=== PATIENT | female | born 1960 | race Caucasian/White ===

== ENCOUNTER → 2016-08-07 | Outpatient (CLI) | payer BC, OTHER | END | disposition home or self-care (01) | LOC: MW.CHOBGYN 15:49 | PROVIDERS: ATTEND Obstetrics & Gynecology | DX: N93.9 Abnormal uterine and vaginal bleeding, unspecified (principal) | CPT/HCPCS: 88305 ==

== ENCOUNTER 2016-10-04 23:07 | Inpatient (IN) | payer BC, OTHER ==
--- NOTE | 2016-10-04 23:18 | EDM.PDOC ---
ED HPI GENERAL MEDICAL PROBLEM - General Chief Complaint: Lower Extremity Injury/Pain Stated Complaint: PT HURT RT ANKLE Time Seen by Provider: 10/04/16 23:12 - History of Present Illness INITIAL COMMENTS - FREE TEXT/NARRATIVE: HISTORY AND PHYSICAL: History of present illness: Patient 36-year-old female sensory concern of acute right hip injury that occurred when she was dancing tonight she denies any trauma or concern Review of systems: As per history of present illness and below otherwise all systems reviewed and negative. Past medical history: As per history of present illness and as reviewed below otherwise noncontributory. Surgical history: As per history of present illness and as reviewed below otherwise noncontributory. Social history: No reported history of drug or alcohol abuse. Family history: As per history of present illness and as reviewed below otherwise noncontributory. Physical exam: HEENT: Atraumatic, normocephalic, pupils reactive, negative for conjunctival pallor or scleral icterus, mucous membranes moist, throat clear, neck supple, nontender, trachea midline. Lungs: Clear to auscultation, breath sounds equal bilaterally, chest nontender. Heart: S1S2, regular, negative for clicks, rubs, or JVD. Abdomen: Soft, nondistended, nontender. Negative for masses or hepatosplenomegaly. Negative for costovertebral tenderness. Pelvis: Stable tenderness to palpation of her right hip noted Genitourinary: Deferred. Rectal: Deferred. Extremities: Patient's right lower extremity is externally rotated and slightly shortened neurovascular exam is unremarkable Neuro: Awake, alert, oriented. Cranial nerves II through XII unremarkable. Cerebellum unremarkable. Motor and sensory unremarkable throughout. Exam nonfocal. Diagnostics: X-ray right hip/pelvis CBC CMP PT/INR chest x-ray EKG type and screen Therapeutics: Normal saline at 125 an hour Dilaudid 1 mg IV Zofran 4 mg IV Impression: #1 acute right hip injury/fracture Definitive disposition and diagnosis as appropriate pending reevaluation and review of above. Right Hip Pain Score (Numeric/FACES): 8 - Related Data Allergies Allergy/AdvReac Type Severity Reaction Status Date / Time bee stings Allergy Swelling Uncoded 10/04/16 23:23 Home Meds: Home Meds Humalog 2 units SQ ASDIRECTED PRN 09/06/13 [History] Insulin Glarg,Human.Rec.Analog [LantUS Solostar] 30 unit SUBCUT DAILY 09/06/13 [ History] Lisinopril 20 mg PO DAILY 09/06/13 [History] Escitalopram [Lexapro] 10 mg PO DAILY 11/06/13 [History] Metoprolol Succinate [Toprol XL] 25 mg PO DAILY 11/06/13 [History] Past Medical History Cardiovascular History: Reports: Arrhythmia, Hypertension Genitourinary History: Reports: None Musculoskeletal History: Reports: Arthritis Psychiatric History: Reports: Anxiety, Depression Endocrine/Metabolic History: Reports: Diabetes, Type I Dermatologic History: Reports: None - Infectious Disease History Infectious Disease History: Reports: Chicken Pox, MRSA - Past Surgical History Female Surgical History: Reports: Tubal Ligation Dermatological Surgical History: Reports: Skin Graft Social & Family History - Family History Family Medical History: Noncontributory - Tobacco Use Smoking Status *Q: Never Smoker Second Hand Smoke Exposure: No - Caffeine Use Caffeine Use: Reports: None - Alcohol Use Days Per Week of Alcohol Use: 0 Number of Drinks Per Day: 4 Total Drinks Per Week: 0 - Recreational Drug Use Recreational Drug Use: No Review of Systems - Review of Systems Review Of Systems: ROS reveals no pertinent complaints other than HPI. ED EXAM, GENERAL - Physical Exam Exam: See Below (See dictation) Course - Vital Signs Last Recorded V/S: Last Vital Signs Temp 36.4 C 10/04/16 23:14 Pulse 75 10/04/16 23:14 Resp 16 10/04/16 23:14 BP 187/87 H 10/04/16 23:14 Pulse Ox 99 10/04/16 23:14 - Orders/Labs/Meds Orders: Active Orders 24 hr Category Date Time Status Hip Min 2V or 3V w Pelvis Rt [CR] Stat Exams 10/04/16 23:18 Taken Departure - Departure Time of Disposition: 23:43 Disposition: Admitted As Inpatient 67 Condition: Good Clinical Impression: Intertrochanteric fracture, hip - Discharge Information Forms: ED Department Discharge - My Orders Last 24 Hours: My Active Orders 10/04/16 23:18 Hip Min 2V or 3V w Pelvis Rt [CR] Stat - Assessment/Plan Last 24 Hours: My Active Orders 10/04/16 23:18 Hip Min 2V or 3V w Pelvis Rt [CR] Stat
[2016-10-04] MEDS ORDERED: HYDROmorphone 2 MG/ML Syringe IVPUSH ONE (23:44)
[2016-10-04] MEDS ORDERED: Sodium Chloride 0.9% 2.5 ML Syringe FLUSH PRN (23:44)
[2016-10-04] MEDS ORDERED: Ondansetron 4 MG/2 ML SDV IVPUSH ONE (23:44)
[2016-10-04] MEDS ORDERED: Sodium Chloride 0.9% 10 ML Syringe FLUSH PRN (23:44)
[2016-10-04] MEDS ORDERED: Sodium Chloride 0.9% 1,000 ML IV SCH (23:45)
--- NOTE | 2016-10-05 00:33 | PCM.HP ---
H&P History of Present Illness - General Date of Service: 10/05/16 - History of Present Illness Initial Comments - Free Text/Narative: she presented to the ED after a fall. She was diagnosed with a right hip fracture. Dr Evans was consulted by the emergency room and I was asked to admit the patient. She appeared intoxicated in the ED. She denies associated head injury She admits that she has been drinking but is very evasive about when and how much. She says that she does not drink everyday. Right Hip Pain Score (Numeric/FACES): 8 - Related Data Allergies/Adverse Reactions: Allergies Allergy/AdvReac Type Severity Reaction Status Date / Time bee stings Allergy Swelling Uncoded 10/04/16 23:23 Home Medications: Home Meds Humalog 2 units SQ ASDIRECTED PRN 09/06/13 [History] Insulin Glarg,Human.Rec.Analog [LantUS Solostar] 30 unit SUBCUT DAILY 09/06/13 [ History] Lisinopril 20 mg PO DAILY 09/06/13 [History] Escitalopram [Lexapro] 10 mg PO DAILY 11/06/13 [History] Metoprolol Succinate [Toprol XL] 25 mg PO DAILY 11/06/13 [History] Past Medical History HEENT History: Reports: None Cardiovascular History: Reports: Arrhythmia, Hypertension. Denies: Afib, CAD, Heart Failure Respiratory History: Denies: COPD, Croup, Cystic Fibrosis Gastrointestinal History: Denies: Cirrhosis Genitourinary History: Reports: None. Denies: Chronic Renal Insuffiency Musculoskeletal History: Reports: Arthritis Neurological History: Denies: Alzheimers Disease, MS, Reflex Sympathetic Dystrophy Psychiatric History: Reports: Anxiety, Depression Endocrine/Metabolic History: Reports: Diabetes, Type I Oncologic (Cancer) History: Reports: None Dermatologic History: Reports: None - Infectious Disease History Infectious Disease History: Reports: Chicken Pox, MRSA - Past Surgical History Female Surgical History: Reports: Tubal Ligation Dermatological Surgical History: Reports: Skin Graft Social & Family History - Family History Family Medical History: Noncontributory - Tobacco Use Smoking Status *Q: Never Smoker Second Hand Smoke Exposure: No - Caffeine Use Caffeine Use: Reports: None - Alcohol Use Alcohol Use History: Yes Days Per Week of Alcohol Use: 0 Number of Drinks Per Day: 4 Total Drinks Per Week: 0 Alcohol Use Comment: when asked she would not tell me details about how much she drinks alcohol - Recreational Drug Use Recreational Drug Use: No H&P Review of Systems - Review of Systems: Review Of Systems: See Below General: Denies: Fever, Chills HEENT: Denies: Ear Pain, Sore Throat Pulmonary: Denies: Shortness of Breath, Wheezing, Cough, Sputum Cardiovascular: Denies: Chest Pain, Palpitations, Edema Gastrointestinal: Denies: Abdominal Pain, Black Stool, Bloody Stool, Hematemesis , Hematochezia, Melena, Stool Incontinence, Vomiting Genitourinary: Denies: Dysuria, Hematuria Skin: Denies: Jaundice Neurological: Denies: Headache Exam - Exam Exam: See Below - Vital Signs Vital Signs: Last Vital Signs Temp 97.6 F 10/04/16 23:14 Pulse 75 10/04/16 23:14 Resp 16 10/04/16 23:14 BP 187/87 H 10/04/16 23:14 Pulse Ox 99 10/04/16 23:14 Weight: 70.3 kg - Exam General: Alert, Cooperative, Other (smells of alcohol; appears intoxicated. ) HEENT: EOMI Neck: Trachea Midline Lungs: Clear to Auscultation, Normal Respiratory Effort Cardiovascular: Regular Rate, Regular Rhythm Abdomen: Soft. No: Tenderness (Female) Exam: Deferred Rectal (Female) Exam: Deferred Extremities: Other (RLE : marked pain at the hip with any movement) Neurological: Cranial Nerves Intact, Normal Speech Neuro Extensive - Motor, Sensory, Reflexes: CN II-XII Intact. No: Facial palsy (L), Facial Palsy (R) Psychiatric: Other (no tremor). No: Agitated, Hallucinations - Patient Data Result Diagrams: 10/04/16 23:40 *Q Meaningful Use (ADM) - VTE *Q VTE Criteria *Q: - Stroke *Q Stroke Criteria *Q: - AMI *Q AMI Criteria *Q: - Problem List (1) Alcohol intoxication SNOMED Code(s): 02729816 ICD Code: F10.929 - ALCOHOL USE, UNSPECIFIED WITH INTOXICATION, UNSPECIFIED Status: Acute Current Visit: Yes (2) Intertrochanteric fracture, hip SNOMED Code(s): 962084576 ICD Code: S72.143A - DISPLACED INTERTROCHANTERIC FRACTURE OF UNSP FEMUR, INIT Status: Acute Current Visit: Yes Problem List Initiated/Reviewed/Updated: Yes Orders Last 24hrs: Active Orders 24 hr Category Date Time Status ETOH [ETHANOL BLOOD MEDICAL] [CHEM] Stat Lab 10/05/16 00:20 Received MAGNESIUM [CHEM] Routine Lab 10/05/16 00:20 Received Medication Orders Sodium Chloride (Normal Saline) 1,000 mls @ 125 mls/hr IV STAT NILE Last Admin: 10/05/16 00:05 Dose: 125 mls/hr Sodium Chloride (Saline Flush) 10 ml FLUSH ASDIRECTED PRN PRN Reason: Keep Vein Open Sodium Chloride (Saline Flush) 2.5 ml FLUSH ASDIRECTED PRN PRN Reason: Keep Vein Open Assessment/Plan Comment:: admit DR Evans already notified check chemistries check alcohol level banana bag monitor in ICU ativan prn per JAY scale Will check PT/ INR; She should have an acceptable surgical risk but I recommend waiting at least until am. will check EKG. I recommend observation in the ICU post operatively as she may be at high risk for alcohol withdrawl complications. She is evasive regarding her alcohol history and we do not know what her alcohol intake might be.
[2016-10-05] MEDS ORDERED: LORazepam 2 MG/ML MDV IVPUSH PRN (00:37)
[2016-10-05] MEDS ORDERED: MVI, Adult with Vitamin K 10 ML, Thiamine 100 MG, Folic Acid 1 MG in Sodium Chloride 0.... IV ONE ×4 (00:37)
[2016-10-05] MEDS: Insulin Aspart 100 Units/ML 3 ML Pen SUBCUT SCH ×5 (01:27→21:22)
[2016-10-05] MEDS: HYDROmorphone 1 MG/ML Syringe IVPUSH PRN ×5 (02:21→21:35)
[2016-10-05] MEDS: Ondansetron 4 MG/2 ML SDV IVPUSH PRN ×3 (04:32→16:52)
--- NOTE | 2016-10-05 06:15 | PCM.CONS ---
H&P History of Present Illness - General Date of Service: 10/05/16 Source of Information: Patient History Limitations: Reports: No Limitations - History of Present Illness Initial Comments - Free Text/Narative: 56 y/o female who was dancing last night. States her R hip suddenly gave out on her and she fell. c/o pain in her R hip and groin. Denies other injuries. Was evaluated in ER. XR show fracture of R hip, IT. Admitted for evaluation. Was seen by hospitalist. BG and ETOH found to be elevated, Na decreased. Denies previous h/o R hip pain. Denies distal paralysis, paresthesias. No h/o blood clots. Symptom Onset Date: 10/04/16 Quality: Reports: Sharp, Stabbing Improves with: Reports: Immobilization, Medication Worsens with: Reports: Movement Context: Reports: Trauma Associated Symptoms: Reports: No Other Symptoms Right Hip Pain Score (Numeric/FACES): 6 - Related Data Allergies/Adverse Reactions: Allergies Allergy/AdvReac Type Severity Reaction Status Date / Time bee stings Allergy Swelling Uncoded 10/04/16 23:23 Home Medications: Home Meds Humalog 2 units SQ ASDIRECTED PRN 09/06/13 [History] Insulin Glarg,Human.Rec.Analog [LantUS Solostar] 30 unit SUBCUT DAILY 09/06/13 [ History] Lisinopril 20 mg PO DAILY 09/06/13 [History] Escitalopram [Lexapro] 10 mg PO DAILY 11/06/13 [History] Metoprolol Succinate [Toprol XL] 25 mg PO DAILY 11/06/13 [History] Past Medical History HEENT History: Reports: None Cardiovascular History: Reports: Arrhythmia, Hypertension Respiratory History: Denies: COPD, Croup, Cystic Fibrosis Gastrointestinal History: Denies: Cirrhosis Genitourinary History: Reports: None Musculoskeletal History: Reports: Arthritis, Other (See Below) (h/o proximal humerus fracture treated conservatively) Neurological History: Denies: Alzheimers Disease, MS, Reflex Sympathetic Dystrophy Psychiatric History: Reports: Anxiety, Depression Endocrine/Metabolic History: Reports: Diabetes, Type I Oncologic (Cancer) History: Reports: None Dermatologic History: Reports: None - Infectious Disease History Infectious Disease History: Reports: Chicken Pox, MRSA (ankle wound ~5 years ago ) - Past Surgical History Female Surgical History: Reports: Tubal Ligation Dermatological Surgical History: Reports: Skin Graft Social & Family History - Family History Family Medical History: Noncontributory - Tobacco Use Smoking Status *Q: Never Smoker Second Hand Smoke Exposure: Yes - Caffeine Use Caffeine Use: Reports: None - Alcohol Use Days Per Week of Alcohol Use: 0 Number of Drinks Per Day: 4 Total Drinks Per Week: 0 Date of Last Drink: 10/04/16 Time of Last Drink: 20:00 - Recreational Drug Use Recreational Drug Use: No H&P Review of Systems - Review of Systems: Review Of Systems: See Below General: Reports: No Symptoms HEENT: Reports: No Symptoms Pulmonary: Reports: No Symptoms Cardiovascular: Reports: No Symptoms Gastrointestinal: Reports: No Symptoms Genitourinary: Reports: No Symptoms Musculoskeletal: Reports: Joint Pain Skin: Reports: No Symptoms Psychiatric: Reports: No Symptoms Neurological: Reports: No Symptoms Hematologic/Lymphatic: Reports: No Symptoms Immunologic: Reports: No Symptoms Exam - Exam Exam: See Below - Vital Signs Vital Signs: Last Vital Signs Temp 98.4 F 10/05/16 04:00 Pulse 76 10/05/16 01:00 Resp 10 L 10/05/16 05:00 BP 108/51 L 10/05/16 05:00 Pulse Ox 96 10/05/16 05:00 Weight: 70.7 kg - Exam General: Alert, Oriented, Cooperative HEENT: Conjunctiva Clear, Hearing Intact, Nares Patent, Pupils Equal Neck: Supple, Trachea Midline, 2 Lungs: Normal Respiratory Effort Cardiovascular: Regular Rate Abdomen: Soft, Pelvis Stable (Female) Exam: Deferred Rectal (Female) Exam: Deferred Neuro Extensive - Mental Status: Alert, Oriented x3, Normal Mood/Affect, Normal Cognition Psychiatric: Alert, Normal Affect, Normal Mood Physical Exam Comments:: Exam of RLE shows no obvious deformity. Pain with gently log rolling of R hip, no pain with L hip motion. No TTP about knee, ankle. No calf tenderness. AT/EHL/ gastroc 5/5. Sensation intact. DP 2+. 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 Displaced fracture through R hip IT. Consult PN Assessment/Plan Procedures: Procedures ASSAY OF LACTIC ACID (01/21/16) ASSAY OF LIPASE (12/06/13) ASSAY OF NATRIURETIC PEPTIDE (01/21/16) BLOOD CULTURE FOR BACTERIA (01/21/16) CHEST X-RAY 2VW FRONTAL&LATL (01/21/16) COMPLETE CBC W/AUTO DIFF WBC (01/21/16) COMPREHEN METABOLIC PANEL (01/21/16) CT ABD & PELV W/CONTRAST (11/06/13) ELECTROCARDIOGRAM TRACING (01/21/16) EMERGENCY DEPT VISIT (01/21/16) EMERGENCY DEPT VISIT (11/08/15) EMERGENCY DEPT VISIT (07/23/15) EMERGENCY DEPT VISIT (07/13/14) EMERGENCY DEPT VISIT (09/06/13) EXTRACRANIAL BILAT STUDY (01/03/16) GLUCOSE BLOOD TEST (11/08/15) HYDRATE IV INFUSION ADD-ON (07/13/14) HYDRATION IV INFUSION INIT (01/21/16) ROUTINE VENIPUNCTURE (07/13/14) THER/PROPH/DIAG INJ IV PUSH (12/06/13) TISSUE EXAM BY PATHOLOGIST (08/07/16) TRANSVAGINAL US NON-OB (06/04/16) TX/PRO/DX INJ NEW DRUG ADDON (11/06/13) URINALYSIS AUTO W/SCOPE (01/21/16) X-RAY EXAM OF FOOT (01/21/16) (1) Intertrochanteric fracture, hip SNOMED Code(s): 501535916 Code(s): S72.143A - DISPLACED INTERTROCHANTERIC FRACTURE OF UNSP FEMUR, INIT Current Visit: Yes Problem List Initiated/Reviewed/Updated: Yes Plan: With the unstable R hip IT hip fx, I am recommending surgical treatment--CR R hip with insertion of CM nail. The procedure was discussed with the patient along with the post operative course. Risks of procedure include, but are not limited to, infection, N/V injury, non union, malunion, HW irritation, blood clots, need for transfusion, and anesthetic complications. Patient seems to understand these risks and would like to proceed. With her multiple medical comorbidities including elevated BG, ETOH intoxication , and hyponatremia, would recommend further medical evaluation. Will plan to have hospitalist see today and make recommendations. If he feels she is medically ready for surgery tomorrow am, will plan to proceed. Otherwise, we will plan on proceeding when she is medically clear.
[2016-10-05] MEDS ORDERED: Pantoprazole 40 MG in Sodium Chloride 0.9% 10 ML IVPUSH ONE (12:45)
[2016-10-05] MEDS: Acetaminophen 500 MG Tab PO PRN (13:38)
--- NOTE | 2016-10-05 13:40 | PCM.PN ---
- General Info Date of Service: 10/05/16 - Review of Systems General: Denies: Fever Systems Review Comment:: she feels nauseated and vomited today. - Patient Data Vitals - most recent: Last Vital Signs Temp 98.6 F 10/05/16 11:00 Pulse 76 10/05/16 01:00 Resp 13 10/05/16 12:00 BP 138/59 L 10/05/16 12:00 Pulse Ox 96 10/05/16 12:00 Weight - most recent: 70.7 kg I&O - last 24 hours: Intake & Output 10/04/16 10/05/16 10/05/16 22:59 06:59 14:59 Intake Total 0 2000 Output Total 1100 Balance -1100 2000 Lab Results last 24 hrs: Laboratory Results - last 24 hr 10/05/16 10/05/16 10/05/16 Range/Units 00:03 01:16 06:02 WBC 17.67 H (4.0-11.0) K/uL RBC 3.82 L (4.30-5.90) M/uL Hgb 11.6 L (12.0-16.0) g/dL Hct 35.1 L (36.0-46.0) % MCV 91.9 (80.0-98.0) fL MCH 30.4 (27.0-32.0) pg MCHC 33.0 (31.0-37.0) g/dL RDW Std Deviation 42.2 (28.0-62.0) fl RDW Coeff of Mahesh 13 (11.0-15.0) % Plt Count 288 (150-400) K/uL MPV 10.70 (7.40-12.00) fL Neut % (Auto) 77.5 (48.0-80.0) % Lymph % (Auto) 12.1 L (16.0-40.0) % Craig % (Auto) 8.5 (0.0-15.0) % Eos % (Auto) 1.8 (0.0-7.0) % Baso % (Auto) 0.1 (0.0-1.5) % Neut # (Auto) 13.7 H (1.4-5.7) K/uL Lymph # (Auto) 2.1 (0.6-2.4) K/uL Craig # (Auto) 1.5 H (0.0-0.8) K/uL Eos # (Auto) 0.3 (0.0-0.7) K/uL Baso # (Auto) 0.0 (0.0-0.1) K/uL Nucleated RBC % 0.0 /100WBC Nucleated RBCs # 0 K/uL Sodium (136-146) mmol/L Potassium (3.5-5.1) mmol/L Chloride (98-110) mmol/L Carbon Dioxide (21-31) mmol/L BUN (6.0-23.0) mg/dL Creatinine (0.6-1.5) mg/dL Est Cr Clr Drug Dosing mL/min Estimated GFR (MDRD) ml/min Glucose (60-110) mg/dL POC Glucose 349 H (60-110) mg/dL Calcium (8.8-10.8) mg/dL Magnesium (1.5-2.3) mEq/L Total Bilirubin (0.1-1.5) mg/dL AST (5-40) IU/L ALT (8-54) IU/L Alkaline Phosphatase (40-150) Total Protein (6.0-8.0) g/dL Albumin (3.5-5.0) g/dL Globulin (2.0-3.5) g/dL Albumin/Globulin Ratio (1.3-2.8) Blood Type O POSITIVE Antibody Screen NEGATIVE 10/05/16 10/05/16 10/05/16 Range/Units 06:02 06:47 10:55 WBC (4.0-11.0) K/uL RBC (4.30-5.90) M/uL Hgb (12.0-16.0) g/dL Hct (36.0-46.0) % MCV (80.0-98.0) fL MCH (27.0-32.0) pg MCHC (31.0-37.0) g/dL RDW Std Deviation (28.0-62.0) fl RDW Coeff of Mahesh (11.0-15.0) % Plt Count (150-400) K/uL MPV (7.40-12.00) fL Neut % (Auto) (48.0-80.0) % Lymph % (Auto) (16.0-40.0) % Craig % (Auto) (0.0-15.0) % Eos % (Auto) (0.0-7.0) % Baso % (Auto) (0.0-1.5) % Neut # (Auto) (1.4-5.7) K/uL Lymph # (Auto) (0.6-2.4) K/uL Craig # (Auto) (0.0-0.8) K/uL Eos # (Auto) (0.0-0.7) K/uL Baso # (Auto) (0.0-0.1) K/uL Nucleated RBC % /100WBC Nucleated RBCs # K/uL Sodium 137 (136-146) mmol/L Potassium 4.3 (3.5-5.1) mmol/L Chloride 104 (98-110) mmol/L Carbon Dioxide 21 (21-31) mmol/L BUN 36 H (6.0-23.0) mg/dL Creatinine 1.2 (0.6-1.5) mg/dL Est Cr Clr Drug Dosing 53.65 mL/min Estimated GFR (MDRD) 46.6 ml/min Glucose 123 H (60-110) mg/dL POC Glucose 118 H 169 H (60-110) mg/dL Calcium 8.6 L (8.8-10.8) mg/dL Magnesium 1.6 (1.5-2.3) mEq/L Total Bilirubin 0.4 (0.1-1.5) mg/dL AST 20 (5-40) IU/L ALT 25 (8-54) IU/L Alkaline Phosphatase 108 (40-150) Total Protein 6.4 (6.0-8.0) g/dL Albumin 3.8 (3.5-5.0) g/dL Globulin 2.6 (2.0-3.5) g/dL Albumin/Globulin Ratio 1.5 (1.3-2.8) Blood Type Antibody Screen Med Orders - Current: Current Medications Acetaminophen (Tylenol Extra Strength) 1,000 mg PO Q6H PRN PRN Reason: Pain Hydromorphone HCl (Dilaudid) 1 mg IVPUSH Q2H PRN PRN Reason: Pain (severe 7-10) Last Admin: 10/05/16 10:33 Dose: 1 mg Sodium Chloride (Normal Saline) 1,000 mls @ 125 mls/hr IV STAT NILE Last Infusion: 10/05/16 12:56 Dose: 100 mls/hr Vancomycin HCl 1 gm/ Sodium (Chloride) 250 mls @ 167 mls/hr IV ONETIME ONE Stop: 10/06/16 08:29 Pantoprazole Sodium 40 mg/ (Sodium Chloride) 10 mls @ 300 mls/hr IVPUSH Q12H NILE Sodium Chloride (Normal Saline) 1,000 mls @ 100 mls/hr IV ASDIRECTED NILE Insulin Aspart (Novolog) 0 unit SUBCUT QIDACANDBED NILE PRN Reason: Protocol Last Admin: 10/05/16 10:57 Dose: 2 units Lorazepam (Ativan) 0 mg IVPUSH Q4H PRN; Protocol PRN Reason: Anxiety Ondansetron HCl (Zofran) 4 mg IVPUSH Q4H PRN PRN Reason: Nausea Last Admin: 10/05/16 10:53 Dose: 4 mg Sodium Chloride (Saline Flush) 10 ml FLUSH ASDIRECTED PRN PRN Reason: Keep Vein Open Sodium Chloride (Saline Flush) 2.5 ml FLUSH ASDIRECTED PRN PRN Reason: Keep Vein Open Discontinued Medications Hydromorphone HCl (Dilaudid) 1 mg IVPUSH ONETIME ONE Stop: 10/04/16 23:45 Last Admin: 10/05/16 00:06 Dose: 1 mg Multivitamins/Minerals 10 ml/Thiamine HCl 100 mg/ Folic Acid 1 mg/ Sodium Chloride 1,011.2 mls @ 125 mls/hr IV DAILY ONE Stop: 10/05/16 08:42 Last Admin: 10/05/16 01:24 Dose: 125 mls/hr Pantoprazole Sodium 40 mg/ (Sodium Chloride) 10 mls @ 300 mls/hr IVPUSH NOW ONE Stop: 10/05/16 12:46 Last Admin: 10/05/16 13:18 Dose: 300 mls/hr Insulin Aspart (Novolog) 0 unit SUBCUT Q6H NILE PRN Reason: Protocol Last Admin: 10/05/16 06:47 Dose: Not Given Ondansetron HCl (Zofran) 4 mg IVPUSH ONETIME ONE Stop: 10/04/16 23:45 Last Admin: 10/05/16 00:06 Dose: 4 mg - Exam General: alert, oriented, cooperative Neck: trachea midline Lungs: Clear to auscultation, Normal respiratory effort Cardiovascular: Regular Rate, Regular Rhythm Abdomen: no tenderness - Problem List & Annotations (1) Alcohol intoxication SNOMED Code(s): 02251601 Code(s): F10.929 - ALCOHOL USE, UNSPECIFIED WITH INTOXICATION, UNSPECIFIED Status: Acute Current Visit: Yes (2) Intertrochanteric fracture, hip SNOMED Code(s): 254312119 Code(s): S72.143A - DISPLACED INTERTROCHANTERIC FRACTURE OF UNSP FEMUR, INIT Status: Acute Current Visit: Yes (3) Diabetes mellitus SNOMED Code(s): 49342498 Code(s): E11.9 - TYPE 2 DIABETES MELLITUS WITHOUT COMPLICATIONS Status: Acute Current Visit: Yes - Problem List Review Problem List Initiated/Reviewed/Updated: Yes - My Orders Last 24 Hours: My Active Orders 10/04/16 23:46 Admission Status [Patient Status] [ADT] Routine Consult to Physician [CONS] Routine 10/05/16 00:37 Blood Glucose Check, Bedside [RC] QIDACANDBED Oxygen Therapy [RC] PRN Vital Signs [RC] Q1H HYDROmorphone [Dilaudid] 1 mg IVPUSH Q2H PRN LORazepam [Ativan] See Protocol IVPUSH Q4H PRN Ondansetron [Zofran] 4 mg IVPUSH Q4H PRN Resuscitation Status Routine 10/05/16 00:45 Norris Catheter Insertion [Insert Urinary Catheter] [OM.PC] Q24H 10/05/16 02:49 Urinary Catheter Assessment [RC] Q4H 10/05/16 05:35 Notify Provider Consults [RC] ASDIRECTED 10/05/16 11:30 Insulin Aspart [NovoLOG] See Protocol SUBCUT QIDACANDBED 10/05/16 12:45 Sodium Chloride 0.9% [Normal Saline] 1,000 ml IV ASDIRECTED 10/05/16 22:00 Pantoprazole [ProTONIX IV] 40 mg Sodium Chloride 0.9% [Normal Saline] 10 ml IVPUSH Q12H 10/06/16 05:11 CBC WITH AUTO DIFF [HEME] AM COMPREHENSIVE METABOLIC PN,CMP [CHEM] AM MAGNESIUM [CHEM] AM 10/07/16 05:11 CBC WITH AUTO DIFF [HEME] AM COMPREHENSIVE METABOLIC PN,CMP [CHEM] AM MAGNESIUM [CHEM] AM - Plan Plan:: admit DR Evans already notified check chemistries check alcohol level banana bag monitor in ICU ativan prn per CIWA scale Will check PT/ INR; She should have an acceptable surgical risk but I recommend waiting at least until am. will check EKG. I recommend observation in the ICU post operatively as she may be at high risk for alcohol withdrawl complications. She is evasive regarding her alcohol history and we do not know what her alcohol intake might be. Thierno Yancey MD 10/05/2016 monitor blood sugars. she has not had signs or symptoms of alcohol withdrawl according to nursing staff. I read Dr Evans's consult anticipate ORIF tomorrow. symptomatic treatement of nausea Thierno yancey MD
[2016-10-05] MEDS: Sodium Chloride 0.9% 1,000 ML IV SCH (17:12)
[2016-10-05] MEDS: Pantoprazole 40 MG in Sodium Chloride 0.9% 10 ML IVPUSH SCH (21:23)
[2016-10-06] MEDS: HYDROmorphone 1 MG/ML Syringe IVPUSH PRN ×3 (02:32→13:05)
[2016-10-06] MEDS: Sodium Chloride 0.9% 1,000 ML IV SCH (03:14)
[2016-10-06 06:37] LABS: CHLORIDE,CL 105 mmol/L (98-110); SODIUM,NA 135 mmol/L (136-146)
[2016-10-06] MEDS ORDERED: Ondansetron 4 MG/2 ML SDV ONE (07:22)
[2016-10-06] MEDS ORDERED: Propofol 200 MG/20 ML SDV ONE (07:23)
[2016-10-06] MEDS ORDERED: Midazolam 1 MG/ML 2 ML SDV ONE (07:23)
[2016-10-06] MEDS ORDERED: fentaNYL 100 MCG/2 ML SDV ONE (07:23)
[2016-10-06] MEDS: Insulin Aspart 100 Units/ML 3 ML Pen SUBCUT SCH ×4 (07:24→21:05)
[2016-10-06] MEDS ORDERED: Scopolamine 1.5 MG Transdermal Patch ONE (07:45)
--- NOTE | 2016-10-06 08:01 | PCM.PREANE ---
Preanesthetic Assessment - Anesthesia/Transfusion/Family Hx Anesthesia History: Prior Anesthesia Without Reaction Transfusion History: No Prior Transfusion(s) - Review of Systems Gastrointestinal: Nausea Other: Reports: None - Physical Assessment O2 Sat by Pulse Oximetry: 97 Respiratory Rate: 12 Vital Signs: Last Vital Signs Temp 37.4 C 10/06/16 07:37 Pulse 76 10/05/16 01:00 Resp 12 10/06/16 07:37 BP 175/66 H 10/06/16 07:37 Pulse Ox 97 10/06/16 07:37 Height: 5 ft 8.11 in Weight: 71.4 kg ASA Class: 2E Mental Status: Alert & Oriented x3 Airway Class: Mallampati = 2 Dentition: Reports: Normal Dentition Thyro-Mental Finger Breadths: 3 Mouth Opening Finger Breadths: 3 ROM/Head Extension: Full - Lab Values: Laboratory Last Values WBC 10.99 K/uL (4.0-11.0) 10/06/16 05:50 RBC 3.63 M/uL (4.30-5.90) L 10/06/16 05:50 Hgb 11.1 g/dL (12.0-16.0) L 10/06/16 05:50 Hct 34.2 % (36.0-46.0) L 10/06/16 05:50 MCV 94.2 fL (80.0-98.0) 10/06/16 05:50 MCH 30.6 pg (27.0-32.0) 10/06/16 05:50 MCHC 32.5 g/dL (31.0-37.0) 10/06/16 05:50 RDW Std Deviation 43.5 fl (28.0-62.0) 10/06/16 05:50 RDW Coeff of Mahesh 13 % (11.0-15.0) 10/06/16 05:50 Plt Count 257 K/uL (150-400) 10/06/16 05:50 MPV 11.00 fL (7.40-12.00) 10/06/16 05:50 Neut % (Auto) 66.0 % (48.0-80.0) 10/06/16 05:50 Lymph % (Auto) 22.4 % (16.0-40.0) 10/06/16 05:50 [place] % (Auto) 8.8 % (0.0-15.0) 10/06/16 05:50 Eos % (Auto) 2.6 % (0.0-7.0) 10/06/16 05:50 Baso % (Auto) 0.2 % (0.0-1.5) 10/06/16 05:50 Neut # (Auto) 7.3 K/uL (1.4-5.7) H 10/06/16 05:50 Lymph # (Auto) 2.5 K/uL (0.6-2.4) H 10/06/16 05:50 [place] # (Auto) 1.0 K/uL (0.0-0.8) H 10/06/16 05:50 Eos # (Auto) 0.3 K/uL (0.0-0.7) 10/06/16 05:50 Baso # (Auto) 0.0 K/uL (0.0-0.1) 10/06/16 05:50 Nucleated RBC % 0.0 /100WBC 10/06/16 05:50 Nucleated RBCs # 0 K/uL 10/06/16 05:50 INR 0.88 (0.86-1.11) 10/04/16 23:40 Sodium 135 mmol/L (136-146) L 10/06/16 05:50 Potassium 4.8 mmol/L (3.5-5.1) 10/06/16 05:50 Chloride 105 mmol/L (98-110) 10/06/16 05:50 Carbon Dioxide 20 mmol/L (21-31) L 10/06/16 05:50 BUN 26 mg/dL (6.0-23.0) H 10/06/16 05:50 Creatinine 0.9 mg/dL (0.6-1.5) 10/06/16 05:50 Est Cr Clr Drug Dosing 71.53 mL/min 10/06/16 05:50 Estimated GFR (MDRD) > 60.0 ml/min 10/06/16 05:50 Glucose 295 mg/dL (60-110) H 10/06/16 05:50 POC Glucose 276 mg/dL (60-110) H 10/06/16 07:20 Calcium 8.2 mg/dL (8.8-10.8) L 10/06/16 05:50 Magnesium 1.5 mEq/L (1.5-2.3) 10/06/16 05:50 Total Bilirubin 0.7 mg/dL (0.1-1.5) 10/06/16 05:50 AST 17 IU/L (5-40) 10/06/16 05:50 ALT 21 IU/L (8-54) 10/06/16 05:50 Alkaline Phosphatase 104 (40-150) 10/06/16 05:50 Total Protein 5.6 g/dL (6.0-8.0) L 10/06/16 05:50 Albumin 3.2 g/dL (3.5-5.0) L 10/06/16 05:50 Globulin 2.4 g/dL (2.0-3.5) 10/06/16 05:50 Albumin/Globulin Ratio 1.3 (1.3-2.8) 10/06/16 05:50 Ethyl Alcohol 250.6 mg/dL 10/04/16 23:40 Blood Type O POSITIVE 10/05/16 00:03 Antibody Screen NEGATIVE 10/05/16 00:03 - Allergies Allergies/Adverse Reactions: Allergies Allergy/AdvReac Type Severity Reaction Status Date / Time bee stings Allergy Swelling Uncoded 10/04/16 23:23 - Blood Blood Available: Yes Product(s) Available: PRBC - Anesthesia Plan Free Text/Narrative:: zofran and scopalomine patch - Acknowledgements Anesthesia Type Planned: Spinal (with MAC, GETA backup) Pt an Appropriate Candidate for the Planned Anesthesia: Yes Alternatives and Risks of Anesthesia Discussed w Pt/Guardian: Yes Pt/Guardian Understands and Agrees with Anesthesia Plan: Yes PreAnesthesia Questionnaire HEENT History: Reports: None, Cataract (surgerys) Cardiovascular History: Reports: Arrhythmia, Hypertension Respiratory History: Denies: COPD, Croup, Cystic Fibrosis Gastrointestinal History: Denies: Cirrhosis Genitourinary History: Reports: None Musculoskeletal History: Reports: Arthritis, Other (See Below) (h/o proximal humerus fracture treated conservatively herniated disc C3-4) Neurological History: Denies: Alzheimers Disease, MS, Reflex Sympathetic Dystrophy Psychiatric History: Reports: Anxiety Endocrine/Metabolic History: Reports: Diabetes, Type I Oncologic (Cancer) History: Reports: None Dermatologic History: Reports: None - Infectious Disease History Infectious Disease History: Reports: Chicken Pox, MRSA (ankle wound ~5 years ago ) - Past Surgical History HEENT Surgical History: Reports: Cataract Surgery Female Surgical History: Reports: Tubal Ligation (30 plus years ago) Dermatological Surgical History: Reports: Skin Graft - SUBSTANCE USE Smoking Status *Q: Never Smoker Second Hand Smoke Exposure: Yes Days Per Week of Alcohol Use: 0 Number of Drinks Per Day: 4 Total Drinks Per Week: 0 Date of Last Drink: 10/04/16 Time of Last Drink: 20:00 Recreational Drug Use History: No - HOME MEDS Home Medications: Home Meds Humalog 2 units SQ ASDIRECTED PRN 09/06/13 [History] Insulin Glarg,Human.Rec.Analog [LantUS Solostar] 30 unit SUBCUT DAILY 09/06/13 [ History] Lisinopril 20 mg PO DAILY 09/06/13 [History] Escitalopram [Lexapro] 10 mg PO DAILY 11/06/13 [History] Metoprolol Succinate [Toprol XL] 25 mg PO DAILY 11/06/13 [History] - CURRENT (IN HOUSE) MEDS Current Meds: Current Medications Acetaminophen (Tylenol Extra Strength) 1,000 mg PO Q6H PRN PRN Reason: Pain Last Admin: 10/05/16 13:38 Dose: 1,000 mg Hydromorphone HCl (Dilaudid) 1 mg IVPUSH Q2H PRN PRN Reason: Pain (severe 7-10) Last Admin: 10/06/16 06:07 Dose: 1 mg Vancomycin HCl 1 gm/ Sodium (Chloride) 250 mls @ 167 mls/hr IV ONETIME ONE Stop: 10/06/16 08:29 Last Admin: 10/06/16 07:00 Dose: 167 mls/hr Pantoprazole Sodium 40 mg/ (Sodium Chloride) 10 mls @ 300 mls/hr IVPUSH Q12H [facility] Last Admin: 10/05/16 21:23 Dose: 300 mls/hr Sodium Chloride (Normal Saline) 1,000 mls @ 100 mls/hr IV ASDIRECTED [facility] Last Admin: 10/06/16 03:14 Dose: 100 mls/hr Prochlorperazine Edisylate 5 (mg/ Sodium Chloride) 51 mls @ 150 mls/hr IV Q6H PRN PRN Reason: Nausea/Vomiting Insulin Aspart (Novolog) 0 unit SUBCUT QIDACANDBED [facility] PRN Reason: Protocol Last Admin: 10/06/16 07:24 Dose: 6 units Lorazepam (Ativan) 0 mg IVPUSH Q4H PRN; Protocol PRN Reason: Anxiety Ondansetron HCl (Zofran) 4 mg IVPUSH Q4H PRN PRN Reason: Nausea Last Admin: 10/05/16 16:52 Dose: 4 mg Sodium Chloride (Saline Flush) 10 ml FLUSH ASDIRECTED PRN PRN Reason: Keep Vein Open Sodium Chloride (Saline Flush) 2.5 ml FLUSH ASDIRECTED PRN PRN Reason: Keep Vein Open Discontinued Medications Fentanyl (Sublimaze) Confirm Administered Dose 100 mcg .ROUTE .STK-MED ONE Stop: 10/06/16 07:24 Hydromorphone HCl (Dilaudid) 1 mg IVPUSH ONETIME ONE Stop: 10/04/16 23:45 Last Admin: 10/05/16 00:06 Dose: 1 mg Sodium Chloride (Normal Saline) 1,000 mls @ 125 mls/hr IV STAT [facility] Last Infusion: 10/05/16 12:56 Dose: 100 mls/hr Multivitamins/Minerals 10 ml/Thiamine HCl 100 mg/ Folic Acid 1 mg/ Sodium Chloride 1,011.2 mls @ 125 mls/hr IV DAILY ONE Stop: 10/05/16 08:42 Last Admin: 10/05/16 01:24 Dose: 125 mls/hr Pantoprazole Sodium 40 mg/ (Sodium Chloride) 10 mls @ 300 mls/hr IVPUSH NOW ONE Stop: 10/05/16 12:46 Last Admin: 10/05/16 13:18 Dose: 300 mls/hr Insulin Aspart (Novolog) 0 unit SUBCUT Q6H [facility] PRN Reason: Protocol Last Admin: 10/05/16 06:47 Dose: Not Given Midazolam HCl (Versed 1 Mg/Ml) Confirm Administered Dose 2 mg .ROUTE .STK-MED ONE Stop: 10/06/16 07:24 Ondansetron HCl (Zofran) 4 mg IVPUSH ONETIME ONE Stop: 10/04/16 23:45 Last Admin: 10/05/16 00:06 Dose: 4 mg Ondansetron HCl (Zofran) Confirm Administered Dose 4 mg .ROUTE .STK-MED ONE Stop: 10/06/16 07:23 Propofol (Diprivan 20 Ml) Confirm Administered Dose 1,200 mg .ROUTE .STK-MED ONE Stop: 10/06/16 07:24 Scopolamine (Transderm-Scop) Confirm Administered Dose 1.5 mg .ROUTE .STK-MED ONE Stop: 10/06/16 07:46
--- NOTE | 2016-10-06 08:07 | PCM.OPNOTE ---
- General Post-Op/Procedure Note Date of Surgery/Procedure: 10/06/16 Operative Procedure(s): CR R hip with insertion of CM nail Post-Op Diagnosis: R IT hip fracture, unstable Primary Surgeon: Chelsie Evans Bolt Man: Andrey Dhillon in mLs: 300 Condition: Good Free Text/Narrative:: #[id number] Intake & Output 10/05/16 10/06/16 10/06/16 22:59 06:59 14:59 Intake Total 1210 1300 Output Total 1300 550 400 Balance -90 750 -400
[2016-10-06] MEDS ORDERED: Phenylephrine 1% 10 MG/ML SDV ONE (08:41)
--- NOTE | 2016-10-06 10:33 | PCM.POSTAN ---
POST ANESTHESIA ASSESSMENT - MENTAL STATUS Mental Status: alert, oriented - RESPIRATORY Respiratory Status: respiratory rate WNL, airway patent, O2 saturation stable, supplemental oxygen - CARDIOVASCULAR CV Status: pulse rate WNL, blood pressure stable - GASTROINTESTINAL GI Status: no symptoms - PAIN Pain Score: 0 - POST OP HYDRATION Hydration Status: adequate & stable
[2016-10-06] MEDS: Pantoprazole 40 MG in Sodium Chloride 0.9% 10 ML IVPUSH SCH ×2 (10:49→21:07)
[2016-10-06] MEDS: Lactated Ringers 1,000 ML IV SCH ×2 (11:00→19:02)
[2016-10-06] MEDS: Ondansetron 4 MG/2 ML SDV IVPUSH PRN (11:51)
[2016-10-06] MEDS ORDERED: Prochlorperazine 5 MG in Sodium Chloride 0.9% 50 ML IV PRN (12:00)
[2016-10-06] MEDS: Acetaminophen 500 MG Tab PO PRN (12:05)
--- NOTE | 2016-10-06 12:26 | PCM.PN ---
- General Info Date of Service: 10/06/16 Subjective Update: she is nauseated. - Patient Data Vitals - most recent: Last Vital Signs Temp 97.5 F 10/06/16 10:00 Pulse 82 10/06/16 10:35 Resp 12 10/06/16 12:00 BP 152/50 H 10/06/16 12:00 Pulse Ox 96 10/06/16 12:00 Weight - most recent: 71.4 kg I&O - last 24 hours: Intake & Output 10/05/16 10/06/16 10/06/16 22:59 06:59 14:59 Intake Total 1210 1300 2250 Output Total 1300 550 600 Balance -90 750 1650 Lab Results last 24 hrs: Laboratory Results - last 24 hr 10/05/16 10/05/16 10/06/16 Range/Units 17:08 21:19 05:50 WBC 10.99 (4.0-11.0) K/uL RBC 3.63 L (4.30-5.90) M/uL Hgb 11.1 L (12.0-16.0) g/dL Hct 34.2 L (36.0-46.0) % MCV 94.2 (80.0-98.0) fL MCH 30.6 (27.0-32.0) pg MCHC 32.5 (31.0-37.0) g/dL RDW Std Deviation 43.5 (28.0-62.0) fl RDW Coeff of Mahesh 13 (11.0-15.0) % Plt Count 257 (150-400) K/uL MPV 11.00 (7.40-12.00) fL Neut % (Auto) 66.0 (48.0-80.0) % Lymph % (Auto) 22.4 (16.0-40.0) % [place] % (Auto) 8.8 (0.0-15.0) % Eos % (Auto) 2.6 (0.0-7.0) % Baso % (Auto) 0.2 (0.0-1.5) % Neut # (Auto) 7.3 H (1.4-5.7) K/uL Lymph # (Auto) 2.5 H (0.6-2.4) K/uL [place] # (Auto) 1.0 H (0.0-0.8) K/uL Eos # (Auto) 0.3 (0.0-0.7) K/uL Baso # (Auto) 0.0 (0.0-0.1) K/uL Nucleated RBC % 0.0 /100WBC Nucleated RBCs # 0 K/uL Sodium (136-146) mmol/L Potassium (3.5-5.1) mmol/L Chloride (98-110) mmol/L Carbon Dioxide (21-31) mmol/L BUN (6.0-23.0) mg/dL Creatinine (0.6-1.5) mg/dL Est Cr Clr Drug Dosing mL/min Estimated GFR (MDRD) ml/min Glucose (60-110) mg/dL POC Glucose 197 H 209 H (60-110) mg/dL Calcium (8.8-10.8) mg/dL Magnesium (1.5-2.3) mEq/L Total Bilirubin (0.1-1.5) mg/dL AST (5-40) IU/L ALT (8-54) IU/L Alkaline Phosphatase (40-150) Total Protein (6.0-8.0) g/dL Albumin (3.5-5.0) g/dL Globulin (2.0-3.5) g/dL Albumin/Globulin Ratio (1.3-2.8) 10/06/16 10/06/16 10/06/16 Range/Units 05:50 07:20 11:21 WBC (4.0-11.0) K/uL RBC (4.30-5.90) M/uL Hgb (12.0-16.0) g/dL Hct (36.0-46.0) % MCV (80.0-98.0) fL MCH (27.0-32.0) pg MCHC (31.0-37.0) g/dL RDW Std Deviation (28.0-62.0) fl RDW Coeff of Mahesh (11.0-15.0) % Plt Count (150-400) K/uL MPV (7.40-12.00) fL Neut % (Auto) (48.0-80.0) % Lymph % (Auto) (16.0-40.0) % [place] % (Auto) (0.0-15.0) % Eos % (Auto) (0.0-7.0) % Baso % (Auto) (0.0-1.5) % Neut # (Auto) (1.4-5.7) K/uL Lymph # (Auto) (0.6-2.4) K/uL [place] # (Auto) (0.0-0.8) K/uL Eos # (Auto) (0.0-0.7) K/uL Baso # (Auto) (0.0-0.1) K/uL Nucleated RBC % /100WBC Nucleated RBCs # K/uL Sodium 135 L (136-146) mmol/L Potassium 4.8 (3.5-5.1) mmol/L Chloride 105 (98-110) mmol/L Carbon Dioxide 20 L (21-31) mmol/L BUN 26 H (6.0-23.0) mg/dL Creatinine 0.9 (0.6-1.5) mg/dL Est Cr Clr Drug Dosing 71.53 mL/min Estimated GFR (MDRD) > 60.0 ml/min Glucose 295 H (60-110) mg/dL POC Glucose 276 H 230 H (60-110) mg/dL Calcium 8.2 L (8.8-10.8) mg/dL Magnesium 1.5 (1.5-2.3) mEq/L Total Bilirubin 0.7 (0.1-1.5) mg/dL AST 17 (5-40) IU/L ALT 21 (8-54) IU/L Alkaline Phosphatase 104 (40-150) Total Protein 5.6 L (6.0-8.0) g/dL Albumin 3.2 L (3.5-5.0) g/dL Globulin 2.4 (2.0-3.5) g/dL Albumin/Globulin Ratio 1.3 (1.3-2.8) Med Orders - Current: Current Medications Acetaminophen (Tylenol Extra Strength) 1,000 mg PO Q6H PRN PRN Reason: Pain Last Admin: 10/06/16 12:05 Dose: 1,000 mg Hydrocodone Bitart/Acetaminophen ([place] 325-10 Mg) 1 - 2 tab PO Q4H PRN PRN Reason: Pain Hydromorphone HCl (Dilaudid) 1 mg IVPUSH Q2H PRN PRN Reason: Pain (severe 7-10) Last Admin: 10/06/16 06:07 Dose: 1 mg Pantoprazole Sodium 40 mg/ (Sodium Chloride) 10 mls @ 300 mls/hr IVPUSH Q12H [facility] Last Admin: 10/06/16 10:49 Dose: 300 mls/hr Prochlorperazine Edisylate 5 (mg/ Sodium Chloride) 51 mls @ 150 mls/hr IV Q6H PRN PRN Reason: Nausea/Vomiting Vancomycin HCl 1 gm/ Sodium (Chloride) 250 mls @ 166.667 mls/hr IV ONETIME ONE Stop: 10/07/16 08:29 Lactated Ringer's (Ringers, Lactated) 1,000 mls @ 125 mls/hr IV ASDIRECTED [facility] Last Admin: 10/06/16 11:00 Dose: 125 mls/hr Insulin Aspart (Novolog) 0 unit SUBCUT QIDACANDBED [facility] PRN Reason: Protocol Last Admin: 10/06/16 11:23 Dose: 4 units Lorazepam (Ativan) 0 mg IVPUSH Q4H PRN; Protocol PRN Reason: Anxiety Ondansetron HCl (Zofran) 4 mg IVPUSH Q4H PRN PRN Reason: Nausea Last Admin: 10/06/16 11:51 Dose: 4 mg Rivaroxaban (Xarelto) 10 mg PO DAILY [facility] Sodium Chloride (Saline Flush) 10 ml FLUSH ASDIRECTED PRN PRN Reason: Keep Vein Open Sodium Chloride (Saline Flush) 2.5 ml FLUSH ASDIRECTED PRN PRN Reason: Keep Vein Open Discontinued Medications Fentanyl (Sublimaze) Confirm Administered Dose 100 mcg .ROUTE .STK-MED ONE Stop: 10/06/16 07:24 Hydromorphone HCl (Dilaudid) 1 mg IVPUSH ONETIME ONE Stop: 10/04/16 23:45 Last Admin: 10/05/16 00:06 Dose: 1 mg Sodium Chloride (Normal Saline) 1,000 mls @ 125 mls/hr IV STAT [facility] Last Infusion: 10/05/16 12:56 Dose: 100 mls/hr Multivitamins/Minerals 10 ml/Thiamine HCl 100 mg/ Folic Acid 1 mg/ Sodium Chloride 1,011.2 mls @ 125 mls/hr IV DAILY ONE Stop: 10/05/16 08:42 Last Admin: 10/05/16 01:24 Dose: 125 mls/hr Vancomycin HCl 1 gm/ Sodium (Chloride) 250 mls @ 167 mls/hr IV ONETIME ONE Stop: 10/06/16 08:29 Last Admin: 10/06/16 07:00 Dose: 167 mls/hr Sodium Chloride (Normal Saline) 1,000 mls @ 100 mls/hr IV ASDIRECTED [facility] Last Admin: 10/06/16 03:14 Dose: 100 mls/hr Pantoprazole Sodium 40 mg/ (Sodium Chloride) 10 mls @ 300 mls/hr IVPUSH NOW ONE Stop: 10/05/16 12:46 Last Admin: 10/05/16 13:18 Dose: 300 mls/hr Vancomycin HCl 1 gm/ Sodium (Chloride) 250 mls @ 166.667 mls/hr IV ONETIME ONE Stop: 10/07/16 08:29 Vancomycin HCl 1 gm/ Sodium (Chloride) 250 mls @ 166.667 mls/hr IV ONETIME ONE Stop: 10/06/16 11:59 Prochlorperazine Edisylate 5 (mg/ Sodium Chloride) 51 mls @ 150 mls/hr IV Q6H PRN PRN Reason: Nausea/Vomiting Insulin Aspart (Novolog) 0 unit SUBCUT Q6H [facility] PRN Reason: Protocol Last Admin: 10/05/16 06:47 Dose: Not Given Midazolam HCl (Versed 1 Mg/Ml) Confirm Administered Dose 2 mg .ROUTE .STK-MED ONE Stop: 10/06/16 07:24 Ondansetron HCl (Zofran) 4 mg IVPUSH ONETIME ONE Stop: 10/04/16 23:45 Last Admin: 10/05/16 00:06 Dose: 4 mg Ondansetron HCl (Zofran) Confirm Administered Dose 4 mg .ROUTE .STK-MED ONE Stop: 10/06/16 07:23 Phenylephrine HCl (Ramiro-Synephrine) Confirm Administered Dose 10 mg .ROUTE .STK- MED ONE Stop: 10/06/16 08:42 Propofol (Diprivan 20 Ml) Confirm Administered Dose 1,200 mg .ROUTE .STK-MED ONE Stop: 10/06/16 07:24 Scopolamine (Transderm-Scop) Confirm Administered Dose 1.5 mg .ROUTE .STK-MED ONE Stop: 10/06/16 07:46 Comments:: alert cooperative no hallucinations lungs CTA fine tremor hands abdomen non tender - Problem List & Annotations (1) Alcohol intoxication SNOMED Code(s): 08200545 Code(s): F10.929 - ALCOHOL USE, UNSPECIFIED WITH INTOXICATION, UNSPECIFIED Status: Acute Current Visit: Yes (2) Intertrochanteric fracture, hip SNOMED Code(s): 036960546 Code(s): S72.143A - DISPLACED INTERTROCHANTERIC FRACTURE OF UNSP FEMUR, INIT Status: Acute Current Visit: Yes (3) Diabetes mellitus SNOMED Code(s): 75748518 Code(s): E11.9 - TYPE 2 DIABETES MELLITUS WITHOUT COMPLICATIONS Status: Acute Current Visit: Yes (4) Alcohol withdrawal SNOMED Code(s): 607635294 Code(s): F10.239 - ALCOHOL DEPENDENCE WITH WITHDRAWAL, UNSPECIFIED Status: Acute Current Visit: Yes - Problem List Review Problem List Initiated/Reviewed/Updated: Yes - My Orders Last 24 Hours: My Active Orders 10/05/16 11:30 Insulin Aspart [NovoLOG] See Protocol SUBCUT QIDACANDBED 10/05/16 22:00 Pantoprazole [ProTONIX IV] 40 mg Sodium Chloride 0.9% [Normal Saline] 10 ml IVPUSH Q12H 10/06/16 11:00 Lactated Ringers [Ringers, Lactated] 1,000 ml IV ASDIRECTED 10/07/16 05:11 CBC WITH AUTO DIFF [HEME] AM COMPREHENSIVE METABOLIC PN,CMP [CHEM] AM MAGNESIUM [CHEM] AM - Plan Plan:: admit DR Evans already notified check chemistries check alcohol level banana bag monitor in ICU ativan prn per CIWA scale Will check PT/ INR; She should have an acceptable surgical risk but I recommend waiting at least until am. will check EKG. I recommend observation in the ICU post operatively as she may be at high risk for alcohol withdrawl complications. She is evasive regarding her alcohol history and we do not know what her alcohol intake might be. Thierno Yancey MD 10/05/2016 monitor blood sugars. she has not had signs or symptoms of alcohol withdrawl according to nursing staff. I read Dr Evans's consult anticipate ORIF tomorrow. symptomatic treatement of nausea Thierno yancey MD 10/06/16 I think that she is showing signs of alcohol withdrawl. ativan by [facility] protocol is ordered. continued sliding scale insulin for now. on protonix IV for stress ulcer/gastritis prophylaxis in light of likely alcoholism Thierno Yancey MD
--- NOTE | 2016-10-06 13:37 | OR ---
SURGEON: Chelsie Evans MD DATE OF PROCEDURE: 10/06/2016 PREOPERATIVE DIAGNOSIS: Right intertrochanteric hip fracture. POSTOPERATIVE DIAGNOSIS: Right intertrochanteric hip fracture. PROCEDURE PERFORMED: Closed reduction right hip with insertion of cephalomedullary nail. CUSTOMER DEVELOPMENT MANAGER: Andrey Dhillon PA-C. ANESTHESIA: Spinal with sedation. ESTIMATED BLOOD LOSS: 300 mL. TOURNIQUET TIME: 0 minutes. COMPLICATIONS: None. DVT PROPHYLAXIS: PAS boot and TREV hose to the nonoperative leg. IMPLANTS USED: Wilver 11 mm short gamma nail with 105 mm lag screw and 35 mm distal interlocking screw. BRIEF HISTORY: Kitty is a 56-year-old female who injured her right hip on 10/04/2016. She states she was dancing and felt the pain in her hip and fell. X-rays were obtained in the emergency room which showed a right intertrochanteric hip fracture. At that time, I recommended surgical intervention. The risks and goals of procedure were discussed with the patient and documented preoperatively. She agreed to proceed. DESCRIPTION OF PROCEDURE: The patient was properly identified and brought to the operating room. Spinal anesthesia was administered. After adequate anesthesia was obtained, she was placed onto the fracture table. A well-padded perineal post was placed between her legs. The right lower extremity was placed into a well-padded traction boot. The left lower extremity was placed onto a well leg mejia with the hip and knee flexed to 90 degrees. Care was taken to pad all bony prominences. Traction was applied to the right lower extremity. X-rays were obtained, which showed good reduction of the fracture. The right lower extremity was then prepped in standard fashion using ChloraPrep solution. It was then sterilely draped. A time-out was performed to ensure correct site and procedure. Preoperative antibiotics were given. The surgical site had been marked preoperatively. An incision was made just superior and posterior to the greater trochanter. The subcutaneous tissues were incised along with the fascia. The greater trochanter was palpable. A guide pin was placed at the tip of the greater trochanter. This was passed into the intramedullary canal. An opening reamer was used to open the proximal segment of the femur. I elected to proceed with a short gamma nail. I attempted to place this, however, the raleigh was met with some resistance distally. The raleigh was then removed and a large ball tip guide raleigh was placed. The femur was sequentially reamed up to 12.5 mm. The raleigh was again placed over the ball-tip guide raleigh and the cephalomedullary nail passed easily into the canal. It was malleted into position. The lag screw was then drilled with the K-wire after opening the lateral skin. It was slightly superior on the AP view, however, it was completely center on the lateral view, and I elected to proceed with placement of the screw in this position. It was measured and over drilled with a triple reamer. The 105 mm lag screw was then placed without difficulty. The raleigh was locked to the screw. The distal interlocking screw was then placed in standard fashion. Final C-arm images confirmed good reduction of the fracture with adequate position of the hardware. The wounds were then copiously irrigated with saline solution. The subcutaneous tissues were closed with 2-0 Vicryl. The skin was closed with rainer. Xeroform gauze was placed over the wound, and a bulky dressing was applied. She was removed from the fracture table placed back onto the operating room cart. She was brought to recovery room in stable condition. All needle and sponge counts were correct. ERIK / LEA /[id number]
[2016-10-06] MEDS: Prochlorperazine 5 MG in Sodium Chloride 0.9% 50 ML IV PRN (13:57)
[2016-10-06] MEDS: Acetaminophen/HYDROcodone 325-10 MG Tab PO PRN ×2 (14:17→20:59)
[2016-10-06] MEDS ORDERED: MVI, Adult with Vitamin K 10 ML, Thiamine 100 MG, Folic Acid 1 MG in Sodium Chloride 0.... IV ONE ×4 (20:43)
--- NOTE | 2016-10-06 21:16 | PCM48HPAN ---
Post Anesthesia Note - EVALUATION WITHIN 48HRS OF ANESTHETIC Vital Signs in Normal Range: Yes Patient Participated in Evaluation: Yes Respiratory Function Stable: Yes Airway Patent: Yes Cardiovascular Function Stable: Yes Hydration Status Stable: Yes Pain Control Satisfactory: Yes Nausea and Vomiting Control Satisfactory: Yes Mental Status Recovered: Yes
[2016-10-06] MEDS ORDERED: Furosemide 40 MG/4 ML VIAL IVPUSH ONE (21:26)
[2016-10-07] MEDS: Acetaminophen/HYDROcodone 325-10 MG Tab PO PRN ×3 (05:50→15:18)
[2016-10-07] MEDS: Prochlorperazine 5 MG in Sodium Chloride 0.9% 50 ML IV PRN (05:55)
[2016-10-07 06:30] LABS: CHLORIDE,CL 103 mmol/L (98-110); SODIUM,NA 137 mmol/L (136-146)
[2016-10-07] MEDS: Insulin Aspart 100 Units/ML 3 ML Pen SUBCUT SCH ×4 (07:42→21:09)
--- NOTE | 2016-10-07 07:53 | PCM.SURGPN ---
- General Info Date of Service: 10/07/16 Date of Surgery/Procedure: 10/06/16 POD#: 1 Functional Status: Reports: pain controlled, tolerating diet, ambulating - Review of Systems General: Reports: No Symptoms Pulmonary: Reports: no symptoms Cardiovascular: Reports: No Symptoms Gastrointestinal: Reports: No symptoms Genitourinary: Reports: no symptoms Musculoskeletal: Reports: leg pain, joint pain, joint swelling Neurological: Reports: No Symptoms Psychiatric: Reports: no symptoms - Patient Data Vitals - most recent: Last Vital Signs Temp 37.9 C 10/07/16 04:00 Pulse 82 10/06/16 10:35 Resp 9 L 10/07/16 07:00 BP 136/47 L 10/07/16 07:00 Pulse Ox 96 10/07/16 07:00 Weight - most recent: 75 kg I&O - last 24 hours: Intake & Output 10/06/16 10/07/16 10/07/16 22:59 06:59 14:59 Intake Total 1510 1550 Output Total 200 2100 Balance 1310 -550 Lab Results last 24 hrs: Laboratory Results - last 24 hr 10/06/16 10/06/16 10/06/16 Range/Units 11:21 18:15 21:02 WBC (4.0-11.0) K/uL RBC (4.30-5.90) M/uL Hgb (12.0-16.0) g/dL Hct (36.0-46.0) % MCV (80.0-98.0) fL MCH (27.0-32.0) pg MCHC (31.0-37.0) g/dL RDW Std Deviation (28.0-62.0) fl RDW Coeff of Mahesh (11.0-15.0) % Plt Count (150-400) K/uL MPV (7.40-12.00) fL Neut % (Auto) (48.0-80.0) % Lymph % (Auto) (16.0-40.0) % [place] % (Auto) (0.0-15.0) % Eos % (Auto) (0.0-7.0) % Baso % (Auto) (0.0-1.5) % Neut # (Auto) (1.4-5.7) K/uL Lymph # (Auto) (0.6-2.4) K/uL [place] # (Auto) (0.0-0.8) K/uL Eos # (Auto) (0.0-0.7) K/uL Baso # (Auto) (0.0-0.1) K/uL Nucleated RBC % /100WBC Nucleated RBCs # K/uL Sodium (136-146) mmol/L Potassium (3.5-5.1) mmol/L Chloride (98-110) mmol/L Carbon Dioxide (21-31) mmol/L BUN (6.0-23.0) mg/dL Creatinine (0.6-1.5) mg/dL Est Cr Clr Drug Dosing Estimated GFR (MDRD) ml/min Glucose (60-110) mg/dL POC Glucose 230 H 223 H 278 H (60-110) mg/dL Calcium (8.8-10.8) mg/dL Magnesium (1.5-2.3) mEq/L Total Bilirubin (0.1-1.5) mg/dL AST (5-40) IU/L ALT (8-54) IU/L Alkaline Phosphatase (40-150) Total Protein (6.0-8.0) g/dL Albumin (3.5-5.0) g/dL Globulin (2.0-3.5) g/dL Albumin/Globulin Ratio (1.3-2.8) 10/07/16 10/07/16 10/07/16 Range/Units 05:43 05:43 06:41 WBC 14.82 H (4.0-11.0) K/uL RBC 3.09 L (4.30-5.90) M/uL Hgb 9.5 L (12.0-16.0) g/dL Hct 29.4 L (36.0-46.0) % MCV 95.1 (80.0-98.0) fL MCH 30.7 (27.0-32.0) pg MCHC 32.3 (31.0-37.0) g/dL RDW Std Deviation 44.2 (28.0-62.0) fl RDW Coeff of Mahesh 13 (11.0-15.0) % Plt Count 248 (150-400) K/uL MPV 11.00 (7.40-12.00) fL Neut % (Auto) 80.0 (48.0-80.0) % Lymph % (Auto) 10.0 L (16.0-40.0) % [place] % (Auto) 7.7 (0.0-15.0) % Eos % (Auto) 1.9 (0.0-7.0) % Baso % (Auto) 0.4 (0.0-1.5) % Neut # (Auto) 11.9 H (1.4-5.7) K/uL Lymph # (Auto) 1.5 (0.6-2.4) K/uL [place] # (Auto) 1.1 H (0.0-0.8) K/uL Eos # (Auto) 0.3 (0.0-0.7) K/uL Baso # (Auto) 0.1 (0.0-0.1) K/uL Nucleated RBC % 0.0 /100WBC Nucleated RBCs # 0 K/uL Sodium 137 (136-146) mmol/L Potassium 4.6 (3.5-5.1) mmol/L Chloride 103 (98-110) mmol/L Carbon Dioxide 19 L (21-31) mmol/L BUN 19 (6.0-23.0) mg/dL Creatinine 0.9 (0.6-1.5) mg/dL Est Cr Clr Drug Dosing TNP Estimated GFR (MDRD) > 60.0 ml/min Glucose 353 H (60-110) mg/dL POC Glucose 344 H (60-110) mg/dL Calcium 8.6 L (8.8-10.8) mg/dL Magnesium 1.3 L (1.5-2.3) mEq/L Total Bilirubin 0.6 (0.1-1.5) mg/dL AST 20 (5-40) IU/L ALT 18 (8-54) IU/L Alkaline Phosphatase 91 (40-150) Total Protein 5.6 L (6.0-8.0) g/dL Albumin 3.1 L (3.5-5.0) g/dL Globulin 2.5 (2.0-3.5) g/dL Albumin/Globulin Ratio 1.2 L (1.3-2.8) Med Orders - Current: Current Medications Acetaminophen (Tylenol Extra Strength) 1,000 mg PO Q6H PRN PRN Reason: Pain Last Admin: 10/06/16 12:05 Dose: 1,000 mg Hydrocodone Bitart/Acetaminophen ([place] 325-10 Mg) 1 - 2 tab PO Q4H PRN PRN Reason: Pain Last Admin: 10/07/16 05:50 Dose: 2 tab Hydromorphone HCl (Dilaudid) 1 mg IVPUSH Q2H PRN PRN Reason: Pain (severe 7-10) Last Admin: 10/06/16 13:05 Dose: 1 mg Pantoprazole Sodium 40 mg/ (Sodium Chloride) 10 mls @ 300 mls/hr IVPUSH Q12H NILE Last Admin: 10/06/16 21:07 Dose: 300 mls/hr Prochlorperazine Edisylate 5 (mg/ Sodium Chloride) 51 mls @ 150 mls/hr IV Q6H PRN PRN Reason: Nausea/Vomiting Last Admin: 10/07/16 05:55 Dose: 150 mls/hr Vancomycin HCl 1 gm/ Sodium (Chloride) 250 mls @ 166.667 mls/hr IV ONETIME ONE Stop: 10/07/16 08:29 Last Admin: 10/07/16 06:16 Dose: 166.667 mls/hr Insulin Aspart (Novolog) 0 unit SUBCUT QIDACANDBED NILE PRN Reason: Protocol Last Admin: 10/07/16 07:42 Dose: 8 units Lorazepam (Ativan) 0 mg IVPUSH Q4H PRN; Protocol PRN Reason: Anxiety Ondansetron HCl (Zofran) 4 mg IVPUSH Q4H PRN PRN Reason: Nausea Last Admin: 10/06/16 11:51 Dose: 4 mg Rivaroxaban (Xarelto) 10 mg PO DAILY [facility] Sodium Chloride (Saline Flush) 10 ml FLUSH ASDIRECTED PRN PRN Reason: Keep Vein Open Sodium Chloride (Saline Flush) 2.5 ml FLUSH ASDIRECTED PRN PRN Reason: Keep Vein Open Discontinued Medications Fentanyl (Sublimaze) Confirm Administered Dose 100 mcg .ROUTE .STK-MED ONE Stop: 10/06/16 07:24 Furosemide (Lasix) 40 mg IVPUSH NOW ONE Stop: 10/06/16 21:27 Last Admin: 10/06/16 21:58 Dose: 40 mg Hydromorphone HCl (Dilaudid) 1 mg IVPUSH ONETIME ONE Stop: 10/04/16 23:45 Last Admin: 10/05/16 00:06 Dose: 1 mg Sodium Chloride (Normal Saline) 1,000 mls @ 125 mls/hr IV STAT [facility] Last Infusion: 10/05/16 12:56 Dose: 100 mls/hr Multivitamins/Minerals 10 ml/Thiamine HCl 100 mg/ Folic Acid 1 mg/ Sodium Chloride 1,011.2 mls @ 125 mls/hr IV DAILY ONE Stop: 10/05/16 08:42 Last Admin: 10/05/16 01:24 Dose: 125 mls/hr Vancomycin HCl 1 gm/ Sodium (Chloride) 250 mls @ 167 mls/hr IV ONETIME ONE Stop: 10/06/16 08:29 Last Admin: 10/06/16 07:00 Dose: 167 mls/hr Sodium Chloride (Normal Saline) 1,000 mls @ 100 mls/hr IV ASDIRECTED [facility] Last Admin: 10/06/16 03:14 Dose: 100 mls/hr Pantoprazole Sodium 40 mg/ (Sodium Chloride) 10 mls @ 300 mls/hr IVPUSH NOW ONE Stop: 10/05/16 12:46 Last Admin: 10/05/16 13:18 Dose: 300 mls/hr Vancomycin HCl 1 gm/ Sodium (Chloride) 250 mls @ 166.667 mls/hr IV ONETIME ONE Stop: 10/07/16 08:29 Vancomycin HCl 1 gm/ Sodium (Chloride) 250 mls @ 166.667 mls/hr IV ONETIME ONE Stop: 10/06/16 11:59 Lactated Ringer's (Ringers, Lactated) 1,000 mls @ 125 mls/hr IV ASDIRECTED [facility] Last Admin: 10/06/16 19:02 Dose: 125 mls/hr Prochlorperazine Edisylate 5 (mg/ Sodium Chloride) 51 mls @ 150 mls/hr IV Q6H PRN PRN Reason: Nausea/Vomiting Multivitamins/Minerals 10 ml/Thiamine HCl 100 mg/ Folic Acid 1 mg/ Sodium Chloride 1,011.2 mls @ 100 mls/hr IV ONETIME ONE Stop: 10/07/16 06:49 Last Admin: 10/06/16 21:27 Dose: 100 mls/hr Insulin Aspart (Novolog) 0 unit SUBCUT Q6H NILE PRN Reason: Protocol Last Admin: 10/05/16 06:47 Dose: Not Given Midazolam HCl (Versed 1 Mg/Ml) Confirm Administered Dose 2 mg .ROUTE .STK-MED ONE Stop: 10/06/16 07:24 Ondansetron HCl (Zofran) 4 mg IVPUSH ONETIME ONE Stop: 10/04/16 23:45 Last Admin: 10/05/16 00:06 Dose: 4 mg Ondansetron HCl (Zofran) Confirm Administered Dose 4 mg .ROUTE .STK-MED ONE Stop: 10/06/16 07:23 Phenylephrine HCl (Ramiro-Synephrine) Confirm Administered Dose 10 mg .ROUTE .STK- MED ONE Stop: 10/06/16 08:42 Propofol (Diprivan 20 Ml) Confirm Administered Dose 1,200 mg .ROUTE .STK-MED ONE Stop: 10/06/16 07:24 Scopolamine (Transderm-Scop) Confirm Administered Dose 1.5 mg .ROUTE .STK-MED ONE Stop: 10/06/16 07:46 - Exam Wound/Incisions: dressing dry and intact General: alert, oriented HEENT: Pupils equal, Pupils reactive Neck: trachea midline Lungs: Normal respiratory effort Cardiovascular: Regular Rate Abdomen: no distension Extremities: other (Right anterior tibialis, extensor hallucis longus and gastrocnemius strength +5/5 bilaterally. Sensation intact. Dorsalis pedis and posterior tibial pulses +2 bilaterally. ) Neurological: no new focal deficit Psy/Mental Status: alert, normal affect, normal mood - Problem List Review Problem List Initiated/Reviewed/Updated: Yes - My Orders Last 24 Hours: Active Orders 24 hr Category Date Time Status Activity as Tolerated [RC] .Routine Care 10/06/16 10:08 Active Intake and Output [RC] Q12H Care 10/06/16 10:08 Active RT Incentive Spirometry [RC] Care 10/06/16 10:08 Active PT Evaluation and Treatment [CONS] Routine Cons 10/07/16 07:00 Active Fluoro>1Hr [CR] Routine Exams 10/06/16 08:00 Taken Acetaminophen/HYDROcodone [[place] 325-10 MG] Med 10/06/16 10:12 Active 1 - 2 tab PO Q4H PRN Rivaroxaban [Xarelto] Med 10/07/16 09:00 Active 10 mg PO DAILY Vancomycin [Vancocin] 1 gm Med 10/07/16 07:00 Active Sodium Chloride 0.9% [Normal Saline] 250 ml IV ONETIME Ice Therapy [OM.PC] Routine Oth 10/06/16 10:06 Ordered Medication Orders Acetaminophen (Tylenol Extra Strength) 1,000 mg PO Q6H PRN PRN Reason: Pain Last Admin: 10/06/16 12:05 Dose: 1,000 mg Admin: 10/05/16 13:38 Dose: 1,000 mg Hydrocodone Bitart/Acetaminophen ([place] 325-10 Mg) 1 - 2 tab PO Q4H PRN PRN Reason: Pain Last Admin: 10/07/16 05:50 Dose: 2 tab Admin: 10/06/16 20:59 Dose: 2 tab Admin: 10/06/16 14:17 Dose: 2 tab Hydromorphone HCl (Dilaudid) 1 mg IVPUSH Q2H PRN PRN Reason: Pain (severe 7-10) Last Admin: 10/06/16 13:05 Dose: 1 mg Admin: 10/06/16 06:07 Dose: 1 mg Admin: 10/06/16 02:32 Dose: 1 mg Admin: 10/05/16 21:35 Dose: 1 mg Admin: 10/05/16 13:48 Dose: 1 mg Admin: 10/05/16 10:33 Dose: 1 mg Admin: 10/05/16 04:22 Dose: 1 mg Admin: 10/05/16 02:21 Dose: 1 mg Pantoprazole Sodium 40 mg/ (Sodium Chloride) 10 mls @ 300 mls/hr IVPUSH Q12H NILE Last Admin: 10/06/16 21:07 Dose: 300 mls/hr Infusion: 10/06/16 10:51 Dose: 300 mls/hr Admin: 10/06/16 10:49 Dose: 300 mls/hr Infusion: 10/05/16 21:25 Dose: 300 mls/hr Admin: 10/05/16 21:23 Dose: 300 mls/hr Prochlorperazine Edisylate 5 (mg/ Sodium Chloride) 51 mls @ 150 mls/hr IV Q6H PRN PRN Reason: Nausea/Vomiting Last Admin: 10/07/16 05:55 Dose: 150 mls/hr Infusion: 10/06/16 14:18 Dose: 150 mls/hr Admin: 10/06/16 13:57 Dose: 150 mls/hr Vancomycin HCl 1 gm/ Sodium (Chloride) 250 mls @ 166.667 mls/hr IV ONETIME ONE Stop: 10/07/16 08:29 Last Admin: 10/07/16 06:16 Dose: 166.667 mls/hr Insulin Aspart (Novolog) 0 unit SUBCUT QIDACANDBED NILE PRN Reason: Protocol Last Admin: 10/07/16 07:42 Dose: 8 units Admin: 10/06/16 21:05 Dose: 6 units Admin: 10/06/16 18:17 Dose: 4 units Admin: 10/06/16 11:23 Dose: 4 units Admin: 10/06/16 07:24 Dose: 6 units Admin: 10/05/16 21:22 Dose: 4 units Admin: 10/05/16 17:09 Dose: 2 units Admin: 10/05/16 10:57 Dose: 2 units Lorazepam (Ativan) 0 mg IVPUSH Q4H PRN; Protocol PRN Reason: Anxiety Ondansetron HCl (Zofran) 4 mg IVPUSH Q4H PRN PRN Reason: Nausea Last Admin: 10/06/16 11:51 Dose: 4 mg Admin: 10/05/16 16:52 Dose: 4 mg Admin: 10/05/16 10:53 Dose: 4 mg Admin: 10/05/16 04:32 Dose: 4 mg Rivaroxaban (Xarelto) 10 mg PO DAILY [facility] Sodium Chloride (Saline Flush) 10 ml FLUSH ASDIRECTED PRN PRN Reason: Keep Vein Open Sodium Chloride (Saline Flush) 2.5 ml FLUSH ASDIRECTED PRN PRN Reason: Keep Vein Open - Assessment Assessment (Free Text/Narrative):: Patient awake in bed this AM Pain controlled Tolerating diet VSS Hgb 9.5 UO 2900 mL - Plan Plan (Free Text/Narrative):: Patient has no complaints today Denies chest pain, SOB, abdominal pain or chills Continue pain management Norris out today PT today 1 gram Vancomycin today Start Xarelto 10 mg PO daily for DVT prophylaxis Probable D/C home tomorrow
[2016-10-07] MEDS ORDERED: Magnesium Sulfate/Water 4 GM in Premix Bag 1 BAG IV ONE (07:58)
[2016-10-07] MEDS: Rivaroxaban 10 MG Tab PO SCH (08:32)
[2016-10-07] MEDS: Insulin Glargine,Human Rec. Analog 100 Units/ML 3 ML Pen SUBCUT SCH (08:44)
[2016-10-07] MEDS ORDERED: diphenhydrAMINE 50 MG/ML SDV IVPUSH ONE (08:56)
--- NOTE | 2016-10-07 09:27 | CR ---
EXAMINATION: Right hip HISTORY: Surgery COMPARISON: 10/04/2016 TECHNIQUE: 4 views FINDINGS/IMPRESSION: An intramedullary [place] with interlocking femoral neck component is noted [place] ing an intertrochanteric fracture.
[2016-10-07] MEDS: Pantoprazole 40 MG in Sodium Chloride 0.9% 10 ML IVPUSH SCH ×2 (09:35→21:07)
[2016-10-07] MEDS: Folic Acid/Vitamin B Complex With C Cap PO SCH (09:39)
--- NOTE | 2016-10-07 10:01 | PCM.PN ---
- General Info Date of Service: 10/07/16 Admission Dx/Problem (Free Text): Right hip Fracture IT Subjective Update: Having some right hip pain, trying to eat some this am and "so far so good". No nausea, vomiting, chest pain palpitations. Up to chair this am with assist. Still feeling very tired. No tremors or feelings of withdrawl. Does not want help with alcohol sessation. States "as long as I don't drink I'm fine" and "I just will stop". Functional Status: Reports: pain controlled, tolerating diet, ambulating, urinating - Review of Systems General: Reports: Weakness, Fatigue. Denies: Fever HEENT: Denies: contact lenses, visual changes Pulmonary: Denies: shortness of breath, wheezing Cardiovascular: Denies: Chest Pain, Palpitations, Edema Gastrointestinal: Reports: Nausea. Denies: Abdominal pain, Diarrhea, Vomiting Genitourinary: Denies: dysuria, hematuria Musculoskeletal: Reports: leg pain, joint pain Skin: Denies: cyanosis Neurological: Denies: Confusion, Dizziness Psychiatric: Denies: confusion - Patient Data Vitals - most recent: Last Vital Signs Temp 37.9 C 10/07/16 04:00 Pulse 82 10/06/16 10:35 Resp 9 L 10/07/16 07:00 BP 136/47 L 10/07/16 07:00 Pulse Ox 96 10/07/16 07:00 Weight - most recent: 75 kg I&O - last 24 hours: Intake & Output 10/06/16 10/07/16 10/07/16 22:59 06:59 14:59 Intake Total 1510 1550 250 Output Total 200 2100 Balance 1310 -550 250 Lab Results last 24 hrs: Laboratory Results - last 24 hr 10/06/16 10/06/16 10/06/16 Range/Units 11:21 18:15 21:02 WBC (4.0-11.0) K/uL RBC (4.30-5.90) M/uL Hgb (12.0-16.0) g/dL Hct (36.0-46.0) % MCV (80.0-98.0) fL MCH (27.0-32.0) pg MCHC (31.0-37.0) g/dL RDW Std Deviation (28.0-62.0) fl RDW Coeff of Mahesh (11.0-15.0) % Plt Count (150-400) K/uL MPV (7.40-12.00) fL Neut % (Auto) (48.0-80.0) % Lymph % (Auto) (16.0-40.0) % Roane % (Auto) (0.0-15.0) % Eos % (Auto) (0.0-7.0) % Baso % (Auto) (0.0-1.5) % Neut # (Auto) (1.4-5.7) K/uL Lymph # (Auto) (0.6-2.4) K/uL Roane # (Auto) (0.0-0.8) K/uL Eos # (Auto) (0.0-0.7) K/uL Baso # (Auto) (0.0-0.1) K/uL Nucleated RBC % /100WBC Nucleated RBCs # K/uL Sodium (136-146) mmol/L Potassium (3.5-5.1) mmol/L Chloride (98-110) mmol/L Carbon Dioxide (21-31) mmol/L BUN (6.0-23.0) mg/dL Creatinine (0.6-1.5) mg/dL Est Cr Clr Drug Dosing Estimated GFR (MDRD) ml/min Glucose (60-110) mg/dL POC Glucose 230 H 223 H 278 H (60-110) mg/dL Calcium (8.8-10.8) mg/dL Magnesium (1.5-2.3) mEq/L Total Bilirubin (0.1-1.5) mg/dL AST (5-40) IU/L ALT (8-54) IU/L Alkaline Phosphatase (40-150) Total Protein (6.0-8.0) g/dL Albumin (3.5-5.0) g/dL Globulin (2.0-3.5) g/dL Albumin/Globulin Ratio (1.3-2.8) 10/07/16 10/07/16 10/07/16 Range/Units 05:43 05:43 06:41 WBC 14.82 H (4.0-11.0) K/uL RBC 3.09 L (4.30-5.90) M/uL Hgb 9.5 L (12.0-16.0) g/dL Hct 29.4 L (36.0-46.0) % MCV 95.1 (80.0-98.0) fL MCH 30.7 (27.0-32.0) pg MCHC 32.3 (31.0-37.0) g/dL RDW Std Deviation 44.2 (28.0-62.0) fl RDW Coeff of Mahesh 13 (11.0-15.0) % Plt Count 248 (150-400) K/uL MPV 11.00 (7.40-12.00) fL Neut % (Auto) 80.0 (48.0-80.0) % Lymph % (Auto) 10.0 L (16.0-40.0) % Roane % (Auto) 7.7 (0.0-15.0) % Eos % (Auto) 1.9 (0.0-7.0) % Baso % (Auto) 0.4 (0.0-1.5) % Neut # (Auto) 11.9 H (1.4-5.7) K/uL Lymph # (Auto) 1.5 (0.6-2.4) K/uL Roane # (Auto) 1.1 H (0.0-0.8) K/uL Eos # (Auto) 0.3 (0.0-0.7) K/uL Baso # (Auto) 0.1 (0.0-0.1) K/uL Nucleated RBC % 0.0 /100WBC Nucleated RBCs # 0 K/uL Sodium 137 (136-146) mmol/L Potassium 4.6 (3.5-5.1) mmol/L Chloride 103 (98-110) mmol/L Carbon Dioxide 19 L (21-31) mmol/L BUN 19 (6.0-23.0) mg/dL Creatinine 0.9 (0.6-1.5) mg/dL Est Cr Clr Drug Dosing TNP Estimated GFR (MDRD) > 60.0 ml/min Glucose 353 H (60-110) mg/dL POC Glucose 344 H (60-110) mg/dL Calcium 8.6 L (8.8-10.8) mg/dL Magnesium 1.3 L (1.5-2.3) mEq/L Total Bilirubin 0.6 (0.1-1.5) mg/dL AST 20 (5-40) IU/L ALT 18 (8-54) IU/L Alkaline Phosphatase 91 (40-150) Total Protein 5.6 L (6.0-8.0) g/dL Albumin 3.1 L (3.5-5.0) g/dL Globulin 2.5 (2.0-3.5) g/dL Albumin/Globulin Ratio 1.2 L (1.3-2.8) 10/07/16 Range/Units 08:39 WBC (4.0-11.0) K/uL RBC (4.30-5.90) M/uL Hgb (12.0-16.0) g/dL Hct (36.0-46.0) % MCV (80.0-98.0) fL MCH (27.0-32.0) pg MCHC (31.0-37.0) g/dL RDW Std Deviation (28.0-62.0) fl RDW Coeff of Mahesh (11.0-15.0) % Plt Count (150-400) K/uL MPV (7.40-12.00) fL Neut % (Auto) (48.0-80.0) % Lymph % (Auto) (16.0-40.0) % Roane % (Auto) (0.0-15.0) % Eos % (Auto) (0.0-7.0) % Baso % (Auto) (0.0-1.5) % Neut # (Auto) (1.4-5.7) K/uL Lymph # (Auto) (0.6-2.4) K/uL Roane # (Auto) (0.0-0.8) K/uL Eos # (Auto) (0.0-0.7) K/uL Baso # (Auto) (0.0-0.1) K/uL Nucleated RBC % /100WBC Nucleated RBCs # K/uL Sodium (136-146) mmol/L Potassium (3.5-5.1) mmol/L Chloride (98-110) mmol/L Carbon Dioxide (21-31) mmol/L BUN (6.0-23.0) mg/dL Creatinine (0.6-1.5) mg/dL Est Cr Clr Drug Dosing Estimated GFR (MDRD) ml/min Glucose (60-110) mg/dL POC Glucose 371 H (60-110) mg/dL Calcium (8.8-10.8) mg/dL Magnesium (1.5-2.3) mEq/L Total Bilirubin (0.1-1.5) mg/dL AST (5-40) IU/L ALT (8-54) IU/L Alkaline Phosphatase (40-150) Total Protein (6.0-8.0) g/dL Albumin (3.5-5.0) g/dL Globulin (2.0-3.5) g/dL Albumin/Globulin Ratio (1.3-2.8) Med Orders - Current: Current Medications Acetaminophen (Tylenol Extra Strength) 1,000 mg PO Q6H PRN PRN Reason: Pain Last Admin: 10/06/16 12:05 Dose: 1,000 mg Hydrocodone Bitart/Acetaminophen (Dearing 325-10 Mg) 1 - 2 tab PO Q4H PRN PRN Reason: Pain Last Admin: 10/07/16 05:50 Dose: 2 tab Hydromorphone HCl (Dilaudid) 1 mg IVPUSH Q2H PRN PRN Reason: Pain (severe 7-10) Last Admin: 10/06/16 13:05 Dose: 1 mg Pantoprazole Sodium 40 mg/ (Sodium Chloride) 10 mls @ 300 mls/hr IVPUSH Q12H NILE Last Admin: 10/06/16 21:07 Dose: 300 mls/hr Prochlorperazine Edisylate 5 (mg/ Sodium Chloride) 51 mls @ 150 mls/hr IV Q6H PRN PRN Reason: Nausea/Vomiting Last Admin: 10/07/16 05:55 Dose: 150 mls/hr Magnesium Sulfate 4 gm/ Premix 100 mls @ 50 mls/hr IV ONETIME ONE Stop: 10/07/16 09:57 Last Admin: 10/07/16 08:30 Dose: 50 mls/hr Insulin Aspart (Novolog) 0 unit SUBCUT QIDACANDBED [facility] PRN Reason: Protocol Last Admin: 10/07/16 07:42 Dose: 8 units Insulin Glargine (Lantus Solostar) 30 units SUBCUT DAILY [facility] Last Admin: 10/07/16 08:44 Dose: 30 units Lorazepam (Ativan) 0 mg IVPUSH Q4H PRN; Protocol PRN Reason: Anxiety Multivit/Ca Carb/B Cmplx/FA/Prenat (Renal Caps Softgel) 1 cap PO DAILY [facility] Last Admin: 10/07/16 09:39 Dose: 1 cap Ondansetron HCl (Zofran) 4 mg IVPUSH Q4H PRN PRN Reason: Nausea Last Admin: 10/06/16 11:51 Dose: 4 mg Rivaroxaban (Xarelto) 10 mg PO DAILY NILE Last Admin: 10/07/16 08:32 Dose: 10 mg Sodium Chloride (Saline Flush) 10 ml FLUSH ASDIRECTED PRN PRN Reason: Keep Vein Open Sodium Chloride (Saline Flush) 2.5 ml FLUSH ASDIRECTED PRN PRN Reason: Keep Vein Open Thiamine HCl (Vitamin B-1) 100 mg PO BEDTIME NILE Discontinued Medications Diphenhydramine HCl (Benadryl) 25 mg IVPUSH ONETIME ONE Stop: 10/07/16 08:57 Last Admin: 10/07/16 09:19 Dose: 25 mg Fentanyl (Sublimaze) Confirm Administered Dose 100 mcg .ROUTE .STK-MED ONE Stop: 10/06/16 07:24 Furosemide (Lasix) 40 mg IVPUSH NOW ONE Stop: 10/06/16 21:27 Last Admin: 10/06/16 21:58 Dose: 40 mg Hydromorphone HCl (Dilaudid) 1 mg IVPUSH ONETIME ONE Stop: 10/04/16 23:45 Last Admin: 10/05/16 00:06 Dose: 1 mg Sodium Chloride (Normal Saline) 1,000 mls @ 125 mls/hr IV STAT [facility] Last Infusion: 10/05/16 12:56 Dose: 100 mls/hr Multivitamins/Minerals 10 ml/Thiamine HCl 100 mg/ Folic Acid 1 mg/ Sodium Chloride 1,011.2 mls @ 125 mls/hr IV DAILY ONE Stop: 10/05/16 08:42 Last Admin: 10/05/16 01:24 Dose: 125 mls/hr Vancomycin HCl 1 gm/ Sodium (Chloride) 250 mls @ 167 mls/hr IV ONETIME ONE Stop: 10/06/16 08:29 Last Admin: 10/06/16 07:00 Dose: 167 mls/hr Sodium Chloride (Normal Saline) 1,000 mls @ 100 mls/hr IV ASDIRECTED [facility] Last Admin: 10/06/16 03:14 Dose: 100 mls/hr Pantoprazole Sodium 40 mg/ (Sodium Chloride) 10 mls @ 300 mls/hr IVPUSH NOW ONE Stop: 10/05/16 12:46 Last Admin: 10/05/16 13:18 Dose: 300 mls/hr Vancomycin HCl 1 gm/ Sodium (Chloride) 250 mls @ 166.667 mls/hr IV ONETIME ONE Stop: 10/07/16 08:29 Vancomycin HCl 1 gm/ Sodium (Chloride) 250 mls @ 166.667 mls/hr IV ONETIME ONE Stop: 10/06/16 11:59 Vancomycin HCl 1 gm/ Sodium (Chloride) 250 mls @ 166.667 mls/hr IV ONETIME ONE Stop: 10/07/16 08:29 Last Admin: 10/07/16 06:16 Dose: 166.667 mls/hr Lactated Ringer's (Ringers, Lactated) 1,000 mls @ 125 mls/hr IV ASDIRECTED [facility] Last Admin: 10/06/16 19:02 Dose: 125 mls/hr Prochlorperazine Edisylate 5 (mg/ Sodium Chloride) 51 mls @ 150 mls/hr IV Q6H PRN PRN Reason: Nausea/Vomiting Multivitamins/Minerals 10 ml/Thiamine HCl 100 mg/ Folic Acid 1 mg/ Sodium Chloride 1,011.2 mls @ 100 mls/hr IV ONETIME ONE Stop: 10/07/16 06:49 Last Admin: 10/06/16 21:27 Dose: 100 mls/hr Insulin Aspart (Novolog) 0 unit SUBCUT Q6H [facility] PRN Reason: Protocol Last Admin: 10/05/16 06:47 Dose: Not Given Midazolam HCl (Versed 1 Mg/Ml) Confirm Administered Dose 2 mg .ROUTE .STK-MED ONE Stop: 10/06/16 07:24 Ondansetron HCl (Zofran) 4 mg IVPUSH ONETIME ONE Stop: 10/04/16 23:45 Last Admin: 10/05/16 00:06 Dose: 4 mg Ondansetron HCl (Zofran) Confirm Administered Dose 4 mg .ROUTE .STK-MED ONE Stop: 10/06/16 07:23 Phenylephrine HCl (Ramiro-Synephrine) Confirm Administered Dose 10 mg .ROUTE .STK- MED ONE Stop: 10/06/16 08:42 Propofol (Diprivan 20 Ml) Confirm Administered Dose 1,200 mg .ROUTE .STK-MED ONE Stop: 10/06/16 07:24 Scopolamine (Transderm-Scop) Confirm Administered Dose 1.5 mg .ROUTE .STK-MED ONE Stop: 10/06/16 07:46 - Exam Quality Assessment: supplemental oxygen, DVT prophylaxis General: alert, oriented, cooperative, no acute distress HEENT: Pupils equal, Pupils reactive, EOMI, Mucous membr. moist/pink Neck: supple Lungs: Clear to auscultation, Normal respiratory effort Cardiovascular: Regular Rate, Regular Rhythm Abdomen: bowel sounds present, soft, no tenderness, no distension Back Exam: Normal Inspection, Full Range of Motion Extremities: no edema, normal pulses, no calf tenderness Peripheral Pulses: 2+: Radial (L), Radial (R), Posterior Tibial (L), Posterior Tibial (R), Dorsalis Pedis (L), Dorsalis Pedis (R) Skin: warm, dry, intact Neurological: no new focal deficit Psy/Mental Status: alert, normal affect, normal mood - Problem List & Annotations (1) Alcohol withdrawal SNOMED Code(s): 581488125 Code(s): F10.239 - ALCOHOL DEPENDENCE WITH WITHDRAWAL, UNSPECIFIED Status: Suspected Priority: High Current Visit: Yes Qualifiers: Complication of substance-induced condition: uncomplicated Qualified Code(s ): F10.230 - Alcohol dependence with withdrawal, uncomplicated (2) Diabetes mellitus SNOMED Code(s): 08466667 Code(s): E11.9 - TYPE 2 DIABETES MELLITUS WITHOUT COMPLICATIONS Status: Chronic Priority: Medium Current Visit: Yes Qualifiers: Diabetes mellitus type: type 2 Diabetes mellitus complication status: without complication (3) Intertrochanteric fracture, hip SNOMED Code(s): 833683901 Code(s): S72.143A - DISPLACED INTERTROCHANTERIC FRACTURE OF UNSP FEMUR, INIT Status: Acute Priority: High Current Visit: Yes - Problem List Review Problem List Initiated/Reviewed/Updated: Yes - My Orders Last 24 Hours: My Active Orders 10/07/16 07:58 Magnesium Sulfate/Water [Magnesium Sulfate 4 GM in Water 100 ML] 4 gm Premix Bag 1 bag IV ONETIME 10/07/16 09:00 Insulin Glarg,Human.Rec.Analog [LantUS Solostar] 30 units SUBCUT DAILY 10/07/16 09:15 Folic Acid/Vitamin B Comp W-C [Renal Caps Softgel] 1 cap PO DAILY 10/07/16 21:00 Thiamine [Vitamin B-1] 100 mg PO BEDTIME - Plan Plan:: admit DR Evans already notified check chemistries check alcohol level banana bag monitor in ICU ativan prn per CIWA scale Will check PT/ INR; She should have an acceptable surgical risk but I recommend waiting at least until am. will check EKG. I recommend observation in the ICU post operatively as she may be at high risk for alcohol withdrawl complications. She is evasive regarding her alcohol history and we do not know what her alcohol intake might be. Thierno Yancey MD 10/05/2016 monitor blood sugars. she has not had signs or symptoms of alcohol withdrawl according to nursing staff. I read Dr Evans's consult anticipate ORIF tomorrow. symptomatic treatement of nausea Thierno yancey MD 10/06/16 I think that she is showing signs of alcohol withdrawl. ativan by CIWA protocol is ordered. continued sliding scale insulin for now. on protonix IV for stress ulcer/gastritis prophylaxis in light of likely alcoholism Thierno Yancey MD 10/07/16 56 yo female with acute right hip fracture IT sp fixation with pmh of alcohol abues, htn, diabetes, and depression. Right hip fx IT: Repaired 10/07/16 as per ortho ready for discharge once medically stable. Pain controlled. Home care plan in place and patient has help at home. ETOH abuse: CIWA 0-3 this am no signs of withdrawl at this time. Patient does not want help with cessation. Thiamine and Folate. Will transfer to floor. Diabetes: High sugars 344 this am will start home lantus 30 units this am. Htn: Controlled on home meds. Dispo: tomorrow pending.
--- NOTE | 2016-10-07 10:14 | CR ---
EXAM DATE: 10/04/16 PATIENT'S AGE: 56 Patient: АННА LR Facility: [place], [place] Site . Site : 1960 Study: XRay Pelvis Right HIP [id number]/23/2017 11:37:35 PM Ordering Physician: Fernanda Mccray Final Report: INDICATION: FELL, RIGHT HIP PAIN TECHNIQUE: AP view of the bony pelvis and two views of the right hip COMPARISON: None FINDINGS: Bones: Comminuted right intertrochanteric femoral neck fracture with involvement of the greater and lesser trochanters. Joint spaces: Degenerative changes. Soft tissues: Atherosclerotic disease. IMPRESSION: Comminuted right intertrochanteric femoral neck fracture with involvement of the greater and lesser trochanters. Dictated by Moo Ojeda MD @ 10/04/2016 11:41:38 PM Dictated by: Moo Ojeda MD @ 10/04/2016 23:41:45 (Electronic Signature) Report Signed by Proxy. MARGARITA
--- NOTE | 2016-10-07 10:15 | CR ---
EXAM DATE: 10/04/16 PATIENT'S AGE: 56 Patient: АННА LR Facility: [place], [place] Site . Site : 1960 Study: XRay Chest [id number]/24/2017 12:03:49 AM Ordering Physician: Fernanda Mccray Final Report: INDICATION: PREOP TECHNIQUE: Chest 1 view COMPARISON: None FINDINGS: Cardiovascular and mediastinum: Heart size and vasculature are normal in caliber and appearance. Mediastinum is within normal limits. Lungs and pleural space: No focal consolidation. No sign of pleural effusion. No pneumothorax. Bones and soft tissues: Healing right 8th anterior rib fracture. IMPRESSION: 1. No acute cardiopulmonary disease. 2. Healing right 8th anterior rib fracture. Dictated by Moo Ojeda MD @ 10/05/2016 12:06:15 AM Dictated by: Moo Ojeda MD @ 10/05/2016 00:06:44 (Electronic Signature) Report Signed by Proxy. MARGARITA
[2016-10-07] MEDS ORDERED: Insulin Regular, Human 100 Units/ML 10 ML Vial IVPUSH ONE (12:09)
[2016-10-07] MEDS ORDERED: Insulin Aspart 100 Units/ML 3 ML Pen SUBCUT ONE (12:10)
[2016-10-07] MEDS: Thiamine 100 MG Tab PO SCH (21:07)
[2016-10-08] MEDS: Acetaminophen/HYDROcodone 325-10 MG Tab PO PRN ×3 (01:52→17:17)
[2016-10-08] MEDS ORDERED: Sodium Chloride 0.9% 500 ML IV ONE (03:34)
[2016-10-08] MEDS ORDERED: Sodium Chloride 0.9% 1,000 ML IV SCH (03:45)
[2016-10-08] MEDS: HYDROmorphone 1 MG/ML Syringe IVPUSH PRN ×2 (04:53→11:58)
[2016-10-08] MEDS: Sodium Chloride 0.9% 1,000 ML IV SCH ×2 (05:29→16:59)
[2016-10-08] MEDS: Insulin Aspart 100 Units/ML 3 ML Pen SUBCUT SCH ×4 (07:27→21:35)
--- NOTE | 2016-10-08 08:21 | PCM.SURGPN ---
- General Info Date of Service: 10/08/16 Date of Surgery/Procedure: 10/06/16 POD#: 2 Functional Status: Reports: pain controlled, tolerating diet, ambulating. Denies: urinating - Review of Systems General: Reports: No Symptoms Pulmonary: Reports: no symptoms Cardiovascular: Reports: No Symptoms Gastrointestinal: Reports: No symptoms Genitourinary: Reports: retention. Denies: dysuria, burning Musculoskeletal: Reports: leg pain, joint pain, joint swelling Neurological: Reports: No Symptoms Psychiatric: Reports: no symptoms - Patient Data Vitals - most recent: Last Vital Signs Temp 37.5 C 10/08/16 04:00 Pulse 96 10/08/16 04:00 Resp 19 10/08/16 04:00 BP 141/62 H 10/08/16 04:00 Pulse Ox 94 L 10/08/16 04:00 Weight - most recent: 75 kg I&O - last 24 hours: Intake & Output 10/07/16 10/08/16 10/08/16 22:59 06:59 14:59 Intake Total 2200 500 Output Total 0 Balance 2200 500 Lab Results last 24 hrs: Laboratory Results - last 24 hr 10/07/16 10/07/16 10/07/16 Range/Units 08:39 12:00 16:28 WBC (4.0-11.0) K/uL RBC (4.30-5.90) M/uL Hgb (12.0-16.0) g/dL Hct (36.0-46.0) % MCV (80.0-98.0) fL MCH (27.0-32.0) pg MCHC (31.0-37.0) g/dL RDW Std Deviation (28.0-62.0) fl RDW Coeff of Mahesh (11.0-15.0) % Plt Count (150-400) K/uL MPV (7.40-12.00) fL Neut % (Auto) (48.0-80.0) % Lymph % (Auto) (16.0-40.0) % Kinney % (Auto) (0.0-15.0) % Eos % (Auto) (0.0-7.0) % Baso % (Auto) (0.0-1.5) % Neut # (Auto) (1.4-5.7) K/uL Lymph # (Auto) (0.6-2.4) K/uL Kinney # (Auto) (0.0-0.8) K/uL Eos # (Auto) (0.0-0.7) K/uL Baso # (Auto) (0.0-0.1) K/uL Nucleated RBC % /100WBC Nucleated RBCs # K/uL Sodium (136-146) mmol/L Potassium (3.5-5.1) mmol/L Chloride (98-110) mmol/L Carbon Dioxide (21-31) mmol/L BUN (6.0-23.0) mg/dL Creatinine (0.6-1.5) mg/dL Est Cr Clr Drug Dosing mL/min Estimated GFR (MDRD) ml/min Glucose (60-110) mg/dL POC Glucose 371 H 431 H 379 H (60-110) mg/dL Calcium (8.8-10.8) mg/dL Magnesium (1.5-2.3) mEq/L Total Bilirubin (0.1-1.5) mg/dL AST (5-40) IU/L ALT (8-54) IU/L Alkaline Phosphatase (40-150) Total Protein (6.0-8.0) g/dL Albumin (3.5-5.0) g/dL Globulin (2.0-3.5) g/dL Albumin/Globulin Ratio (1.3-2.8) 10/07/16 10/08/16 10/08/16 Range/Units 21:09 04:18 05:24 WBC 16.98 H (4.0-11.0) K/uL RBC 2.90 L (4.30-5.90) M/uL Hgb 8.8 L (12.0-16.0) g/dL Hct 26.8 L (36.0-46.0) % MCV 92.4 (80.0-98.0) fL MCH 30.3 (27.0-32.0) pg MCHC 32.8 (31.0-37.0) g/dL RDW Std Deviation 42.5 (28.0-62.0) fl RDW Coeff of Mahesh 13 (11.0-15.0) % Plt Count 250 (150-400) K/uL MPV 11.50 (7.40-12.00) fL Neut % (Auto) 81.8 H (48.0-80.0) % Lymph % (Auto) 9.2 L (16.0-40.0) % Kinney % (Auto) 8.4 (0.0-15.0) % Eos % (Auto) 0.4 (0.0-7.0) % Baso % (Auto) 0.2 (0.0-1.5) % Neut # (Auto) 13.9 H (1.4-5.7) K/uL Lymph # (Auto) 1.6 (0.6-2.4) K/uL Kinney # (Auto) 1.4 H (0.0-0.8) K/uL Eos # (Auto) 0.1 (0.0-0.7) K/uL Baso # (Auto) 0.0 (0.0-0.1) K/uL Nucleated RBC % 0.0 /100WBC Nucleated RBCs # 0 K/uL Sodium 130 L (136-146) mmol/L Potassium 4.8 (3.5-5.1) mmol/L Chloride 100 (98-110) mmol/L Carbon Dioxide 21 (21-31) mmol/L BUN 28 H (6.0-23.0) mg/dL Creatinine 1.1 (0.6-1.5) mg/dL Est Cr Clr Drug Dosing 58.52 mL/min Estimated GFR (MDRD) 51.6 ml/min Glucose 289 H (60-110) mg/dL POC Glucose 351 H (60-110) mg/dL Calcium 7.9 L (8.8-10.8) mg/dL Magnesium 1.8 (1.5-2.3) mEq/L Total Bilirubin 0.5 (0.1-1.5) mg/dL AST 24 (5-40) IU/L ALT 21 (8-54) IU/L Alkaline Phosphatase 82 (40-150) Total Protein 4.8 L (6.0-8.0) g/dL Albumin 2.9 L (3.5-5.0) g/dL Globulin 1.9 L (2.0-3.5) g/dL Albumin/Globulin Ratio 1.5 (1.3-2.8) 10/08/16 Range/Units 05:44 WBC (4.0-11.0) K/uL RBC (4.30-5.90) M/uL Hgb (12.0-16.0) g/dL Hct (36.0-46.0) % MCV (80.0-98.0) fL MCH (27.0-32.0) pg MCHC (31.0-37.0) g/dL RDW Std Deviation (28.0-62.0) fl RDW Coeff of Mahesh (11.0-15.0) % Plt Count (150-400) K/uL MPV (7.40-12.00) fL Neut % (Auto) (48.0-80.0) % Lymph % (Auto) (16.0-40.0) % Kinney % (Auto) (0.0-15.0) % Eos % (Auto) (0.0-7.0) % Baso % (Auto) (0.0-1.5) % Neut # (Auto) (1.4-5.7) K/uL Lymph # (Auto) (0.6-2.4) K/uL Kinney # (Auto) (0.0-0.8) K/uL Eos # (Auto) (0.0-0.7) K/uL Baso # (Auto) (0.0-0.1) K/uL Nucleated RBC % /100WBC Nucleated RBCs # K/uL Sodium (136-146) mmol/L Potassium (3.5-5.1) mmol/L Chloride (98-110) mmol/L Carbon Dioxide (21-31) mmol/L BUN (6.0-23.0) mg/dL Creatinine (0.6-1.5) mg/dL Est Cr Clr Drug Dosing mL/min Estimated GFR (MDRD) ml/min Glucose (60-110) mg/dL POC Glucose 286 H (60-110) mg/dL Calcium (8.8-10.8) mg/dL Magnesium (1.5-2.3) mEq/L Total Bilirubin (0.1-1.5) mg/dL AST (5-40) IU/L ALT (8-54) IU/L Alkaline Phosphatase (40-150) Total Protein (6.0-8.0) g/dL Albumin (3.5-5.0) g/dL Globulin (2.0-3.5) g/dL Albumin/Globulin Ratio (1.3-2.8) Med Orders - Current: Current Medications Acetaminophen (Tylenol Extra Strength) 1,000 mg PO Q6H PRN PRN Reason: Pain Last Admin: 10/06/16 12:05 Dose: 1,000 mg Hydrocodone Bitart/Acetaminophen (Estill 325-10 Mg) 1 - 2 tab PO Q4H PRN PRN Reason: Pain Last Admin: 10/08/16 01:52 Dose: 2 tab Hydromorphone HCl (Dilaudid) 1 mg IVPUSH Q2H PRN PRN Reason: Pain (severe 7-10) Last Admin: 10/08/16 04:53 Dose: 1 mg Pantoprazole Sodium 40 mg/ (Sodium Chloride) 10 mls @ 300 mls/hr IVPUSH Q12H [facility] Last Admin: 10/07/16 21:07 Dose: 300 mls/hr Prochlorperazine Edisylate 5 (mg/ Sodium Chloride) 51 mls @ 150 mls/hr IV Q6H PRN PRN Reason: Nausea/Vomiting Last Admin: 10/07/16 05:55 Dose: 150 mls/hr Sodium Chloride (Normal Saline) 1,000 mls @ 125 mls/hr IV ASDIRECTED [facility] Last Admin: 10/08/16 05:29 Dose: 125 mls/hr Insulin Aspart (Novolog) 0 unit SUBCUT QIDACANDBED [facility] PRN Reason: Protocol Last Admin: 10/08/16 07:27 Dose: 6 units Insulin Glargine (Lantus Solostar) 30 units SUBCUT DAILY [facility] Last Admin: 10/07/16 08:44 Dose: 30 units Lorazepam (Ativan) 0 mg IVPUSH Q4H PRN; Protocol PRN Reason: Anxiety Multivit/Ca Carb/B Cmplx/FA/Prenat (Renal Caps Softgel) 1 cap PO DAILY [facility] Last Admin: 10/07/16 09:39 Dose: 1 cap Ondansetron HCl (Zofran) 4 mg IVPUSH Q4H PRN PRN Reason: Nausea Last Admin: 10/06/16 11:51 Dose: 4 mg Rivaroxaban (Xarelto) 10 mg PO DAILY [facility] Last Admin: 10/07/16 08:32 Dose: 10 mg Sodium Chloride (Saline Flush) 10 ml FLUSH ASDIRECTED PRN PRN Reason: Keep Vein Open Sodium Chloride (Saline Flush) 2.5 ml FLUSH ASDIRECTED PRN PRN Reason: Keep Vein Open Thiamine HCl (Vitamin B-1) 100 mg PO BEDTIME [facility] Last Admin: 10/07/16 21:07 Dose: 100 mg Discontinued Medications Diphenhydramine HCl (Benadryl) 25 mg IVPUSH ONETIME ONE Stop: 10/07/16 08:57 Last Admin: 10/07/16 09:19 Dose: 25 mg Fentanyl (Sublimaze) Confirm Administered Dose 100 mcg .ROUTE .STK-MED ONE Stop: 10/06/16 07:24 Furosemide (Lasix) 40 mg IVPUSH NOW ONE Stop: 10/06/16 21:27 Last Admin: 10/06/16 21:58 Dose: 40 mg Hydromorphone HCl (Dilaudid) 1 mg IVPUSH ONETIME ONE Stop: 10/04/16 23:45 Last Admin: 10/05/16 00:06 Dose: 1 mg Sodium Chloride (Normal Saline) 1,000 mls @ 125 mls/hr IV STAT [facility] Last Infusion: 10/05/16 12:56 Dose: 100 mls/hr Multivitamins/Minerals 10 ml/Thiamine HCl 100 mg/ Folic Acid 1 mg/ Sodium Chloride 1,011.2 mls @ 125 mls/hr IV DAILY ONE Stop: 10/05/16 08:42 Last Admin: 10/05/16 01:24 Dose: 125 mls/hr Vancomycin HCl 1 gm/ Sodium (Chloride) 250 mls @ 167 mls/hr IV ONETIME ONE Stop: 10/06/16 08:29 Last Admin: 10/06/16 07:00 Dose: 167 mls/hr Sodium Chloride (Normal Saline) 1,000 mls @ 100 mls/hr IV ASDIRECTED [facility] Last Admin: 10/06/16 03:14 Dose: 100 mls/hr Pantoprazole Sodium 40 mg/ (Sodium Chloride) 10 mls @ 300 mls/hr IVPUSH NOW ONE Stop: 10/05/16 12:46 Last Admin: 10/05/16 13:18 Dose: 300 mls/hr Vancomycin HCl 1 gm/ Sodium (Chloride) 250 mls @ 166.667 mls/hr IV ONETIME ONE Stop: 10/07/16 08:29 Vancomycin HCl 1 gm/ Sodium (Chloride) 250 mls @ 166.667 mls/hr IV ONETIME ONE Stop: 10/06/16 11:59 Vancomycin HCl 1 gm/ Sodium (Chloride) 250 mls @ 166.667 mls/hr IV ONETIME ONE Stop: 10/07/16 08:29 Last Admin: 10/07/16 06:16 Dose: 166.667 mls/hr Lactated Ringer's (Ringers, Lactated) 1,000 mls @ 125 mls/hr IV ASDIRECTED [facility] Last Admin: 10/06/16 19:02 Dose: 125 mls/hr Prochlorperazine Edisylate 5 (mg/ Sodium Chloride) 51 mls @ 150 mls/hr IV Q6H PRN PRN Reason: Nausea/Vomiting Multivitamins/Minerals 10 ml/Thiamine HCl 100 mg/ Folic Acid 1 mg/ Sodium Chloride 1,011.2 mls @ 100 mls/hr IV ONETIME ONE Stop: 10/07/16 06:49 Last Admin: 10/06/16 21:27 Dose: 100 mls/hr Magnesium Sulfate 4 gm/ Premix 100 mls @ 50 mls/hr IV ONETIME ONE Stop: 10/07/16 09:57 Last Admin: 10/07/16 08:30 Dose: 50 mls/hr Sodium Chloride (Normal Saline) 500 mls @ 500 mls/hr IV .BOLUS ONE Stop: 10/08/16 04:33 Last Admin: 10/08/16 04:03 Dose: 500 mls/hr Sodium Chloride (Normal Saline) 1,000 mls @ 125 mls/hr IV ASDIRECTED [facility] Insulin Aspart (Novolog) 0 unit SUBCUT Q6H [facility] PRN Reason: Protocol Last Admin: 10/05/16 06:47 Dose: Not Given Insulin Aspart (Novolog) 10 unit SUBCUT NOW ONE Stop: 10/07/16 12:11 Last Admin: 10/07/16 12:41 Dose: Not Given Insulin Human Regular (Novolin R) 10 unit IVPUSH ONETIME ONE PRN Reason: Protocol Stop: 10/07/16 12:10 Last Admin: 10/07/16 12:43 Dose: 10 units Midazolam HCl (Versed 1 Mg/Ml) Confirm Administered Dose 2 mg .ROUTE .STK-MED ONE Stop: 10/06/16 07:24 Ondansetron HCl (Zofran) 4 mg IVPUSH ONETIME ONE Stop: 10/04/16 23:45 Last Admin: 10/05/16 00:06 Dose: 4 mg Ondansetron HCl (Zofran) Confirm Administered Dose 4 mg .ROUTE .STK-MED ONE Stop: 10/06/16 07:23 Phenylephrine HCl (Ramiro-Synephrine) Confirm Administered Dose 10 mg .ROUTE .STK- MED ONE Stop: 10/06/16 08:42 Propofol (Diprivan 20 Ml) Confirm Administered Dose 1,200 mg .ROUTE .STK-MED ONE Stop: 10/06/16 07:24 Scopolamine (Transderm-Scop) Confirm Administered Dose 1.5 mg .ROUTE .STK-MED ONE Stop: 10/06/16 07:46 - Exam Wound/Incisions: dressing dry and intact (Dressing changed today.) Quality Assessment: supplemental oxygen General: alert, oriented HEENT: Pupils equal, Pupils reactive Neck: trachea midline Lungs: Normal respiratory effort Cardiovascular: Regular Rate Abdomen: no distension Extremities: other (Right anterior tibialis, extensor hallucis longus and gastrocnemius strength +5/5 bilaterally. Sensation intact. Dorsalis pedis and posterior tibial pulses +2 bilaterally. ) Neurological: no new focal deficit Psy/Mental Status: alert, normal affect, normal mood - Problem List Review Problem List Initiated/Reviewed/Updated: Yes - My Orders Last 24 Hours: Active Orders 24 hr Category Date Time Status Transfer Patient (Change bed) [ADT] Routine ADT 10/07/16 09:42 Ordered Blood Glucose Check, Bedside [RC] QIDACANDBED Care 10/07/16 21:00 Active Communication Order [RC] ROUTINE Care 10/07/16 18:18 Active Dressing Change [Wound Care] [RC] ASDIRECTED Care 10/08/16 08:14 Active CBC WITH AUTO DIFF [HEME] AM Lab 10/09/16 05:11 Ordered CMP [COMPREHENSIVE METABOLIC PN,CMP] [CHEM] AM Lab 10/09/16 05:11 Ordered MAGNESIUM [CHEM] AM Lab 10/09/16 05:11 Ordered Folic Acid/Vitamin B Comp W-C [Renal Caps Softgel] Med 10/07/16 09:15 Active 1 cap PO DAILY Insulin Glarg,Human.Rec.Analog [LantUS Solostar] Med 10/07/16 09:00 Active 30 units SUBCUT DAILY Rivaroxaban [Xarelto] Med 10/07/16 09:00 Active 10 mg PO DAILY Sodium Chloride 0.9% [Normal Saline] 1,000 ml Med 10/08/16 05:00 Active IV ASDIRECTED Thiamine [Vitamin B-1] Med 10/07/16 21:00 Active 100 mg PO BEDTIME Medication Orders Acetaminophen (Tylenol Extra Strength) 1,000 mg PO Q6H PRN PRN Reason: Pain Last Admin: 10/06/16 12:05 Dose: 1,000 mg Admin: 10/05/16 13:38 Dose: 1,000 mg Hydrocodone Bitart/Acetaminophen (Estill 325-10 Mg) 1 - 2 tab PO Q4H PRN PRN Reason: Pain Last Admin: 10/08/16 01:52 Dose: 2 tab Admin: 10/07/16 15:18 Dose: 2 tab Admin: 10/07/16 10:12 Dose: 2 tab Admin: 10/07/16 05:50 Dose: 2 tab Admin: 10/06/16 20:59 Dose: 2 tab Admin: 10/06/16 14:17 Dose: 2 tab Hydromorphone HCl (Dilaudid) 1 mg IVPUSH Q2H PRN PRN Reason: Pain (severe 7-10) Last Admin: 10/08/16 04:53 Dose: 1 mg Admin: 10/06/16 13:05 Dose: 1 mg Admin: 10/06/16 06:07 Dose: 1 mg Admin: 10/06/16 02:32 Dose: 1 mg Admin: 10/05/16 21:35 Dose: 1 mg Admin: 10/05/16 13:48 Dose: 1 mg Admin: 10/05/16 10:33 Dose: 1 mg Admin: 10/05/16 04:22 Dose: 1 mg Admin: 10/05/16 02:21 Dose: 1 mg Pantoprazole Sodium 40 mg/ (Sodium Chloride) 10 mls @ 300 mls/hr IVPUSH Q12H [facility] Last Admin: 10/07/16 21:07 Dose: 300 mls/hr Infusion: 10/07/16 09:37 Dose: 300 mls/hr Admin: 10/07/16 09:35 Dose: 300 mls/hr Infusion: 10/06/16 21:09 Dose: 300 mls/hr Admin: 10/06/16 21:07 Dose: 300 mls/hr Infusion: 10/06/16 10:51 Dose: 300 mls/hr Admin: 10/06/16 10:49 Dose: 300 mls/hr Infusion: 10/05/16 21:25 Dose: 300 mls/hr Admin: 10/05/16 21:23 Dose: 300 mls/hr Prochlorperazine Edisylate 5 (mg/ Sodium Chloride) 51 mls @ 150 mls/hr IV Q6H PRN PRN Reason: Nausea/Vomiting Last Admin: 10/07/16 05:55 Dose: 150 mls/hr Infusion: 10/06/16 14:18 Dose: 150 mls/hr Admin: 10/06/16 13:57 Dose: 150 mls/hr Sodium Chloride (Normal Saline) 1,000 mls @ 125 mls/hr IV ASDIRECTED [facility] Last Admin: 10/08/16 05:29 Dose: 125 mls/hr Insulin Aspart (Novolog) 0 unit SUBCUT QIDACANDBED [facility] PRN Reason: Protocol Last Admin: 10/08/16 07:27 Dose: 6 units Admin: 10/07/16 21:09 Dose: 10 units Admin: 10/07/16 17:04 Dose: 10 units Admin: 10/07/16 12:11 Dose: 10 units Admin: 10/07/16 07:42 Dose: 8 units Admin: 10/06/16 21:05 Dose: 6 units Admin: 10/06/16 18:17 Dose: 4 units Admin: 10/06/16 11:23 Dose: 4 units Admin: 10/06/16 07:24 Dose: 6 units Admin: 10/05/16 21:22 Dose: 4 units Admin: 10/05/16 17:09 Dose: 2 units Admin: 10/05/16 10:57 Dose: 2 units Insulin Glargine (Lantus Solostar) 30 units SUBCUT DAILY [facility] Last Admin: 10/07/16 08:44 Dose: 30 units Lorazepam (Ativan) 0 mg IVPUSH Q4H PRN; Protocol PRN Reason: Anxiety Multivit/Ca Carb/B Cmplx/FA/Prenat (Renal Caps Softgel) 1 cap PO DAILY [facility] Last Admin: 10/07/16 09:39 Dose: 1 cap Ondansetron HCl (Zofran) 4 mg IVPUSH Q4H PRN PRN Reason: Nausea Last Admin: 10/06/16 11:51 Dose: 4 mg Admin: 10/05/16 16:52 Dose: 4 mg Admin: 10/05/16 10:53 Dose: 4 mg Admin: 10/05/16 04:32 Dose: 4 mg Rivaroxaban (Xarelto) 10 mg PO DAILY [facility] Last Admin: 10/07/16 08:32 Dose: 10 mg Sodium Chloride (Saline Flush) 10 ml FLUSH ASDIRECTED PRN PRN Reason: Keep Vein Open Sodium Chloride (Saline Flush) 2.5 ml FLUSH ASDIRECTED PRN PRN Reason: Keep Vein Open Thiamine HCl (Vitamin B-1) 100 mg PO BEDTIME [facility] Last Admin: 10/07/16 21:07 Dose: 100 mg - Assessment Assessment (Free Text/Narrative):: Patient up to chair this AM. Pain controlled. Tolerating diet. Bo removed yesterday, patient unable to void independently. Straight cath followed by bo. Supplemental oxygen via nasal cannula. Patient denies SOB, chest pain, abdominal pain or chills. Hgb 8.8 UO 400 mL this AM - Plan Plan (Free Text/Narrative):: Continue pain management. Continue PT. Dressing changed today. D/C home this afternoon if patient able to void.
[2016-10-08] MEDS ORDERED: diphenhydrAMINE 25 MG Cap PO PRN (08:45)
[2016-10-08] MEDS: Rivaroxaban 10 MG Tab PO SCH (08:48)
[2016-10-08] MEDS: Folic Acid/Vitamin B Complex With C Cap PO SCH (08:49)
[2016-10-08] MEDS: Insulin Glargine,Human Rec. Analog 100 Units/ML 3 ML Pen SUBCUT SCH (08:49)
[2016-10-08] MEDS: Pantoprazole 40 MG in Sodium Chloride 0.9% 10 ML IVPUSH SCH ×2 (10:19→21:51)
[2016-10-08] MEDS: Levofloxacin/Dextrose 5%-Water 750 MG in Premix Bag 1 BAG IV SCH (10:20)
--- NOTE | 2016-10-08 10:58 | PCM.PN ---
- General Info Date of Service: 10/08/16 Admission Dx/Problem (Free Text): Right hip Fracture Subjective Update: Feeling fair this morning, itching alot to her R hip. Feels dyspneic at times. No fevers, but not feeling well today. No Chest pain or palpitations. Norris was replaced last night due to not being able to void. Functional Status: Reports: pain controlled, tolerating diet, ambulating - Review of Systems General: Reports: Fatigue, Malaise. Denies: Fever HEENT: Reports: no symptoms. Denies: sore throat Pulmonary: Reports: no symptoms. Denies: shortness of breath, cough, sputum Cardiovascular: Reports: No Symptoms. Denies: Chest Pain, Palpitations, Edema Gastrointestinal: Reports: No symptoms. Denies: Abdominal pain, Nausea, Vomiting Genitourinary: Reports: retention Musculoskeletal: Reports: leg pain (R hip pain) Neurological: Reports: No Symptoms Psychiatric: Reports: no symptoms - Patient Data Vitals - most recent: Last Vital Signs Temp 97.6 F 10/08/16 08:00 Pulse 88 10/08/16 08:00 Resp 16 10/08/16 08:00 BP 117/58 L 10/08/16 08:00 Pulse Ox 96 10/08/16 08:00 Weight - most recent: 75 kg I&O - last 24 hours: Intake & Output 10/07/16 10/08/16 10/08/16 22:59 06:59 14:59 Intake Total 2200 1560 Output Total 0 450 Balance 2200 1110 Lab Results last 24 hrs: Laboratory Results - last 24 hr 10/07/16 10/07/16 10/07/16 Range/Units 12:00 16:28 21:09 WBC (4.0-11.0) K/uL RBC (4.30-5.90) M/uL Hgb (12.0-16.0) g/dL Hct (36.0-46.0) % MCV (80.0-98.0) fL MCH (27.0-32.0) pg MCHC (31.0-37.0) g/dL RDW Std Deviation (28.0-62.0) fl RDW Coeff of Mahesh (11.0-15.0) % Plt Count (150-400) K/uL MPV (7.40-12.00) fL Neut % (Auto) (48.0-80.0) % Lymph % (Auto) (16.0-40.0) % Franklin % (Auto) (0.0-15.0) % Eos % (Auto) (0.0-7.0) % Baso % (Auto) (0.0-1.5) % Neut # (Auto) (1.4-5.7) K/uL Lymph # (Auto) (0.6-2.4) K/uL Franklin # (Auto) (0.0-0.8) K/uL Eos # (Auto) (0.0-0.7) K/uL Baso # (Auto) (0.0-0.1) K/uL Nucleated RBC % /100WBC Nucleated RBCs # K/uL Sodium (136-146) mmol/L Potassium (3.5-5.1) mmol/L Chloride (98-110) mmol/L Carbon Dioxide (21-31) mmol/L BUN (6.0-23.0) mg/dL Creatinine (0.6-1.5) mg/dL Est Cr Clr Drug Dosing mL/min Estimated GFR (MDRD) ml/min Glucose (60-110) mg/dL POC Glucose 431 H 379 H 351 H (60-110) mg/dL Calcium (8.8-10.8) mg/dL Magnesium (1.5-2.3) mEq/L Total Bilirubin (0.1-1.5) mg/dL AST (5-40) IU/L ALT (8-54) IU/L Alkaline Phosphatase (40-150) Total Protein (6.0-8.0) g/dL Albumin (3.5-5.0) g/dL Globulin (2.0-3.5) g/dL Albumin/Globulin Ratio (1.3-2.8) Urine Color Urine Appearance Urine pH (5.0-8.0) Ur Specific [place] (1.001-1.035) Urine Protein (NEGATIVE) mg/dL Urine Glucose (UA) (NEGATIVE) mg/dL Urine Ketones (NEGATIVE) mg/dL Urine Occult Blood (NEGATIVE) Urine Nitrite (NEGATIVE) Urine Bilirubin (NEGATIVE) Urine Urobilinogen (<2.0) EU/dL Ur Leukocyte Esterase (NEGATIVE) Urine RBC (0-2/HPF) Urine WBC (0-5/HPF) Ur Epithelial Cells (NONE-FEW) Urine Bacteria (NEGATIVE) 10/08/16 10/08/16 10/08/16 Range/Units 04:18 05:24 05:44 WBC 16.98 H (4.0-11.0) K/uL RBC 2.90 L (4.30-5.90) M/uL Hgb 8.8 L (12.0-16.0) g/dL Hct 26.8 L (36.0-46.0) % MCV 92.4 (80.0-98.0) fL MCH 30.3 (27.0-32.0) pg MCHC 32.8 (31.0-37.0) g/dL RDW Std Deviation 42.5 (28.0-62.0) fl RDW Coeff of Mahesh 13 (11.0-15.0) % Plt Count 250 (150-400) K/uL MPV 11.50 (7.40-12.00) fL Neut % (Auto) 81.8 H (48.0-80.0) % Lymph % (Auto) 9.2 L (16.0-40.0) % Franklin % (Auto) 8.4 (0.0-15.0) % Eos % (Auto) 0.4 (0.0-7.0) % Baso % (Auto) 0.2 (0.0-1.5) % Neut # (Auto) 13.9 H (1.4-5.7) K/uL Lymph # (Auto) 1.6 (0.6-2.4) K/uL Franklin # (Auto) 1.4 H (0.0-0.8) K/uL Eos # (Auto) 0.1 (0.0-0.7) K/uL Baso # (Auto) 0.0 (0.0-0.1) K/uL Nucleated RBC % 0.0 /100WBC Nucleated RBCs # 0 K/uL Sodium 130 L (136-146) mmol/L Potassium 4.8 (3.5-5.1) mmol/L Chloride 100 (98-110) mmol/L Carbon Dioxide 21 (21-31) mmol/L BUN 28 H (6.0-23.0) mg/dL Creatinine 1.1 (0.6-1.5) mg/dL Est Cr Clr Drug Dosing 58.52 mL/min Estimated GFR (MDRD) 51.6 ml/min Glucose 289 H (60-110) mg/dL POC Glucose 286 H (60-110) mg/dL Calcium 7.9 L (8.8-10.8) mg/dL Magnesium 1.8 (1.5-2.3) mEq/L Total Bilirubin 0.5 (0.1-1.5) mg/dL AST 24 (5-40) IU/L ALT 21 (8-54) IU/L Alkaline Phosphatase 82 (40-150) Total Protein 4.8 L (6.0-8.0) g/dL Albumin 2.9 L (3.5-5.0) g/dL Globulin 1.9 L (2.0-3.5) g/dL Albumin/Globulin Ratio 1.5 (1.3-2.8) Urine Color Urine Appearance Urine pH (5.0-8.0) Ur Specific [place] (1.001-1.035) Urine Protein (NEGATIVE) mg/dL Urine Glucose (UA) (NEGATIVE) mg/dL Urine Ketones (NEGATIVE) mg/dL Urine Occult Blood (NEGATIVE) Urine Nitrite (NEGATIVE) Urine Bilirubin (NEGATIVE) Urine Urobilinogen (<2.0) EU/dL Ur Leukocyte Esterase (NEGATIVE) Urine RBC (0-2/HPF) Urine WBC (0-5/HPF) Ur Epithelial Cells (NONE-FEW) Urine Bacteria (NEGATIVE) 10/08/16 Range/Units 09:00 WBC (4.0-11.0) K/uL RBC (4.30-5.90) M/uL Hgb (12.0-16.0) g/dL Hct (36.0-46.0) % MCV (80.0-98.0) fL MCH (27.0-32.0) pg MCHC (31.0-37.0) g/dL RDW Std Deviation (28.0-62.0) fl RDW Coeff of Mahesh (11.0-15.0) % Plt Count (150-400) K/uL MPV (7.40-12.00) fL Neut % (Auto) (48.0-80.0) % Lymph % (Auto) (16.0-40.0) % Franklin % (Auto) (0.0-15.0) % Eos % (Auto) (0.0-7.0) % Baso % (Auto) (0.0-1.5) % Neut # (Auto) (1.4-5.7) K/uL Lymph # (Auto) (0.6-2.4) K/uL Franklin # (Auto) (0.0-0.8) K/uL Eos # (Auto) (0.0-0.7) K/uL Baso # (Auto) (0.0-0.1) K/uL Nucleated RBC % /100WBC Nucleated RBCs # K/uL Sodium (136-146) mmol/L Potassium (3.5-5.1) mmol/L Chloride (98-110) mmol/L Carbon Dioxide (21-31) mmol/L BUN (6.0-23.0) mg/dL Creatinine (0.6-1.5) mg/dL Est Cr Clr Drug Dosing mL/min Estimated GFR (MDRD) ml/min Glucose (60-110) mg/dL POC Glucose (60-110) mg/dL Calcium (8.8-10.8) mg/dL Magnesium (1.5-2.3) mEq/L Total Bilirubin (0.1-1.5) mg/dL AST (5-40) IU/L ALT (8-54) IU/L Alkaline Phosphatase (40-150) Total Protein (6.0-8.0) g/dL Albumin (3.5-5.0) g/dL Globulin (2.0-3.5) g/dL Albumin/Globulin Ratio (1.3-2.8) Urine Color YELLOW Urine Appearance CLEAR Urine pH 6.0 (5.0-8.0) Ur Specific [place] 1.025 (1.001-1.035) Urine Protein 100 (NEGATIVE) mg/dL Urine Glucose (UA) NEGATIVE (NEGATIVE) mg/dL Urine Ketones NEGATIVE (NEGATIVE) mg/dL Urine Occult Blood TRACE-INTACT (NEGATIVE) Urine Nitrite NEGATIVE (NEGATIVE) Urine Bilirubin MODERATE H (NEGATIVE) Urine Urobilinogen 0.2 (<2.0) EU/dL Ur Leukocyte Esterase TRACE (NEGATIVE) Urine RBC 0-5 (0-2/HPF) Urine WBC 5-10 (0-5/HPF) Ur Epithelial Cells RARE (NONE-FEW) Urine Bacteria 1+ H (NEGATIVE) Med Orders - Current: Current Medications Acetaminophen (Tylenol Extra Strength) 1,000 mg PO Q6H PRN PRN Reason: Pain Last Admin: 10/06/16 12:05 Dose: 1,000 mg Hydrocodone Bitart/Acetaminophen (Morven 325-10 Mg) 1 - 2 tab PO Q4H PRN PRN Reason: Pain Last Admin: 10/08/16 08:48 Dose: 2 tab Diphenhydramine HCl (Benadryl) 25 mg PO Q6H PRN PRN Reason: Itching Hydromorphone HCl (Dilaudid) 1 mg IVPUSH Q2H PRN PRN Reason: Pain (severe 7-10) Last Admin: 10/08/16 04:53 Dose: 1 mg Pantoprazole Sodium 40 mg/ (Sodium Chloride) 10 mls @ 300 mls/hr IVPUSH Q12H [facility] Last Admin: 10/08/16 10:19 Dose: 300 mls/hr Prochlorperazine Edisylate 5 (mg/ Sodium Chloride) 51 mls @ 150 mls/hr IV Q6H PRN PRN Reason: Nausea/Vomiting Last Admin: 10/07/16 05:55 Dose: 150 mls/hr Sodium Chloride (Normal Saline) 1,000 mls @ 125 mls/hr IV ASDIRECTED [facility] Last Admin: 10/08/16 05:29 Dose: 125 mls/hr Levofloxacin/Dextrose 750 mg/ (Premix) 150 mls @ 100 mls/hr IV Q24H [facility] Last Admin: 10/08/16 10:20 Dose: 100 mls/hr Ceftriaxone Sodium/Dextrose 1 (gm/ Premix) 50 mls @ 100 mls/hr IV Q24H [facility] Insulin Aspart (Novolog) 0 unit SUBCUT QIDACANDBED [facility] PRN Reason: Protocol Last Admin: 10/08/16 07:27 Dose: 6 units Insulin Glargine (Lantus Solostar) 30 units SUBCUT DAILY [facility] Last Admin: 10/08/16 08:49 Dose: 30 units Lorazepam (Ativan) 0 mg IVPUSH Q4H PRN; Protocol PRN Reason: Anxiety Multivit/Ca Carb/B Cmplx/FA/Prenat (Renal Caps Softgel) 1 cap PO DAILY [facility] Last Admin: 10/08/16 08:49 Dose: 1 cap Ondansetron HCl (Zofran) 4 mg IVPUSH Q4H PRN PRN Reason: Nausea Last Admin: 10/06/16 11:51 Dose: 4 mg Rivaroxaban (Xarelto) 10 mg PO DAILY [facility] Last Admin: 10/08/16 08:48 Dose: 10 mg Sodium Chloride (Saline Flush) 10 ml FLUSH ASDIRECTED PRN PRN Reason: Keep Vein Open Sodium Chloride (Saline Flush) 2.5 ml FLUSH ASDIRECTED PRN PRN Reason: Keep Vein Open Thiamine HCl (Vitamin B-1) 100 mg PO BEDTIME [facility] Last Admin: 10/07/16 21:07 Dose: 100 mg Discontinued Medications Diphenhydramine HCl (Benadryl) 25 mg IVPUSH ONETIME ONE Stop: 10/07/16 08:57 Last Admin: 10/07/16 09:19 Dose: 25 mg Fentanyl (Sublimaze) Confirm Administered Dose 100 mcg .ROUTE .STK-MED ONE Stop: 10/06/16 07:24 Furosemide (Lasix) 40 mg IVPUSH NOW ONE Stop: 10/06/16 21:27 Last Admin: 10/06/16 21:58 Dose: 40 mg Hydromorphone HCl (Dilaudid) 1 mg IVPUSH ONETIME ONE Stop: 10/04/16 23:45 Last Admin: 10/05/16 00:06 Dose: 1 mg Sodium Chloride (Normal Saline) 1,000 mls @ 125 mls/hr IV STAT [facility] Last Infusion: 10/05/16 12:56 Dose: 100 mls/hr Multivitamins/Minerals 10 ml/Thiamine HCl 100 mg/ Folic Acid 1 mg/ Sodium Chloride 1,011.2 mls @ 125 mls/hr IV DAILY ONE Stop: 10/05/16 08:42 Last Admin: 10/05/16 01:24 Dose: 125 mls/hr Vancomycin HCl 1 gm/ Sodium (Chloride) 250 mls @ 167 mls/hr IV ONETIME ONE Stop: 10/06/16 08:29 Last Admin: 10/06/16 07:00 Dose: 167 mls/hr Sodium Chloride (Normal Saline) 1,000 mls @ 100 mls/hr IV ASDIRECTED [facility] Last Admin: 10/06/16 03:14 Dose: 100 mls/hr Pantoprazole Sodium 40 mg/ (Sodium Chloride) 10 mls @ 300 mls/hr IVPUSH NOW ONE Stop: 10/05/16 12:46 Last Admin: 10/05/16 13:18 Dose: 300 mls/hr Vancomycin HCl 1 gm/ Sodium (Chloride) 250 mls @ 166.667 mls/hr IV ONETIME ONE Stop: 10/07/16 08:29 Vancomycin HCl 1 gm/ Sodium (Chloride) 250 mls @ 166.667 mls/hr IV ONETIME ONE Stop: 10/06/16 11:59 Vancomycin HCl 1 gm/ Sodium (Chloride) 250 mls @ 166.667 mls/hr IV ONETIME ONE Stop: 10/07/16 08:29 Last Admin: 10/07/16 06:16 Dose: 166.667 mls/hr Lactated Ringer's (Ringers, Lactated) 1,000 mls @ 125 mls/hr IV ASDIRECTED [facility] Last Admin: 10/06/16 19:02 Dose: 125 mls/hr Prochlorperazine Edisylate 5 (mg/ Sodium Chloride) 51 mls @ 150 mls/hr IV Q6H PRN PRN Reason: Nausea/Vomiting Multivitamins/Minerals 10 ml/Thiamine HCl 100 mg/ Folic Acid 1 mg/ Sodium Chloride 1,011.2 mls @ 100 mls/hr IV ONETIME ONE Stop: 10/07/16 06:49 Last Admin: 10/06/16 21:27 Dose: 100 mls/hr Magnesium Sulfate 4 gm/ Premix 100 mls @ 50 mls/hr IV ONETIME ONE Stop: 10/07/16 09:57 Last Admin: 10/07/16 08:30 Dose: 50 mls/hr Sodium Chloride (Normal Saline) 500 mls @ 500 mls/hr IV .BOLUS ONE Stop: 10/08/16 04:33 Last Admin: 10/08/16 04:03 Dose: 500 mls/hr Sodium Chloride (Normal Saline) 1,000 mls @ 125 mls/hr IV ASDIRECTED [facility] Insulin Aspart (Novolog) 0 unit SUBCUT Q6H [facility] PRN Reason: Protocol Last Admin: 10/05/16 06:47 Dose: Not Given Insulin Aspart (Novolog) 10 unit SUBCUT NOW ONE Stop: 10/07/16 12:11 Last Admin: 10/07/16 12:41 Dose: Not Given Insulin Human Regular (Novolin R) 10 unit IVPUSH ONETIME ONE PRN Reason: Protocol Stop: 10/07/16 12:10 Last Admin: 10/07/16 12:43 Dose: 10 units Midazolam HCl (Versed 1 Mg/Ml) Confirm Administered Dose 2 mg .ROUTE .STK-MED ONE Stop: 10/06/16 07:24 Ondansetron HCl (Zofran) 4 mg IVPUSH ONETIME ONE Stop: 10/04/16 23:45 Last Admin: 10/05/16 00:06 Dose: 4 mg Ondansetron HCl (Zofran) Confirm Administered Dose 4 mg .ROUTE .STK-MED ONE Stop: 10/06/16 07:23 Phenylephrine HCl (Ramiro-Synephrine) Confirm Administered Dose 10 mg .ROUTE .STK- MED ONE Stop: 10/06/16 08:42 Propofol (Diprivan 20 Ml) Confirm Administered Dose 1,200 mg .ROUTE .STK-MED ONE Stop: 10/06/16 07:24 Scopolamine (Transderm-Scop) Confirm Administered Dose 1.5 mg .ROUTE .STK-MED ONE Stop: 10/06/16 07:46 - Exam Quality Assessment: supplemental oxygen (2 L NC), urine catheter, DVT prophylaxis General: alert, oriented, cooperative, no acute distress Neck: supple Lungs: Normal respiratory effort, Crackles (fine crackles to R base) Cardiovascular: Regular Rate, Regular Rhythm, No Murmurs. No: Tachycardia Abdomen: bowel sounds present, soft, no tenderness, no distension Extremities: normal pulses, no calf tenderness, edema (+2 edema to R hip, tight in appearance, encouraged to keep Polar ice intact.) Wound/Incisions: dressing dry and intact Psy/Mental Status: alert, normal affect, normal mood - Problem List & Annotations (1) Intertrochanteric fracture, hip SNOMED Code(s): 820330121 Code(s): S72.143A - DISPLACED INTERTROCHANTERIC FRACTURE OF UNSP FEMUR, INIT Status: Acute Priority: High Current Visit: Yes (2) UTI, Urinary tract infectious disease SNOMED Code(s): 36531825 Code(s): N39.0 - URINARY TRACT INFECTION, SITE NOT SPECIFIED Status: Acute Current Visit: No Onset Date: 12/09/13 (3) Dehydration SNOMED Code(s): 36878306 Code(s): E86.0 - DEHYDRATION Status: Acute Current Visit: No Onset Date : 07/13/14 (4) Diabetes mellitus SNOMED Code(s): 72242740 Code(s): E11.9 - TYPE 2 DIABETES MELLITUS WITHOUT COMPLICATIONS Status: Chronic Priority: Medium Current Visit: Yes Qualifiers: Diabetes mellitus type: type 2 Diabetes mellitus complication status: without complication Diabetes mellitus chcf insulin use: with terminal gauger supervisor use Qualified Code(s): E11.9 - Type 2 diabetes mellitus without complications ; Z79.4 - long term (current) use of insulin (5) Alcohol withdrawal SNOMED Code(s): 760134604 Code(s): F10.239 - ALCOHOL DEPENDENCE WITH WITHDRAWAL, UNSPECIFIED Status: Suspected Priority: High Current Visit: Yes Qualifiers: Complication of substance-induced condition: uncomplicated Qualified Code(s ): F10.230 - Alcohol dependence with withdrawal, uncomplicated (6) Alcohol intoxication SNOMED Code(s): 94480124 Code(s): F10.929 - ALCOHOL USE, UNSPECIFIED WITH INTOXICATION, UNSPECIFIED Status: Resolved Current Visit: Yes Qualifiers: Complication of substance-induced condition: uncomplicated Qualified Code(s ): F10.920 - Alcohol use, unspecified with intoxication, uncomplicated - Problem List Review Problem List Initiated/Reviewed/Updated: Yes - My Orders Last 24 Hours: My Active Orders 10/08/16 08:45 Chest 1V Frontal [CR] Routine diphenhydrAMINE [Benadryl] 25 mg PO Q6H PRN - Plan Plan:: 56 year old female with acute right hip fracture IT and acute alcohol intoxication. 1. Right hip fx: S/P closed reduction with insertion of CM nail per Ortho, 2016. Pain controlled. Upon discharge, Home care plan in place and patient has help at home. 2. Leukocytosis: Noted this morning. UA positive for UTI. Will start Rocephin and Levaquin per Dr. Yancey. CXR pending. IS encouraged. 3. Dehydration: Will continue IVFs NS 125 today, monitor. Encouraged to drink good fluids. 4. ETOH abuse: CIWAA 0this am no signs of withdrawal at this time. Continue Thiamine and Folate. 5. DM: BS remain elevated, Continue Lantus and Novolog. 6.HTN:S table Continue on home meds. VTE prophylaxis: Xarelto Dispo: 1-2 days.
[2016-10-08] MEDS ORDERED: cefTRIAXone 1 GM in Premix Bag 1 BAG IV SCH (11:30)
--- NOTE | 2016-10-08 11:51 | CR ---
EXAMINATION: Portable chest radiograph. HISTORY: Dyspnea. FINDINGS: The trachea is midline. The cardiomediastinal silhouette is within normal limits. No pulmonary infil trates, effusions or pneumothorax. Degenerative changes noted within the shoulders. IMPRESSION: No acute cardiopulmonary process.
--- NOTE | 2016-10-08 17:58 | PCM.SN ---
- Free Text/Narrative Note: Pt seen and examined. Sitting up in chair eating. Pain controlled. Walked with PT today and did stairs. UTI noted, Norris continued. Will continue with PT while hospitalized. Hgb stable. OK for discharge from ortho standpoint once able to void on own. Anticipate Norris d/c tomorrow. Will follow.
[2016-10-08] MEDS ORDERED: Polyethylene Glycol 3350 Powder 17 GM Packet PO PRN (17:59)
[2016-10-08] MEDS: Docusate Sodium 100 MG Cap PO SCH (21:25)
[2016-10-08] MEDS: Thiamine 100 MG Tab PO SCH (21:25)
[2016-10-09] MEDS: Acetaminophen/HYDROcodone 325-10 MG Tab PO PRN ×3 (00:14→18:55)
[2016-10-09] MEDS: Sodium Chloride 0.9% 1,000 ML IV SCH (00:50)
[2016-10-09] MEDS: HYDROmorphone 1 MG/ML Syringe IVPUSH PRN (02:58)
[2016-10-09 05:26] LABS: CHLORIDE,CL 103 mmol/L (98-110); SODIUM,NA 133 mmol/L (136-146)
[2016-10-09] MEDS: Insulin Aspart 100 Units/ML 3 ML Pen SUBCUT SCH ×3 (06:46→16:50)
[2016-10-09] MEDS: Docusate Sodium 100 MG Cap PO SCH (08:01)
[2016-10-09] MEDS: Rivaroxaban 10 MG Tab PO SCH (08:01)
[2016-10-09] MEDS: Folic Acid/Vitamin B Complex With C Cap PO SCH (08:02)
[2016-10-09] MEDS: Insulin Glargine,Human Rec. Analog 100 Units/ML 3 ML Pen SUBCUT SCH (08:02)
--- NOTE | 2016-10-09 08:26 | PCM.SURGPN ---
<Thania Dewitt R - Last Filed: 10/09/16 08:21> - General Info Date of Service: 10/09/16 Date of Surgery/Procedure: 10/06/16 POD#: 3 Functional Status: Reports: pain controlled. Denies: urinating - Review of Systems General: Reports: No Symptoms Cardiovascular: Reports: No Symptoms Gastrointestinal: Reports: No symptoms Genitourinary: Reports: retention Musculoskeletal: Reports: leg pain Systems Review Comment:: pt up to chair for breakfast tolerating PO intake well no nausea/vomiting bo was not removed yesterday per hospitalist able to ambulate/navigate stairs with PT yesterday pt verbalizes some anxiety about d/ch to home, but does want to go home - Patient Data Vitals - most recent: Last Vital Signs Temp 99.3 F 10/09/16 04:00 Pulse 90 10/09/16 04:00 Resp 18 10/09/16 04:00 BP 131/62 10/09/16 04:00 Pulse Ox 96 10/09/16 04:00 Weight - most recent: 75 kg I&O - last 24 hours: Intake & Output 10/08/16 10/09/16 10/09/16 22:59 06:59 14:59 Intake Total 1560 2529 Output Total 200 570 Balance 1360 1959 Lab Results last 24 hrs: Laboratory Results - last 24 hr 10/08/16 10/08/16 10/08/16 Range/Units 09:00 11:32 17:11 WBC (4.0-11.0) K/uL RBC (4.30-5.90) M/uL Hgb (12.0-16.0) g/dL Hct (36.0-46.0) % MCV (80.0-98.0) fL MCH (27.0-32.0) pg MCHC (31.0-37.0) g/dL RDW Std Deviation (28.0-62.0) fl RDW Coeff of Mahesh (11.0-15.0) % Plt Count (150-400) K/uL MPV (7.40-12.00) fL Neut % (Auto) (48.0-80.0) % Lymph % (Auto) (16.0-40.0) % Eddy % (Auto) (0.0-15.0) % Eos % (Auto) (0.0-7.0) % Baso % (Auto) (0.0-1.5) % Neut # (Auto) (1.4-5.7) K/uL Lymph # (Auto) (0.6-2.4) K/uL Eddy # (Auto) (0.0-0.8) K/uL Eos # (Auto) (0.0-0.7) K/uL Baso # (Auto) (0.0-0.1) K/uL Nucleated RBC % /100WBC Nucleated RBCs # K/uL Sodium (136-146) mmol/L Potassium (3.5-5.1) mmol/L Chloride (98-110) mmol/L Carbon Dioxide (21-31) mmol/L BUN (6.0-23.0) mg/dL Creatinine (0.6-1.5) mg/dL Est Cr Clr Drug Dosing mL/min Estimated GFR (MDRD) ml/min Glucose (60-110) mg/dL POC Glucose 211 H 135 H (60-110) mg/dL Calcium (8.8-10.8) mg/dL Magnesium (1.5-2.3) mEq/L Total Bilirubin (0.1-1.5) mg/dL AST (5-40) IU/L ALT (8-54) IU/L Alkaline Phosphatase (40-150) Total Protein (6.0-8.0) g/dL Albumin (3.5-5.0) g/dL Globulin (2.0-3.5) g/dL Albumin/Globulin Ratio (1.3-2.8) Urine Color YELLOW Urine Appearance CLEAR Urine pH 6.0 (5.0-8.0) Ur Specific [place] 1.025 (1.001-1.035) Urine Protein 100 (NEGATIVE) mg/dL Urine Glucose (UA) NEGATIVE (NEGATIVE) mg/dL Urine Ketones NEGATIVE (NEGATIVE) mg/dL Urine Occult Blood TRACE-INTACT (NEGATIVE) Urine Nitrite NEGATIVE (NEGATIVE) Urine Bilirubin MODERATE H (NEGATIVE) Urine Urobilinogen 0.2 (<2.0) EU/dL Ur Leukocyte Esterase TRACE (NEGATIVE) Urine RBC 0-5 (0-2/HPF) Urine WBC 5-10 (0-5/HPF) Ur Epithelial Cells RARE (NONE-FEW) Urine Bacteria 1+ H (NEGATIVE) 10/08/16 10/09/16 10/09/16 Range/Units 21:33 04:45 04:45 WBC 12.61 H (4.0-11.0) K/uL RBC 2.61 L (4.30-5.90) M/uL Hgb 7.9 L (12.0-16.0) g/dL Hct 24.0 L (36.0-46.0) % MCV 92.0 (80.0-98.0) fL MCH 30.3 (27.0-32.0) pg MCHC 32.9 (31.0-37.0) g/dL RDW Std Deviation 42.7 (28.0-62.0) fl RDW Coeff of Mahesh 13 (11.0-15.0) % Plt Count 243 (150-400) K/uL MPV 10.40 (7.40-12.00) fL Neut % (Auto) 72.3 (48.0-80.0) % Lymph % (Auto) 13.1 L (16.0-40.0) % Eddy % (Auto) 10.5 (0.0-15.0) % Eos % (Auto) 3.9 (0.0-7.0) % Baso % (Auto) 0.2 (0.0-1.5) % Neut # (Auto) 9.1 H (1.4-5.7) K/uL Lymph # (Auto) 1.7 (0.6-2.4) K/uL Eddy # (Auto) 1.3 H (0.0-0.8) K/uL Eos # (Auto) 0.5 (0.0-0.7) K/uL Baso # (Auto) 0.0 (0.0-0.1) K/uL Nucleated RBC % 0.0 /100WBC Nucleated RBCs # 0 K/uL Sodium 133 L (136-146) mmol/L Potassium 4.7 (3.5-5.1) mmol/L Chloride 103 (98-110) mmol/L Carbon Dioxide 21 (21-31) mmol/L BUN 29 H (6.0-23.0) mg/dL Creatinine 0.9 (0.6-1.5) mg/dL Est Cr Clr Drug Dosing 71.53 mL/min Estimated GFR (MDRD) > 60.0 ml/min Glucose 103 (60-110) mg/dL POC Glucose 177 H (60-110) mg/dL Calcium 7.8 L (8.8-10.8) mg/dL Magnesium 1.8 (1.5-2.3) mEq/L Total Bilirubin 0.5 (0.1-1.5) mg/dL AST 30 (5-40) IU/L ALT 24 (8-54) IU/L Alkaline Phosphatase 79 (40-150) Total Protein 4.9 L (6.0-8.0) g/dL Albumin 2.9 L (3.5-5.0) g/dL Globulin 2.0 (2.0-3.5) g/dL Albumin/Globulin Ratio 1.5 (1.3-2.8) Urine Color Urine Appearance Urine pH (5.0-8.0) Ur Specific [place] (1.001-1.035) Urine Protein (NEGATIVE) mg/dL Urine Glucose (UA) (NEGATIVE) mg/dL Urine Ketones (NEGATIVE) mg/dL Urine Occult Blood (NEGATIVE) Urine Nitrite (NEGATIVE) Urine Bilirubin (NEGATIVE) Urine Urobilinogen (<2.0) EU/dL Ur Leukocyte Esterase (NEGATIVE) Urine RBC (0-2/HPF) Urine WBC (0-5/HPF) Ur Epithelial Cells (NONE-FEW) Urine Bacteria (NEGATIVE) 10/09/16 Range/Units 06:10 WBC (4.0-11.0) K/uL RBC (4.30-5.90) M/uL Hgb (12.0-16.0) g/dL Hct (36.0-46.0) % MCV (80.0-98.0) fL MCH (27.0-32.0) pg MCHC (31.0-37.0) g/dL RDW Std Deviation (28.0-62.0) fl RDW Coeff of Mahesh (11.0-15.0) % Plt Count (150-400) K/uL MPV (7.40-12.00) fL Neut % (Auto) (48.0-80.0) % Lymph % (Auto) (16.0-40.0) % Eddy % (Auto) (0.0-15.0) % Eos % (Auto) (0.0-7.0) % Baso % (Auto) (0.0-1.5) % Neut # (Auto) (1.4-5.7) K/uL Lymph # (Auto) (0.6-2.4) K/uL Eddy # (Auto) (0.0-0.8) K/uL Eos # (Auto) (0.0-0.7) K/uL Baso # (Auto) (0.0-0.1) K/uL Nucleated RBC % /100WBC Nucleated RBCs # K/uL Sodium (136-146) mmol/L Potassium (3.5-5.1) mmol/L Chloride (98-110) mmol/L Carbon Dioxide (21-31) mmol/L BUN (6.0-23.0) mg/dL Creatinine (0.6-1.5) mg/dL Est Cr Clr Drug Dosing mL/min Estimated GFR (MDRD) ml/min Glucose (60-110) mg/dL POC Glucose 114 H (60-110) mg/dL Calcium (8.8-10.8) mg/dL Magnesium (1.5-2.3) mEq/L Total Bilirubin (0.1-1.5) mg/dL AST (5-40) IU/L ALT (8-54) IU/L Alkaline Phosphatase (40-150) Total Protein (6.0-8.0) g/dL Albumin (3.5-5.0) g/dL Globulin (2.0-3.5) g/dL Albumin/Globulin Ratio (1.3-2.8) Urine Color Urine Appearance Urine pH (5.0-8.0) Ur Specific [place] (1.001-1.035) Urine Protein (NEGATIVE) mg/dL Urine Glucose (UA) (NEGATIVE) mg/dL Urine Ketones (NEGATIVE) mg/dL Urine Occult Blood (NEGATIVE) Urine Nitrite (NEGATIVE) Urine Bilirubin (NEGATIVE) Urine Urobilinogen (<2.0) EU/dL Ur Leukocyte Esterase (NEGATIVE) Urine RBC (0-2/HPF) Urine WBC (0-5/HPF) Ur Epithelial Cells (NONE-FEW) Urine Bacteria (NEGATIVE) Med Orders - Current: Current Medications Acetaminophen (Tylenol Extra Strength) 1,000 mg PO Q6H PRN PRN Reason: Pain Last Admin: 10/06/16 12:05 Dose: 1,000 mg Hydrocodone Bitart/Acetaminophen ([place] 325-10 Mg) 1 - 2 tab PO Q4H PRN PRN Reason: Pain Last Admin: 10/09/16 00:14 Dose: 2 tab Diphenhydramine HCl (Benadryl) 25 mg PO Q6H PRN PRN Reason: Itching Last Admin: 10/08/16 21:25 Dose: 25 mg Docusate Sodium (Colace) 100 mg PO BID [facility] Last Admin: 10/09/16 08:01 Dose: 100 mg Hydromorphone HCl (Dilaudid) 1 mg IVPUSH Q2H PRN PRN Reason: Pain (severe 7-10) Last Admin: 10/09/16 02:58 Dose: 1 mg Pantoprazole Sodium 40 mg/ (Sodium Chloride) 10 mls @ 300 mls/hr IVPUSH Q12H [facility] Last Admin: 10/08/16 21:51 Dose: 300 mls/hr Prochlorperazine Edisylate 5 (mg/ Sodium Chloride) 51 mls @ 150 mls/hr IV Q6H PRN PRN Reason: Nausea/Vomiting Last Admin: 10/07/16 05:55 Dose: 150 mls/hr Sodium Chloride (Normal Saline) 1,000 mls @ 125 mls/hr IV ASDIRECTED [facility] Last Admin: 10/09/16 00:50 Dose: 125 mls/hr Levofloxacin/Dextrose 750 mg/ (Premix) 150 mls @ 100 mls/hr IV Q24H [facility] Last Admin: 10/08/16 10:20 Dose: 100 mls/hr Insulin Aspart (Novolog) 0 unit SUBCUT QIDACANDBED [facility] PRN Reason: Protocol Last Admin: 10/09/16 06:46 Dose: Not Given Insulin Glargine (Lantus Solostar) 30 units SUBCUT DAILY [facility] Last Admin: 10/09/16 08:02 Dose: 30 units Lorazepam (Ativan) 0 mg IVPUSH Q4H PRN; Protocol PRN Reason: Anxiety Multivit/Ca Carb/B Cmplx/FA/Prenat (Renal Caps Softgel) 1 cap PO DAILY [facility] Last Admin: 10/09/16 08:02 Dose: 1 cap Ondansetron HCl (Zofran) 4 mg IVPUSH Q4H PRN PRN Reason: Nausea Last Admin: 10/06/16 11:51 Dose: 4 mg Polyethylene Glycol (Miralax) 17 gm PO ONETIME PRN PRN Reason: Constipation Last Admin: 10/09/16 08:01 Dose: 17 gm Rivaroxaban (Xarelto) 10 mg PO DAILY [facility] Last Admin: 10/09/16 08:01 Dose: 10 mg Sodium Chloride (Saline Flush) 10 ml FLUSH ASDIRECTED PRN PRN Reason: Keep Vein Open Sodium Chloride (Saline Flush) 2.5 ml FLUSH ASDIRECTED PRN PRN Reason: Keep Vein Open Thiamine HCl (Vitamin B-1) 100 mg PO BEDTIME [facility] Last Admin: 10/08/16 21:25 Dose: 100 mg Discontinued Medications Diphenhydramine HCl (Benadryl) 25 mg IVPUSH ONETIME ONE Stop: 10/07/16 08:57 Last Admin: 10/07/16 09:19 Dose: 25 mg Fentanyl (Sublimaze) Confirm Administered Dose 100 mcg .ROUTE .STK-MED ONE Stop: 10/06/16 07:24 Furosemide (Lasix) 40 mg IVPUSH NOW ONE Stop: 10/06/16 21:27 Last Admin: 10/06/16 21:58 Dose: 40 mg Hydromorphone HCl (Dilaudid) 1 mg IVPUSH ONETIME ONE Stop: 10/04/16 23:45 Last Admin: 10/05/16 00:06 Dose: 1 mg Sodium Chloride (Normal Saline) 1,000 mls @ 125 mls/hr IV STAT [facility] Last Infusion: 10/05/16 12:56 Dose: 100 mls/hr Multivitamins/Minerals 10 ml/Thiamine HCl 100 mg/ Folic Acid 1 mg/ Sodium Chloride 1,011.2 mls @ 125 mls/hr IV DAILY ONE Stop: 10/05/16 08:42 Last Admin: 10/05/16 01:24 Dose: 125 mls/hr Vancomycin HCl 1 gm/ Sodium (Chloride) 250 mls @ 167 mls/hr IV ONETIME ONE Stop: 10/06/16 08:29 Last Admin: 10/06/16 07:00 Dose: 167 mls/hr Sodium Chloride (Normal Saline) 1,000 mls @ 100 mls/hr IV ASDIRECTED [facility] Last Admin: 10/06/16 03:14 Dose: 100 mls/hr Pantoprazole Sodium 40 mg/ (Sodium Chloride) 10 mls @ 300 mls/hr IVPUSH NOW ONE Stop: 10/05/16 12:46 Last Admin: 10/05/16 13:18 Dose: 300 mls/hr Vancomycin HCl 1 gm/ Sodium (Chloride) 250 mls @ 166.667 mls/hr IV ONETIME ONE Stop: 10/07/16 08:29 Vancomycin HCl 1 gm/ Sodium (Chloride) 250 mls @ 166.667 mls/hr IV ONETIME ONE Stop: 10/06/16 11:59 Vancomycin HCl 1 gm/ Sodium (Chloride) 250 mls @ 166.667 mls/hr IV ONETIME ONE Stop: 10/07/16 08:29 Last Admin: 10/07/16 06:16 Dose: 166.667 mls/hr Lactated Ringer's (Ringers, Lactated) 1,000 mls @ 125 mls/hr IV ASDIRECTED [facility] Last Admin: 10/06/16 19:02 Dose: 125 mls/hr Prochlorperazine Edisylate 5 (mg/ Sodium Chloride) 51 mls @ 150 mls/hr IV Q6H PRN PRN Reason: Nausea/Vomiting Multivitamins/Minerals 10 ml/Thiamine HCl 100 mg/ Folic Acid 1 mg/ Sodium Chloride 1,011.2 mls @ 100 mls/hr IV ONETIME ONE Stop: 10/07/16 06:49 Last Admin: 10/06/16 21:27 Dose: 100 mls/hr Magnesium Sulfate 4 gm/ Premix 100 mls @ 50 mls/hr IV ONETIME ONE Stop: 10/07/16 09:57 Last Admin: 10/07/16 08:30 Dose: 50 mls/hr Sodium Chloride (Normal Saline) 500 mls @ 500 mls/hr IV .BOLUS ONE Stop: 10/08/16 04:33 Last Admin: 10/08/16 04:03 Dose: 500 mls/hr Sodium Chloride (Normal Saline) 1,000 mls @ 125 mls/hr IV ASDIRECTED [facility] Ceftriaxone Sodium/Dextrose 1 (gm/ Premix) 50 mls @ 100 mls/hr IV Q24H [facility] Last Admin: 10/08/16 11:57 Dose: 100 mls/hr Insulin Aspart (Novolog) 0 unit SUBCUT Q6H [facility] PRN Reason: Protocol Last Admin: 10/05/16 06:47 Dose: Not Given Insulin Aspart (Novolog) 10 unit SUBCUT NOW ONE Stop: 10/07/16 12:11 Last Admin: 10/07/16 12:41 Dose: Not Given Insulin Human Regular (Novolin R) 10 unit IVPUSH ONETIME ONE PRN Reason: Protocol Stop: 10/07/16 12:10 Last Admin: 10/07/16 12:43 Dose: 10 units Midazolam HCl (Versed 1 Mg/Ml) Confirm Administered Dose 2 mg .ROUTE .STK-MED ONE Stop: 10/06/16 07:24 Ondansetron HCl (Zofran) 4 mg IVPUSH ONETIME ONE Stop: 10/04/16 23:45 Last Admin: 10/05/16 00:06 Dose: 4 mg Ondansetron HCl (Zofran) Confirm Administered Dose 4 mg .ROUTE .STK-MED ONE Stop: 10/06/16 07:23 Phenylephrine HCl (Ramiro-Synephrine) Confirm Administered Dose 10 mg .ROUTE .STK- MED ONE Stop: 10/06/16 08:42 Propofol (Diprivan 20 Ml) Confirm Administered Dose 1,200 mg .ROUTE .STK-MED ONE Stop: 10/06/16 07:24 Scopolamine (Transderm-Scop) Confirm Administered Dose 1.5 mg .ROUTE .STK-MED ONE Stop: 10/06/16 07:46 - Exam Wound/Incisions: dressing dry and intact General: alert, oriented Cardiovascular: Regular Rate, Regular Rhythm Extremities: no edema, normal pulses, no calf tenderness, other (RLE - at/ehl/ gastroc 5/5, dp 2+, sensation intact distally) Physical Findings Comment:: vss, afeb hgb 7.9 UO 770mL - Problem List Review Problem List Initiated/Reviewed/Updated: Yes - My Orders Last 24 Hours: Active Orders 24 hr Category Date Time Status DC Ob Catheter [Urinary Catheter Removal] [RC] Per Care 10/09/16 08:00 Active Unit Routine Dressing Change [Wound Care] [RC] ASDIRECTED Care 10/08/16 08:14 Active Remove Bo Catheter [Urinary Catheter Removal] [RC] Care 10/08/16 08:37 Inactive Per Unit Routine CULTURE URINE [RM] Routine Lab 10/09/16 08:05 Ordered RED BLOOD CELLS LP [BBK] Routine Lab 10/09/16 08:07 Ordered TYPE AND SCREEN [BBK] Routine Lab 10/09/16 08:07 Ordered Docusate Sodium [Colace] Med 10/08/16 21:00 Active 100 mg PO BID Levofloxacin/Dextrose 5%-Water [Levaquin in D5W 750 MG/ Med 10/08/16 09:45 Active 150 ML] 750 mg Premix Bag 1 bag IV Q24H Polyethylene Glycol 3350 [MiraLAX] Med 10/08/16 17:59 Active 17 gm PO ONETIME PRN diphenhydrAMINE [Benadryl] Med 10/08/16 08:45 Active 25 mg PO Q6H PRN Transfuse Red Blood Cells [COMM] Routine Oth 10/09/16 08:08 Ordered Medication Orders Acetaminophen (Tylenol Extra Strength) 1,000 mg PO Q6H PRN PRN Reason: Pain Last Admin: 10/06/16 12:05 Dose: 1,000 mg Admin: 10/05/16 13:38 Dose: 1,000 mg Hydrocodone Bitart/Acetaminophen ([place] 325-10 Mg) 1 - 2 tab PO Q4H PRN PRN Reason: Pain Last Admin: 10/09/16 00:14 Dose: 2 tab Admin: 10/08/16 17:17 Dose: 2 tab Admin: 10/08/16 08:48 Dose: 2 tab Admin: 10/08/16 01:52 Dose: 2 tab Admin: 10/07/16 15:18 Dose: 2 tab Admin: 10/07/16 10:12 Dose: 2 tab Admin: 10/07/16 05:50 Dose: 2 tab Admin: 10/06/16 20:59 Dose: 2 tab Admin: 10/06/16 14:17 Dose: 2 tab Diphenhydramine HCl (Benadryl) 25 mg PO Q6H PRN PRN Reason: Itching Last Admin: 10/08/16 21:25 Dose: 25 mg Docusate Sodium (Colace) 100 mg PO BID [facility] Last Admin: 10/09/16 08:01 Dose: 100 mg Admin: 10/08/16 21:25 Dose: 100 mg Hydromorphone HCl (Dilaudid) 1 mg IVPUSH Q2H PRN PRN Reason: Pain (severe 7-10) Last Admin: 10/09/16 02:58 Dose: 1 mg Admin: 10/08/16 11:58 Dose: 1 mg Admin: 10/08/16 04:53 Dose: 1 mg Admin: 10/06/16 13:05 Dose: 1 mg Admin: 10/06/16 06:07 Dose: 1 mg Admin: 10/06/16 02:32 Dose: 1 mg Admin: 10/05/16 21:35 Dose: 1 mg Admin: 10/05/16 13:48 Dose: 1 mg Admin: 10/05/16 10:33 Dose: 1 mg Admin: 10/05/16 04:22 Dose: 1 mg Admin: 10/05/16 02:21 Dose: 1 mg Pantoprazole Sodium 40 mg/ (Sodium Chloride) 10 mls @ 300 mls/hr IVPUSH Q12H [facility] Last Admin: 10/08/16 21:51 Dose: 300 mls/hr Infusion: 10/08/16 10:21 Dose: 300 mls/hr Admin: 10/08/16 10:19 Dose: 300 mls/hr Infusion: 10/07/16 21:09 Dose: 300 mls/hr Admin: 10/07/16 21:07 Dose: 300 mls/hr Infusion: 10/07/16 09:37 Dose: 300 mls/hr Admin: 10/07/16 09:35 Dose: 300 mls/hr Infusion: 10/06/16 21:09 Dose: 300 mls/hr Admin: 10/06/16 21:07 Dose: 300 mls/hr Infusion: 10/06/16 10:51 Dose: 300 mls/hr Admin: 10/06/16 10:49 Dose: 300 mls/hr Infusion: 10/05/16 21:25 Dose: 300 mls/hr Admin: 10/05/16 21:23 Dose: 300 mls/hr Prochlorperazine Edisylate 5 (mg/ Sodium Chloride) 51 mls @ 150 mls/hr IV Q6H PRN PRN Reason: Nausea/Vomiting Last Admin: 10/07/16 05:55 Dose: 150 mls/hr Infusion: 10/06/16 14:18 Dose: 150 mls/hr Admin: 10/06/16 13:57 Dose: 150 mls/hr Sodium Chloride (Normal Saline) 1,000 mls @ 125 mls/hr IV ASDIRECTED [facility] Last Admin: 10/09/16 00:50 Dose: 125 mls/hr Infusion: 10/09/16 00:50 Dose: 125 mls/hr Admin: 10/08/16 16:59 Dose: 125 mls/hr Infusion: 10/08/16 13:29 Dose: 125 mls/hr Admin: 10/08/16 05:29 Dose: 125 mls/hr Levofloxacin/Dextrose 750 mg/ (Premix) 150 mls @ 100 mls/hr IV Q24H [facility] Last Admin: 10/08/16 10:20 Dose: 100 mls/hr Insulin Aspart (Novolog) 0 unit SUBCUT QIDACANDBED [facility] PRN Reason: Protocol Last Admin: 10/09/16 06:46 Dose: Admin: 10/08/16 21:35 Dose: 2 units Admin: 10/08/16 17:12 Dose: Admin: 10/08/16 12:16 Dose: 4 units Admin: 10/08/16 07:27 Dose: 6 units Admin: 10/07/16 21:09 Dose: 10 units Admin: 10/07/16 17:04 Dose: 10 units Admin: 10/07/16 12:11 Dose: 10 units Admin: 10/07/16 07:42 Dose: 8 units Admin: 10/06/16 21:05 Dose: 6 units Admin: 10/06/16 18:17 Dose: 4 units Admin: 10/06/16 11:23 Dose: 4 units Admin: 10/06/16 07:24 Dose: 6 units Admin: 10/05/16 21:22 Dose: 4 units Admin: 10/05/16 17:09 Dose: 2 units Admin: 10/05/16 10:57 Dose: 2 units Insulin Glargine (Lantus Solostar) 30 units SUBCUT DAILY [facility] Last Admin: 10/09/16 08:02 Dose: 30 units Admin: 10/08/16 08:49 Dose: 30 units Admin: 10/07/16 08:44 Dose: 30 units Lorazepam (Ativan) 0 mg IVPUSH Q4H PRN; Protocol PRN Reason: Anxiety Multivit/Ca Carb/B Cmplx/FA/Prenat (Renal Caps Softgel) 1 cap PO DAILY [facility] Last Admin: 10/09/16 08:02 Dose: 1 cap Admin: 10/08/16 08:49 Dose: 1 cap Admin: 10/07/16 09:39 Dose: 1 cap Ondansetron HCl (Zofran) 4 mg IVPUSH Q4H PRN PRN Reason: Nausea Last Admin: 10/06/16 11:51 Dose: 4 mg Admin: 10/05/16 16:52 Dose: 4 mg Admin: 10/05/16 10:53 Dose: 4 mg Admin: 10/05/16 04:32 Dose: 4 mg Polyethylene Glycol (Miralax) 17 gm PO ONETIME PRN PRN Reason: Constipation Last Admin: 10/09/16 08:01 Dose: 17 gm Rivaroxaban (Xarelto) 10 mg PO DAILY [facility] Last Admin: 10/09/16 08:01 Dose: 10 mg Admin: 10/08/16 08:48 Dose: 10 mg Admin: 10/07/16 08:32 Dose: 10 mg Sodium Chloride (Saline Flush) 10 ml FLUSH ASDIRECTED PRN PRN Reason: Keep Vein Open Sodium Chloride (Saline Flush) 2.5 ml FLUSH ASDIRECTED PRN PRN Reason: Keep Vein Open Thiamine HCl (Vitamin B-1) 100 mg PO BEDTIME [facility] Last Admin: 10/08/16 21:25 Dose: 100 mg Admin: 10/07/16 21:07 Dose: 100 mg - Assessment Assessment (Free Text/Narrative):: POD#3 CM nail R IT femur fx acute posthemorrhagic anemia - likely dilutional - Plan Plan (Free Text/Narrative):: orthopedically stable for d/ch to home [place] 10/325 for pain control Xarelto 10mg PO daily for 28 days as DVT prophylaxis may need PT on outpt basis, consider home care PT? remove ethel bo to d/ch to home if pt able to void <Chelsie Evans R - Last Filed: 10/09/16 09:21> - Patient Data Vitals - most recent: Last Vital Signs Temp 99.3 F 10/09/16 04:00 Pulse 90 06/28/17 04:00 Resp 18 10/09/16 04:00 BP 131/62 10/09/16 04:00 Pulse Ox 96 10/09/16 04:00 I&O - last 24 hours: Intake & Output 10/08/16 10/09/16 10/09/16 22:59 06:59 14:59 Intake Total 1560 2529 Output Total 200 570 Balance 1360 6459 Lab Results last 24 hrs: Laboratory Results - last 24 hr 10/08/16 10/08/16 10/08/16 Range/Units 09:00 11:32 17:11 WBC (4.0-11.0) K/uL RBC (4.30-5.90) M/uL Hgb (12.0-16.0) g/dL Hct (36.0-46.0) % MCV (80.0-98.0) fL MCH (27.0-32.0) pg MCHC (31.0-37.0) g/dL RDW Std Deviation (28.0-62.0) fl RDW Coeff of Mahesh (11.0-15.0) % Plt Count (150-400) K/uL MPV (7.40-12.00) fL Neut % (Auto) (48.0-80.0) % Lymph % (Auto) (16.0-40.0) % Eddy % (Auto) (0.0-15.0) % Eos % (Auto) (0.0-7.0) % Baso % (Auto) (0.0-1.5) % Neut # (Auto) (1.4-5.7) K/uL Lymph # (Auto) (0.6-2.4) K/uL Eddy # (Auto) (0.0-0.8) K/uL Eos # (Auto) (0.0-0.7) K/uL Baso # (Auto) (0.0-0.1) K/uL Nucleated RBC % /100WBC Nucleated RBCs # K/uL Sodium (136-146) mmol/L Potassium (3.5-5.1) mmol/L Chloride (98-110) mmol/L Carbon Dioxide (21-31) mmol/L BUN (6.0-23.0) mg/dL Creatinine (0.6-1.5) mg/dL Est Cr Clr Drug Dosing mL/min Estimated GFR (MDRD) ml/min Glucose (60-110) mg/dL POC Glucose 211 H 135 H (60-110) mg/dL Calcium (8.8-10.8) mg/dL Magnesium (1.5-2.3) mEq/L Total Bilirubin (0.1-1.5) mg/dL AST (5-40) IU/L ALT (8-54) IU/L Alkaline Phosphatase (40-150) Total Protein (6.0-8.0) g/dL Albumin (3.5-5.0) g/dL Globulin (2.0-3.5) g/dL Albumin/Globulin Ratio (1.3-2.8) Urine Color YELLOW Urine Appearance CLEAR Urine pH 6.0 (5.0-8.0) Ur Specific [place] 1.025 (1.001-1.035) Urine Protein 100 (NEGATIVE) mg/dL Urine Glucose (UA) NEGATIVE (NEGATIVE) mg/dL Urine Ketones NEGATIVE (NEGATIVE) mg/dL Urine Occult Blood TRACE-INTACT (NEGATIVE) Urine Nitrite NEGATIVE (NEGATIVE) Urine Bilirubin MODERATE H (NEGATIVE) Urine Urobilinogen 0.2 (<2.0) EU/dL Ur Leukocyte Esterase TRACE (NEGATIVE) Urine RBC 0-5 (0-2/HPF) Urine WBC 5-10 (0-5/HPF) Ur Epithelial Cells RARE (NONE-FEW) Urine Bacteria 1+ H (NEGATIVE) 10/08/16 10/09/16 10/09/16 Range/Units 21:33 04:45 04:45 WBC 12.61 H (4.0-11.0) K/uL RBC 2.61 L (4.30-5.90) M/uL Hgb 7.9 L (12.0-16.0) g/dL Hct 24.0 L (36.0-46.0) % MCV 92.0 (80.0-98.0) fL MCH 30.3 (27.0-32.0) pg MCHC 32.9 (31.0-37.0) g/dL RDW Std Deviation 42.7 (28.0-62.0) fl RDW Coeff of Mahesh 13 (11.0-15.0) % Plt Count 243 (150-400) K/uL MPV 10.40 (7.40-12.00) fL Neut % (Auto) 72.3 (48.0-80.0) % Lymph % (Auto) 13.1 L (16.0-40.0) % Eddy % (Auto) 10.5 (0.0-15.0) % Eos % (Auto) 3.9 (0.0-7.0) % Baso % (Auto) 0.2 (0.0-1.5) % Neut # (Auto) 9.1 H (1.4-5.7) K/uL Lymph # (Auto) 1.7 (0.6-2.4) K/uL Eddy # (Auto) 1.3 H (0.0-0.8) K/uL Eos # (Auto) 0.5 (0.0-0.7) K/uL Baso # (Auto) 0.0 (0.0-0.1) K/uL Nucleated RBC % 0.0 /100WBC Nucleated RBCs # 0 K/uL Sodium 133 L (136-146) mmol/L Potassium 4.7 (3.5-5.1) mmol/L Chloride 103 (98-110) mmol/L Carbon Dioxide 21 (21-31) mmol/L BUN 29 H (6.0-23.0) mg/dL Creatinine 0.9 (0.6-1.5) mg/dL Est Cr Clr Drug Dosing 71.53 mL/min Estimated GFR (MDRD) > 60.0 ml/min Glucose 103 (60-110) mg/dL POC Glucose 177 H (60-110) mg/dL Calcium 7.8 L (8.8-10.8) mg/dL Magnesium 1.8 (1.5-2.3) mEq/L Total Bilirubin 0.5 (0.1-1.5) mg/dL AST 30 (5-40) IU/L ALT 24 (8-54) IU/L Alkaline Phosphatase 79 (40-150) Total Protein 4.9 L (6.0-8.0) g/dL Albumin 2.9 L (3.5-5.0) g/dL Globulin 2.0 (2.0-3.5) g/dL Albumin/Globulin Ratio 1.5 (1.3-2.8) Urine Color Urine Appearance Urine pH (5.0-8.0) Ur Specific [place] (1.001-1.035) Urine Protein (NEGATIVE) mg/dL Urine Glucose (UA) (NEGATIVE) mg/dL Urine Ketones (NEGATIVE) mg/dL Urine Occult Blood (NEGATIVE) Urine Nitrite (NEGATIVE) Urine Bilirubin (NEGATIVE) Urine Urobilinogen (<2.0) EU/dL Ur Leukocyte Esterase (NEGATIVE) Urine RBC (0-2/HPF) Urine WBC (0-5/HPF) Ur Epithelial Cells (NONE-FEW) Urine Bacteria (NEGATIVE) 10/09/16 Range/Units 06:10 WBC (4.0-11.0) K/uL RBC (4.30-5.90) M/uL Hgb (12.0-16.0) g/dL Hct (36.0-46.0) % MCV (80.0-98.0) fL MCH (27.0-32.0) pg MCHC (31.0-37.0) g/dL RDW Std Deviation (28.0-62.0) fl RDW Coeff of Mahesh (11.0-15.0) % Plt Count (150-400) K/uL MPV (7.40-12.00) fL Neut % (Auto) (48.0-80.0) % Lymph % (Auto) (16.0-40.0) % Eddy % (Auto) (0.0-15.0) % Eos % (Auto) (0.0-7.0) % Baso % (Auto) (0.0-1.5) % Neut # (Auto) (1.4-5.7) K/uL Lymph # (Auto) (0.6-2.4) K/uL Eddy # (Auto) (0.0-0.8) K/uL Eos # (Auto) (0.0-0.7) K/uL Baso # (Auto) (0.0-0.1) K/uL Nucleated RBC % /100WBC Nucleated RBCs # K/uL Sodium (136-146) mmol/L Potassium (3.5-5.1) mmol/L Chloride (98-110) mmol/L Carbon Dioxide (21-31) mmol/L BUN (6.0-23.0) mg/dL Creatinine (0.6-1.5) mg/dL Est Cr Clr Drug Dosing mL/min Estimated GFR (MDRD) ml/min Glucose (60-110) mg/dL POC Glucose 114 H (60-110) mg/dL Calcium (8.8-10.8) mg/dL Magnesium (1.5-2.3) mEq/L Total Bilirubin (0.1-1.5) mg/dL AST (5-40) IU/L ALT (8-54) IU/L Alkaline Phosphatase (40-150) Total Protein (6.0-8.0) g/dL Albumin (3.5-5.0) g/dL Globulin (2.0-3.5) g/dL Albumin/Globulin Ratio (1.3-2.8) Urine Color Urine Appearance Urine pH (5.0-8.0) Ur Specific [place] (1.001-1.035) Urine Protein (NEGATIVE) mg/dL Urine Glucose (UA) (NEGATIVE) mg/dL Urine Ketones (NEGATIVE) mg/dL Urine Occult Blood (NEGATIVE) Urine Nitrite (NEGATIVE) Urine Bilirubin (NEGATIVE) Urine Urobilinogen (<2.0) EU/dL Ur Leukocyte Esterase (NEGATIVE) Urine RBC (0-2/HPF) Urine WBC (0-5/HPF) Ur Epithelial Cells (NONE-FEW) Urine Bacteria (NEGATIVE) Med Orders - Current: Current Medications Acetaminophen (Tylenol Extra Strength) 1,000 mg PO Q6H PRN PRN Reason: Pain Last Admin: 10/06/16 12:05 Dose: 1,000 mg Hydrocodone Bitart/Acetaminophen ([place] 325-10 Mg) 1 - 2 tab PO Q4H PRN PRN Reason: Pain Last Admin: 10/09/16 00:14 Dose: 2 tab Diphenhydramine HCl (Benadryl) 25 mg PO Q6H PRN PRN Reason: Itching Last Admin: 10/08/16 21:25 Dose: 25 mg Docusate Sodium (Colace) 100 mg PO BID NILE Last Admin: 10/09/16 08:01 Dose: 100 mg Hydromorphone HCl (Dilaudid) 1 mg IVPUSH Q2H PRN PRN Reason: Pain (severe 7-10) Last Admin: 10/09/16 02:58 Dose: 1 mg Pantoprazole Sodium 40 mg/ (Sodium Chloride) 10 mls @ 300 mls/hr IVPUSH Q12H [facility] Last Admin: 10/08/16 21:51 Dose: 300 mls/hr Prochlorperazine Edisylate 5 (mg/ Sodium Chloride) 51 mls @ 150 mls/hr IV Q6H PRN PRN Reason: Nausea/Vomiting Last Admin: 10/07/16 05:55 Dose: 150 mls/hr Sodium Chloride (Normal Saline) 1,000 mls @ 125 mls/hr IV ASDIRECTED [facility] Last Admin: 10/09/16 00:50 Dose: 125 mls/hr Levofloxacin/Dextrose 750 mg/ (Premix) 150 mls @ 100 mls/hr IV Q24H [facility] Last Admin: 10/08/16 10:20 Dose: 100 mls/hr Insulin Aspart (Novolog) 0 unit SUBCUT QIDACANDBED [facility] PRN Reason: Protocol Last Admin: 10/09/16 06:46 Dose: Not Given Insulin Glargine (Lantus Solostar) 30 units SUBCUT DAILY [facility] Last Admin: 10/09/16 08:02 Dose: 30 units Lorazepam (Ativan) 0 mg IVPUSH Q4H PRN; Protocol PRN Reason: Anxiety Multivit/Ca Carb/B Cmplx/FA/Prenat (Renal Caps Softgel) 1 cap PO DAILY [facility] Last Admin: 10/09/16 08:02 Dose: 1 cap Ondansetron HCl (Zofran) 4 mg IVPUSH Q4H PRN PRN Reason: Nausea Last Admin: 10/06/16 11:51 Dose: 4 mg Polyethylene Glycol (Miralax) 17 gm PO ONETIME PRN PRN Reason: Constipation Last Admin: 10/09/16 08:01 Dose: 17 gm Rivaroxaban (Xarelto) 10 mg PO DAILY [facility] Last Admin: 10/09/16 08:01 Dose: 10 mg Sodium Chloride (Saline Flush) 10 ml FLUSH ASDIRECTED PRN PRN Reason: Keep Vein Open Sodium Chloride (Saline Flush) 2.5 ml FLUSH ASDIRECTED PRN PRN Reason: Keep Vein Open Thiamine HCl (Vitamin B-1) 100 mg PO BEDTIME [facility] Last Admin: 10/08/16 21:25 Dose: 100 mg Discontinued Medications Diphenhydramine HCl (Benadryl) 25 mg IVPUSH ONETIME ONE Stop: 10/07/16 08:57 Last Admin: 10/07/16 09:19 Dose: 25 mg Fentanyl (Sublimaze) Confirm Administered Dose 100 mcg .ROUTE .STK-MED ONE Stop: 10/06/16 07:24 Furosemide (Lasix) 40 mg IVPUSH NOW ONE Stop: 10/06/16 21:27 Last Admin: 10/06/16 21:58 Dose: 40 mg Hydromorphone HCl (Dilaudid) 1 mg IVPUSH ONETIME ONE Stop: 10/04/16 23:45 Last Admin: 10/05/16 00:06 Dose: 1 mg Sodium Chloride (Normal Saline) 1,000 mls @ 125 mls/hr IV STAT [facility] Last Infusion: 10/05/16 12:56 Dose: 100 mls/hr Multivitamins/Minerals 10 ml/Thiamine HCl 100 mg/ Folic Acid 1 mg/ Sodium Chloride 1,011.2 mls @ 125 mls/hr IV DAILY ONE Stop: 10/05/16 08:42 Last Admin: 10/05/16 01:24 Dose: 125 mls/hr Vancomycin HCl 1 gm/ Sodium (Chloride) 250 mls @ 167 mls/hr IV ONETIME ONE Stop: 10/06/16 08:29 Last Admin: 10/06/16 07:00 Dose: 167 mls/hr Sodium Chloride (Normal Saline) 1,000 mls @ 100 mls/hr IV ASDIRECTED [facility] Last Admin: 10/06/16 03:14 Dose: 100 mls/hr Pantoprazole Sodium 40 mg/ (Sodium Chloride) 10 mls @ 300 mls/hr IVPUSH NOW ONE Stop: 10/05/16 12:46 Last Admin: 10/05/16 13:18 Dose: 300 mls/hr Vancomycin HCl 1 gm/ Sodium (Chloride) 250 mls @ 166.667 mls/hr IV ONETIME ONE Stop: 10/07/16 08:29 Vancomycin HCl 1 gm/ Sodium (Chloride) 250 mls @ 166.667 mls/hr IV ONETIME ONE Stop: 10/06/16 11:59 Vancomycin HCl 1 gm/ Sodium (Chloride) 250 mls @ 166.667 mls/hr IV ONETIME ONE Stop: 10/07/16 08:29 Last Admin: 10/07/16 06:16 Dose: 166.667 mls/hr Lactated Ringer's (Ringers, Lactated) 1,000 mls @ 125 mls/hr IV ASDIRECTED [facility] Last Admin: 10/06/16 19:02 Dose: 125 mls/hr Prochlorperazine Edisylate 5 (mg/ Sodium Chloride) 51 mls @ 150 mls/hr IV Q6H PRN PRN Reason: Nausea/Vomiting Multivitamins/Minerals 10 ml/Thiamine HCl 100 mg/ Folic Acid 1 mg/ Sodium Chloride 1,011.2 mls @ 100 mls/hr IV ONETIME ONE Stop: 10/07/16 06:49 Last Admin: 10/06/16 21:27 Dose: 100 mls/hr Magnesium Sulfate 4 gm/ Premix 100 mls @ 50 mls/hr IV ONETIME ONE Stop: 10/07/16 09:57 Last Admin: 10/07/16 08:30 Dose: 50 mls/hr Sodium Chloride (Normal Saline) 500 mls @ 500 mls/hr IV .BOLUS ONE Stop: 10/08/16 04:33 Last Admin: 10/08/16 04:03 Dose: 500 mls/hr Sodium Chloride (Normal Saline) 1,000 mls @ 125 mls/hr IV ASDIRECTED [facility] Ceftriaxone Sodium/Dextrose 1 (gm/ Premix) 50 mls @ 100 mls/hr IV Q24H [facility] Last Admin: 10/08/16 11:57 Dose: 100 mls/hr Insulin Aspart (Novolog) 0 unit SUBCUT Q6H [facility] PRN Reason: Protocol Last Admin: 10/05/16 06:47 Dose: Not Given Insulin Aspart (Novolog) 10 unit SUBCUT NOW ONE Stop: 10/07/16 12:11 Last Admin: 10/07/16 12:41 Dose: Not Given Insulin Human Regular (Novolin R) 10 unit IVPUSH ONETIME ONE PRN Reason: Protocol Stop: 10/07/16 12:10 Last Admin: 10/07/16 12:43 Dose: 10 units Midazolam HCl (Versed 1 Mg/Ml) Confirm Administered Dose 2 mg .ROUTE .STK-MED ONE Stop: 10/06/16 07:24 Ondansetron HCl (Zofran) 4 mg IVPUSH ONETIME ONE Stop: 10/04/16 23:45 Last Admin: 10/05/16 00:06 Dose: 4 mg Ondansetron HCl (Zofran) Confirm Administered Dose 4 mg .ROUTE .STK-MED ONE Stop: 10/06/16 07:23 Phenylephrine HCl (Ramiro-Synephrine) Confirm Administered Dose 10 mg .ROUTE .STK- MED ONE Stop: 10/06/16 08:42 Propofol (Diprivan 20 Ml) Confirm Administered Dose 1,200 mg .ROUTE .STK-MED ONE Stop: 10/06/16 07:24 Scopolamine (Transderm-Scop) Confirm Administered Dose 1.5 mg .ROUTE .STK-MED ONE Stop: 10/06/16 07:46 - Problem List & Annotations (1) Intertrochanteric fracture, hip SNOMED Code(s): 638114145 Code(s): S72.143A - DISPLACED INTERTROCHANTERIC FRACTURE OF UNSP FEMUR, INIT Status: Acute Priority: High Current Visit: Yes - My Orders Last 24 Hours: Active Orders 24 hr Category Date Time Status DC Bo Catheter [Urinary Catheter Removal] [RC] Per Care 10/09/16 08:00 Active Unit Routine Remove Bo Catheter [Urinary Catheter Removal] [RC] Care 10/08/16 08:37 Inactive Per Unit Routine CULTURE URINE [RM] Routine Lab 10/09/16 08:05 Received RED BLOOD CELLS LP [BBK] Routine Lab 10/09/16 08:07 Ordered TYPE AND SCREEN [BBK] Routine Lab 10/09/16 08:07 Ordered Docusate Sodium [Colace] Med 10/08/16 21:00 Active 100 mg PO BID Levofloxacin/Dextrose 5%-Water [Levaquin in D5W 750 MG/ Med 10/08/16 09:45 Active 150 ML] 750 mg Premix Bag 1 bag IV Q24H Polyethylene Glycol 3350 [MiraLAX] Med 10/08/16 17:59 Active 17 gm PO ONETIME PRN diphenhydrAMINE [Benadryl] Med 10/08/16 08:45 Active 25 mg PO Q6H PRN Transfuse Red Blood Cells [COMM] Routine Oth 10/09/16 08:08 Ordered Medication Orders Acetaminophen (Tylenol Extra Strength) 1,000 mg PO Q6H PRN PRN Reason: Pain Last Admin: 10/06/16 12:05 Dose: 1,000 mg Admin: 10/05/16 13:38 Dose: 1,000 mg Hydrocodone Bitart/Acetaminophen ([place] 325-10 Mg) 1 - 2 tab PO Q4H PRN PRN Reason: Pain Last Admin: 10/09/16 00:14 Dose: 2 tab Admin: 10/08/16 17:17 Dose: 2 tab Admin: 10/08/16 08:48 Dose: 2 tab Admin: 10/08/16 01:52 Dose: 2 tab Admin: 10/07/16 15:18 Dose: 2 tab Admin: 10/07/16 10:12 Dose: 2 tab Admin: 10/07/16 05:50 Dose: 2 tab Admin: 10/06/16 20:59 Dose: 2 tab Admin: 10/06/16 14:17 Dose: 2 tab Diphenhydramine HCl (Benadryl) 25 mg PO Q6H PRN PRN Reason: Itching Last Admin: 10/08/16 21:25 Dose: 25 mg Docusate Sodium (Colace) 100 mg PO BID [facility] Last Admin: 10/09/16 08:01 Dose: 100 mg Admin: 10/08/16 21:25 Dose: 100 mg Hydromorphone HCl (Dilaudid) 1 mg IVPUSH Q2H PRN PRN Reason: Pain (severe 7-10) Last Admin: 10/09/16 02:58 Dose: 1 mg Admin: 10/08/16 11:58 Dose: 1 mg Admin: 10/08/16 04:53 Dose: 1 mg Admin: 10/06/16 13:05 Dose: 1 mg Admin: 10/06/16 06:07 Dose: 1 mg Admin: 10/06/16 02:32 Dose: 1 mg Admin: 10/05/16 21:35 Dose: 1 mg Admin: 10/05/16 13:48 Dose: 1 mg Admin: 10/05/16 10:33 Dose: 1 mg Admin: 10/05/16 04:22 Dose: 1 mg Admin: 10/05/16 02:21 Dose: 1 mg Pantoprazole Sodium 40 mg/ (Sodium Chloride) 10 mls @ 300 mls/hr IVPUSH Q12H [facility] Last Admin: 10/08/16 21:51 Dose: 300 mls/hr Infusion: 10/08/16 10:21 Dose: 300 mls/hr Admin: 10/08/16 10:19 Dose: 300 mls/hr Infusion: 10/07/16 21:09 Dose: 300 mls/hr Admin: 10/07/16 21:07 Dose: 300 mls/hr Infusion: 10/07/16 09:37 Dose: 300 mls/hr Admin: 10/07/16 09:35 Dose: 300 mls/hr Infusion: 10/06/16 21:09 Dose: 300 mls/hr Admin: 10/06/16 21:07 Dose: 300 mls/hr Infusion: 10/06/16 10:51 Dose: 300 mls/hr Admin: 10/06/16 10:49 Dose: 300 mls/hr Infusion: 10/05/16 21:25 Dose: 300 mls/hr Admin: 10/05/16 21:23 Dose: 300 mls/hr Prochlorperazine Edisylate 5 (mg/ Sodium Chloride) 51 mls @ 150 mls/hr IV Q6H PRN PRN Reason: Nausea/Vomiting Last Admin: 10/07/16 05:55 Dose: 150 mls/hr Infusion: 10/06/16 14:18 Dose: 150 mls/hr Admin: 10/06/16 13:57 Dose: 150 mls/hr Sodium Chloride (Normal Saline) 1,000 mls @ 125 mls/hr IV ASDIRECTED [facility] Last Admin: 10/09/16 00:50 Dose: 125 mls/hr Infusion: 10/09/16 00:50 Dose: 125 mls/hr Admin: 10/08/16 16:59 Dose: 125 mls/hr Infusion: 10/08/16 13:29 Dose: 125 mls/hr Admin: 10/08/16 05:29 Dose: 125 mls/hr Levofloxacin/Dextrose 750 mg/ (Premix) 150 mls @ 100 mls/hr IV Q24H [facility] Last Admin: 10/08/16 10:20 Dose: 100 mls/hr Insulin Aspart (Novolog) 0 unit SUBCUT QIDACANDBED [facility] PRN Reason: Protocol Last Admin: 10/09/16 06:46 Dose: Admin: 10/08/16 21:35 Dose: 2 units Admin: 10/08/16 17:12 Dose: Admin: 10/08/16 12:16 Dose: 4 units Admin: 10/08/16 07:27 Dose: 6 units Admin: 10/07/16 21:09 Dose: 10 units Admin: 10/07/16 17:04 Dose: 10 units Admin: 10/07/16 12:11 Dose: 10 units Admin: 10/07/16 07:42 Dose: 8 units Admin: 10/06/16 21:05 Dose: 6 units Admin: 10/06/16 18:17 Dose: 4 units Admin: 10/06/16 11:23 Dose: 4 units Admin: 10/06/16 07:24 Dose: 6 units Admin: 10/05/16 21:22 Dose: 4 units Admin: 10/05/16 17:09 Dose: 2 units Admin: 10/05/16 10:57 Dose: 2 units Insulin Glargine (Lantus Solostar) 30 units SUBCUT DAILY [facility] Last Admin: 10/09/16 08:02 Dose: 30 units Admin: 10/08/16 08:49 Dose: 30 units Admin: 10/07/16 08:44 Dose: 30 units Lorazepam (Ativan) 0 mg IVPUSH Q4H PRN; Protocol PRN Reason: Anxiety Multivit/Ca Carb/B Cmplx/FA/Prenat (Renal Caps Softgel) 1 cap PO DAILY [facility] Last Admin: 10/09/16 08:02 Dose: 1 cap Admin: 10/08/16 08:49 Dose: 1 cap Admin: 10/07/16 09:39 Dose: 1 cap Ondansetron HCl (Zofran) 4 mg IVPUSH Q4H PRN PRN Reason: Nausea Last Admin: 10/06/16 11:51 Dose: 4 mg Admin: 10/05/16 16:52 Dose: 4 mg Admin: 10/05/16 10:53 Dose: 4 mg Admin: 10/05/16 04:32 Dose: 4 mg Polyethylene Glycol (Miralax) 17 gm PO ONETIME PRN PRN Reason: Constipation Last Admin: 10/09/16 08:01 Dose: 17 gm Rivaroxaban (Xarelto) 10 mg PO DAILY [facility] Last Admin: 10/09/16 08:01 Dose: 10 mg Admin: 10/08/16 08:48 Dose: 10 mg Admin: 10/07/16 08:32 Dose: 10 mg Sodium Chloride (Saline Flush) 10 ml FLUSH ASDIRECTED PRN PRN Reason: Keep Vein Open Sodium Chloride (Saline Flush) 2.5 ml FLUSH ASDIRECTED PRN PRN Reason: Keep Vein Open Thiamine HCl (Vitamin B-1) 100 mg PO BEDTIME [facility] Last Admin: 10/08/16 21:25 Dose: 100 mg Admin: 10/07/16 21:07 Dose: 100 mg
[2016-10-09] MEDS: Levofloxacin/Dextrose 5%-Water 750 MG in Premix Bag 1 BAG IV SCH (09:53)
[2016-10-09] MEDS: Pantoprazole 40 MG in Sodium Chloride 0.9% 10 ML IVPUSH SCH (09:53)
--- NOTE | 2016-10-09 10:10 | PCM.PN ---
<Jeb Aguilar - Last Filed: 10/09/16 10:05> - General Info Date of Service: 10/09/16 Admission Dx/Problem (Free Text): Right hip Fracture Subjective Update: Having "achy" pain in right hip but has been up and pain is controlled. No fevers. Norris in place which we will remove today. No chest pain, palpitations or sob. Somewhat nervous to go home but does have home health as well as family help at home. Functional Status: Reports: pain controlled, tolerating diet - Review of Systems General: Denies: Fever, Weakness, Fatigue HEENT: Denies: visual changes Pulmonary: Denies: shortness of breath, wheezing Cardiovascular: Denies: Chest Pain, Palpitations Gastrointestinal: Denies: Abdominal pain, Constipation, Nausea, Vomiting Genitourinary: Denies: dysuria, hematuria Musculoskeletal: Denies: neck pain, leg pain Skin: Denies: cyanosis Neurological: Denies: Confusion, Dizziness, Headache Psychiatric: Denies: confusion - Patient Data Vitals - most recent: Last Vital Signs Temp 37.4 C 10/09/16 04:00 Pulse 90 10/09/16 04:00 Resp 18 10/09/16 04:00 BP 131/62 10/09/16 04:00 Pulse Ox 96 10/09/16 04:00 Weight - most recent: 75 kg I&O - last 24 hours: Intake & Output 10/08/16 10/09/16 10/09/16 22:59 06:59 14:59 Intake Total 1560 2529 Output Total 200 570 Balance 1360 1959 Lab Results last 24 hrs: Laboratory Results - last 24 hr 10/08/16 10/08/16 10/08/16 Range/Units 11:32 17:11 21:33 WBC (4.0-11.0) K/uL RBC (4.30-5.90) M/uL Hgb (12.0-16.0) g/dL Hct (36.0-46.0) % MCV (80.0-98.0) fL MCH (27.0-32.0) pg MCHC (31.0-37.0) g/dL RDW Std Deviation (28.0-62.0) fl RDW Coeff of Mahesh (11.0-15.0) % Plt Count (150-400) K/uL MPV (7.40-12.00) fL Neut % (Auto) (48.0-80.0) % Lymph % (Auto) (16.0-40.0) % [place] % (Auto) (0.0-15.0) % Eos % (Auto) (0.0-7.0) % Baso % (Auto) (0.0-1.5) % Neut # (Auto) (1.4-5.7) K/uL Lymph # (Auto) (0.6-2.4) K/uL [place] # (Auto) (0.0-0.8) K/uL Eos # (Auto) (0.0-0.7) K/uL Baso # (Auto) (0.0-0.1) K/uL Nucleated RBC % /100WBC Nucleated RBCs # K/uL Sodium (136-146) mmol/L Potassium (3.5-5.1) mmol/L Chloride (98-110) mmol/L Carbon Dioxide (21-31) mmol/L BUN (6.0-23.0) mg/dL Creatinine (0.6-1.5) mg/dL Est Cr Clr Drug Dosing mL/min Estimated GFR (MDRD) ml/min Glucose (60-110) mg/dL POC Glucose 211 H 135 H 177 H (60-110) mg/dL Calcium (8.8-10.8) mg/dL Magnesium (1.5-2.3) mEq/L Total Bilirubin (0.1-1.5) mg/dL AST (5-40) IU/L ALT (8-54) IU/L Alkaline Phosphatase (40-150) Total Protein (6.0-8.0) g/dL Albumin (3.5-5.0) g/dL Globulin (2.0-3.5) g/dL Albumin/Globulin Ratio (1.3-2.8) Blood Type Antibody Screen Crossmatch 10/09/16 10/09/16 10/09/16 Range/Units 04:45 04:45 06:10 WBC 12.61 H (4.0-11.0) K/uL RBC 2.61 L (4.30-5.90) M/uL Hgb 7.9 L (12.0-16.0) g/dL Hct 24.0 L (36.0-46.0) % MCV 92.0 (80.0-98.0) fL MCH 30.3 (27.0-32.0) pg MCHC 32.9 (31.0-37.0) g/dL RDW Std Deviation 42.7 (28.0-62.0) fl RDW Coeff of Mahesh 13 (11.0-15.0) % Plt Count 243 (150-400) K/uL MPV 10.40 (7.40-12.00) fL Neut % (Auto) 72.3 (48.0-80.0) % Lymph % (Auto) 13.1 L (16.0-40.0) % [place] % (Auto) 10.5 (0.0-15.0) % Eos % (Auto) 3.9 (0.0-7.0) % Baso % (Auto) 0.2 (0.0-1.5) % Neut # (Auto) 9.1 H (1.4-5.7) K/uL Lymph # (Auto) 1.7 (0.6-2.4) K/uL [place] # (Auto) 1.3 H (0.0-0.8) K/uL Eos # (Auto) 0.5 (0.0-0.7) K/uL Baso # (Auto) 0.0 (0.0-0.1) K/uL Nucleated RBC % 0.0 /100WBC Nucleated RBCs # 0 K/uL Sodium 133 L (136-146) mmol/L Potassium 4.7 (3.5-5.1) mmol/L Chloride 103 (98-110) mmol/L Carbon Dioxide 21 (21-31) mmol/L BUN 29 H (6.0-23.0) mg/dL Creatinine 0.9 (0.6-1.5) mg/dL Est Cr Clr Drug Dosing 71.53 mL/min Estimated GFR (MDRD) > 60.0 ml/min Glucose 103 (60-110) mg/dL POC Glucose 114 H (60-110) mg/dL Calcium 7.8 L (8.8-10.8) mg/dL Magnesium 1.8 (1.5-2.3) mEq/L Total Bilirubin 0.5 (0.1-1.5) mg/dL AST 30 (5-40) IU/L ALT 24 (8-54) IU/L Alkaline Phosphatase 79 (40-150) Total Protein 4.9 L (6.0-8.0) g/dL Albumin 2.9 L (3.5-5.0) g/dL Globulin 2.0 (2.0-3.5) g/dL Albumin/Globulin Ratio 1.5 (1.3-2.8) Blood Type Antibody Screen Crossmatch 10/09/16 Range/Units 08:45 WBC (4.0-11.0) K/uL RBC (4.30-5.90) M/uL Hgb (12.0-16.0) g/dL Hct (36.0-46.0) % MCV (80.0-98.0) fL MCH (27.0-32.0) pg MCHC (31.0-37.0) g/dL RDW Std Deviation (28.0-62.0) fl RDW Coeff of Mahesh (11.0-15.0) % Plt Count (150-400) K/uL MPV (7.40-12.00) fL Neut % (Auto) (48.0-80.0) % Lymph % (Auto) (16.0-40.0) % [place] % (Auto) (0.0-15.0) % Eos % (Auto) (0.0-7.0) % Baso % (Auto) (0.0-1.5) % Neut # (Auto) (1.4-5.7) K/uL Lymph # (Auto) (0.6-2.4) K/uL [place] # (Auto) (0.0-0.8) K/uL Eos # (Auto) (0.0-0.7) K/uL Baso # (Auto) (0.0-0.1) K/uL Nucleated RBC % /100WBC Nucleated RBCs # K/uL Sodium (136-146) mmol/L Potassium (3.5-5.1) mmol/L Chloride (98-110) mmol/L Carbon Dioxide (21-31) mmol/L BUN (6.0-23.0) mg/dL Creatinine (0.6-1.5) mg/dL Est Cr Clr Drug Dosing mL/min Estimated GFR (MDRD) ml/min Glucose (60-110) mg/dL POC Glucose (60-110) mg/dL Calcium (8.8-10.8) mg/dL Magnesium (1.5-2.3) mEq/L Total Bilirubin (0.1-1.5) mg/dL AST (5-40) IU/L ALT (8-54) IU/L Alkaline Phosphatase (40-150) Total Protein (6.0-8.0) g/dL Albumin (3.5-5.0) g/dL Globulin (2.0-3.5) g/dL Albumin/Globulin Ratio (1.3-2.8) Blood Type O POSITIVE Antibody Screen NEGATIVE Crossmatch See Detail Med Orders - Current: Current Medications Acetaminophen (Tylenol Extra Strength) 1,000 mg PO Q6H PRN PRN Reason: Pain Last Admin: 10/06/16 12:05 Dose: 1,000 mg Hydrocodone Bitart/Acetaminophen (Lamont 325-10 Mg) 1 - 2 tab PO Q4H PRN PRN Reason: Pain Last Admin: 10/09/16 00:14 Dose: 2 tab Diphenhydramine HCl (Benadryl) 25 mg PO Q6H PRN PRN Reason: Itching Last Admin: 10/08/16 21:25 Dose: 25 mg Docusate Sodium (Colace) 100 mg PO BID [facility] Last Admin: 10/09/16 08:01 Dose: 100 mg Hydromorphone HCl (Dilaudid) 1 mg IVPUSH Q2H PRN PRN Reason: Pain (severe 7-10) Last Admin: 10/09/16 02:58 Dose: 1 mg Pantoprazole Sodium 40 mg/ (Sodium Chloride) 10 mls @ 300 mls/hr IVPUSH Q12H [facility] Last Admin: 10/09/16 09:53 Dose: 300 mls/hr Prochlorperazine Edisylate 5 (mg/ Sodium Chloride) 51 mls @ 150 mls/hr IV Q6H PRN PRN Reason: Nausea/Vomiting Last Admin: 10/07/16 05:55 Dose: 150 mls/hr Sodium Chloride (Normal Saline) 1,000 mls @ 125 mls/hr IV ASDIRECTED [facility] Last Admin: 10/09/16 00:50 Dose: 125 mls/hr Levofloxacin/Dextrose 750 mg/ (Premix) 150 mls @ 100 mls/hr IV Q24H [facility] Last Admin: 10/09/16 09:53 Dose: 100 mls/hr Insulin Aspart (Novolog) 0 unit SUBCUT QIDACANDBED [facility] PRN Reason: Protocol Last Admin: 10/09/16 06:46 Dose: Not Given Insulin Glargine (Lantus Solostar) 30 units SUBCUT DAILY [facility] Last Admin: 10/09/16 08:02 Dose: 30 units Lorazepam (Ativan) 0 mg IVPUSH Q4H PRN; Protocol PRN Reason: Anxiety Multivit/Ca Carb/B Cmplx/FA/Prenat (Renal Caps Softgel) 1 cap PO DAILY [facility] Last Admin: 10/09/16 08:02 Dose: 1 cap Ondansetron HCl (Zofran) 4 mg IVPUSH Q4H PRN PRN Reason: Nausea Last Admin: 10/06/16 11:51 Dose: 4 mg Polyethylene Glycol (Miralax) 17 gm PO ONETIME PRN PRN Reason: Constipation Last Admin: 10/09/16 08:01 Dose: 17 gm Rivaroxaban (Xarelto) 10 mg PO DAILY [facility] Last Admin: 10/09/16 08:01 Dose: 10 mg Sodium Chloride (Saline Flush) 10 ml FLUSH ASDIRECTED PRN PRN Reason: Keep Vein Open Sodium Chloride (Saline Flush) 2.5 ml FLUSH ASDIRECTED PRN PRN Reason: Keep Vein Open Thiamine HCl (Vitamin B-1) 100 mg PO BEDTIME [facility] Last Admin: 10/08/16 21:25 Dose: 100 mg Discontinued Medications Diphenhydramine HCl (Benadryl) 25 mg IVPUSH ONETIME ONE Stop: 10/07/16 08:57 Last Admin: 10/07/16 09:19 Dose: 25 mg Fentanyl (Sublimaze) Confirm Administered Dose 100 mcg .ROUTE .STK-MED ONE Stop: 10/06/16 07:24 Furosemide (Lasix) 40 mg IVPUSH NOW ONE Stop: 10/06/16 21:27 Last Admin: 10/06/16 21:58 Dose: 40 mg Hydromorphone HCl (Dilaudid) 1 mg IVPUSH ONETIME ONE Stop: 10/04/16 23:45 Last Admin: 10/05/16 00:06 Dose: 1 mg Sodium Chloride (Normal Saline) 1,000 mls @ 125 mls/hr IV STAT [facility] Last Infusion: 10/05/16 12:56 Dose: 100 mls/hr Multivitamins/Minerals 10 ml/Thiamine HCl 100 mg/ Folic Acid 1 mg/ Sodium Chloride 1,011.2 mls @ 125 mls/hr IV DAILY ONE Stop: 10/05/16 08:42 Last Admin: 10/05/16 01:24 Dose: 125 mls/hr Vancomycin HCl 1 gm/ Sodium (Chloride) 250 mls @ 167 mls/hr IV ONETIME ONE Stop: 10/06/16 08:29 Last Admin: 10/06/16 07:00 Dose: 167 mls/hr Sodium Chloride (Normal Saline) 1,000 mls @ 100 mls/hr IV ASDIRECTED [facility] Last Admin: 10/06/16 03:14 Dose: 100 mls/hr Pantoprazole Sodium 40 mg/ (Sodium Chloride) 10 mls @ 300 mls/hr IVPUSH NOW ONE Stop: 10/05/16 12:46 Last Admin: 10/05/16 13:18 Dose: 300 mls/hr Vancomycin HCl 1 gm/ Sodium (Chloride) 250 mls @ 166.667 mls/hr IV ONETIME ONE Stop: 10/07/16 08:29 Vancomycin HCl 1 gm/ Sodium (Chloride) 250 mls @ 166.667 mls/hr IV ONETIME ONE Stop: 10/06/16 11:59 Vancomycin HCl 1 gm/ Sodium (Chloride) 250 mls @ 166.667 mls/hr IV ONETIME ONE Stop: 10/07/16 08:29 Last Admin: 10/07/16 06:16 Dose: 166.667 mls/hr Lactated Ringer's (Ringers, Lactated) 1,000 mls @ 125 mls/hr IV ASDIRECTED [facility] Last Admin: 10/06/16 19:02 Dose: 125 mls/hr Prochlorperazine Edisylate 5 (mg/ Sodium Chloride) 51 mls @ 150 mls/hr IV Q6H PRN PRN Reason: Nausea/Vomiting Multivitamins/Minerals 10 ml/Thiamine HCl 100 mg/ Folic Acid 1 mg/ Sodium Chloride 1,011.2 mls @ 100 mls/hr IV ONETIME ONE Stop: 10/07/16 06:49 Last Admin: 10/06/16 21:27 Dose: 100 mls/hr Magnesium Sulfate 4 gm/ Premix 100 mls @ 50 mls/hr IV ONETIME ONE Stop: 10/07/16 09:57 Last Admin: 10/07/16 08:30 Dose: 50 mls/hr Sodium Chloride (Normal Saline) 500 mls @ 500 mls/hr IV .BOLUS ONE Stop: 10/08/16 04:33 Last Admin: 10/08/16 04:03 Dose: 500 mls/hr Sodium Chloride (Normal Saline) 1,000 mls @ 125 mls/hr IV ASDIRECTED NILE Ceftriaxone Sodium/Dextrose 1 (gm/ Premix) 50 mls @ 100 mls/hr IV Q24H [facility] Last Admin: 10/08/16 11:57 Dose: 100 mls/hr Insulin Aspart (Novolog) 0 unit SUBCUT Q6H [facility] PRN Reason: Protocol Last Admin: 10/05/16 06:47 Dose: Not Given Insulin Aspart (Novolog) 10 unit SUBCUT NOW ONE Stop: 10/07/16 12:11 Last Admin: 10/07/16 12:41 Dose: Not Given Insulin Human Regular (Novolin R) 10 unit IVPUSH ONETIME ONE PRN Reason: Protocol Stop: 10/07/16 12:10 Last Admin: 10/07/16 12:43 Dose: 10 units Midazolam HCl (Versed 1 Mg/Ml) Confirm Administered Dose 2 mg .ROUTE .STK-MED ONE Stop: 10/06/16 07:24 Ondansetron HCl (Zofran) 4 mg IVPUSH ONETIME ONE Stop: 10/04/16 23:45 Last Admin: 10/05/16 00:06 Dose: 4 mg Ondansetron HCl (Zofran) Confirm Administered Dose 4 mg .ROUTE .STK-MED ONE Stop: 10/06/16 07:23 Phenylephrine HCl (Ramiro-Synephrine) Confirm Administered Dose 10 mg .ROUTE .STK- MED ONE Stop: 10/06/16 08:42 Propofol (Diprivan 20 Ml) Confirm Administered Dose 1,200 mg .ROUTE .STK-MED ONE Stop: 10/06/16 07:24 Scopolamine (Transderm-Scop) Confirm Administered Dose 1.5 mg .ROUTE .STK-MED ONE Stop: 10/06/16 07:46 - Exam Quality Assessment: DVT prophylaxis General: alert, oriented, cooperative, no acute distress HEENT: Pupils equal, Pupils reactive, EOMI, Mucous membr. moist/pink Neck: supple Lungs: Clear to auscultation, Normal respiratory effort Cardiovascular: Regular Rate, Regular Rhythm Abdomen: bowel sounds present, soft, no tenderness, no distension Back Exam: Normal Inspection Extremities: normal pulses, no tenderness/swelling, edema (mild) Peripheral Pulses: 2+: Radial (L), Radial (R), Posterior Tibial (L), Posterior Tibial (R), Dorsalis Pedis (L), Dorsalis Pedis (R) Skin: warm, dry, intact Neurological: no new focal deficit Psy/Mental Status: alert, normal affect, normal mood - Problem List & Annotations (1) Alcohol withdrawal SNOMED Code(s): 483993453 Code(s): F10.239 - ALCOHOL DEPENDENCE WITH WITHDRAWAL, UNSPECIFIED Status: Suspected Priority: High Current Visit: Yes Qualifiers: Complication of substance-induced condition: uncomplicated Qualified Code(s ): F10.230 - Alcohol dependence with withdrawal, uncomplicated (2) Diabetes mellitus SNOMED Code(s): 56177927 Code(s): E11.9 - TYPE 2 DIABETES MELLITUS WITHOUT COMPLICATIONS Status: Chronic Priority: Medium Current Visit: Yes Qualifiers: Diabetes mellitus type: type 2 Diabetes mellitus complication status: without complication Diabetes mellitus residential insulin use: with medical terminologist use Qualified Code(s): E11.9 - Type 2 diabetes mellitus without complications ; Z79.4 - buttermaker continuous churn (current) use of insulin (3) Intertrochanteric fracture, hip SNOMED Code(s): 425561597 Code(s): S72.143A - DISPLACED INTERTROCHANTERIC FRACTURE OF UNSP FEMUR, INIT Status: Acute Priority: High Current Visit: Yes - Problem List Review Problem List Initiated/Reviewed/Updated: Yes - My Orders Last 24 Hours: My Active Orders 10/09/16 08:00 DC Norris Catheter [Urinary Catheter Removal] [RC] Per Unit Routine 10/09/16 08:05 CULTURE URINE [RM] Routine 10/09/16 08:08 Transfuse Red Blood Cells [COMM] Routine 10/09/16 08:45 RED BLOOD CELLS LP [BBK] Routine TYPE AND SCREEN [BBK] Routine - Plan Plan:: 56 year old female with acute right hip fracture IT and acute alcohol intoxication. 1. Right hip fx: S/P closed reduction with insertion of CM nail per Ortho, 2016. Pain controlled. Upon discharge, Home care plan in place and patient has help at home. Ortho has cleared for home today when medically stable. 2. Anemia: Multifactorial, dilutional from IVF, recent surgery, and chronic from ETOH abuse. 7.9 this am will give 2 units pRBC's this am 2. Leukocytosis: Improved with Rocephin and Levaquin. UA positive for UTI. CXR negative will d/c Rocephin. Cont. Levaquin day 2 for UTI. Culture pending. 3. Dehydration: Improved will d/c IVF and encouraged to drink fluids. 4. ETOH abuse: CIWAA 0 again this am no signs of withdrawal at this time. Continue Thiamine and Folate. 5. DM: BS remain elevated, Continue Lantus and Novolog. 6.HTN:S table Continue on home meds. VTE prophylaxis: Xarelto Dispo: This evening or tomorrow pending <Thierno Yancey - Last Filed: 10/09/16 16:25> - Patient Data Vitals - most recent: Last Vital Signs Temp 99.2 F 10/09/16 14:45 Pulse 84 10/09/16 14:45 Resp 17 10/09/16 14:45 BP 140/65 10/09/16 14:45 Pulse Ox 94 L 10/09/16 14:45 I&O - last 24 hours: Intake & Output 10/09/16 10/09/16 10/09/16 06:59 14:59 22:59 Intake Total 2529 311 Output Total 570 Balance 1959 311 Lab Results last 24 hrs: Laboratory Results - last 24 hr 10/08/16 10/08/16 10/09/16 Range/Units 17:11 21:33 04:45 WBC 12.61 H (4.0-11.0) K/uL RBC 2.61 L (4.30-5.90) M/uL Hgb 7.9 L (12.0-16.0) g/dL Hct 24.0 L (36.0-46.0) % MCV 92.0 (80.0-98.0) fL MCH 30.3 (27.0-32.0) pg MCHC 32.9 (31.0-37.0) g/dL RDW Std Deviation 42.7 (28.0-62.0) fl RDW Coeff of Mahesh 13 (11.0-15.0) % Plt Count 243 (150-400) K/uL MPV 10.40 (7.40-12.00) fL Neut % (Auto) 72.3 (48.0-80.0) % Lymph % (Auto) 13.1 L (16.0-40.0) % [place] % (Auto) 10.5 (0.0-15.0) % Eos % (Auto) 3.9 (0.0-7.0) % Baso % (Auto) 0.2 (0.0-1.5) % Neut # (Auto) 9.1 H (1.4-5.7) K/uL Lymph # (Auto) 1.7 (0.6-2.4) K/uL [place] # (Auto) 1.3 H (0.0-0.8) K/uL Eos # (Auto) 0.5 (0.0-0.7) K/uL Baso # (Auto) 0.0 (0.0-0.1) K/uL Nucleated RBC % 0.0 /100WBC Nucleated RBCs # 0 K/uL Sodium (136-146) mmol/L Potassium (3.5-5.1) mmol/L Chloride (98-110) mmol/L Carbon Dioxide (21-31) mmol/L BUN (6.0-23.0) mg/dL Creatinine (0.6-1.5) mg/dL Est Cr Clr Drug Dosing mL/min Estimated GFR (MDRD) ml/min Glucose (60-110) mg/dL POC Glucose 135 H 177 H (60-110) mg/dL Calcium (8.8-10.8) mg/dL Magnesium (1.5-2.3) mEq/L Total Bilirubin (0.1-1.5) mg/dL AST (5-40) IU/L ALT (8-54) IU/L Alkaline Phosphatase (40-150) Total Protein (6.0-8.0) g/dL Albumin (3.5-5.0) g/dL Globulin (2.0-3.5) g/dL Albumin/Globulin Ratio (1.3-2.8) Blood Type Antibody Screen Crossmatch 10/09/16 10/09/16 10/09/16 Range/Units 04:45 06:10 08:45 WBC (4.0-11.0) K/uL RBC (4.30-5.90) M/uL Hgb (12.0-16.0) g/dL Hct (36.0-46.0) % MCV (80.0-98.0) fL MCH (27.0-32.0) pg MCHC (31.0-37.0) g/dL RDW Std Deviation (28.0-62.0) fl RDW Coeff of Mahesh (11.0-15.0) % Plt Count (150-400) K/uL MPV (7.40-12.00) fL Neut % (Auto) (48.0-80.0) % Lymph % (Auto) (16.0-40.0) % [place] % (Auto) (0.0-15.0) % Eos % (Auto) (0.0-7.0) % Baso % (Auto) (0.0-1.5) % Neut # (Auto) (1.4-5.7) K/uL Lymph # (Auto) (0.6-2.4) K/uL [place] # (Auto) (0.0-0.8) K/uL Eos # (Auto) (0.0-0.7) K/uL Baso # (Auto) (0.0-0.1) K/uL Nucleated RBC % /100WBC Nucleated RBCs # K/uL Sodium 133 L (136-146) mmol/L Potassium 4.7 (3.5-5.1) mmol/L Chloride 103 (98-110) mmol/L Carbon Dioxide 21 (21-31) mmol/L BUN 29 H (6.0-23.0) mg/dL Creatinine 0.9 (0.6-1.5) mg/dL Est Cr Clr Drug Dosing 71.53 mL/min Estimated GFR (MDRD) > 60.0 ml/min Glucose 103 (60-110) mg/dL POC Glucose 114 H (60-110) mg/dL Calcium 7.8 L (8.8-10.8) mg/dL Magnesium 1.8 (1.5-2.3) mEq/L Total Bilirubin 0.5 (0.1-1.5) mg/dL AST 30 (5-40) IU/L ALT 24 (8-54) IU/L Alkaline Phosphatase 79 (40-150) Total Protein 4.9 L (6.0-8.0) g/dL Albumin 2.9 L (3.5-5.0) g/dL Globulin 2.0 (2.0-3.5) g/dL Albumin/Globulin Ratio 1.5 (1.3-2.8) Blood Type O POSITIVE Antibody Screen NEGATIVE Crossmatch See Detail 10/09/16 Range/Units 11:55 WBC (4.0-11.0) K/uL RBC (4.30-5.90) M/uL Hgb (12.0-16.0) g/dL Hct (36.0-46.0) % MCV (80.0-98.0) fL MCH (27.0-32.0) pg MCHC (31.0-37.0) g/dL RDW Std Deviation (28.0-62.0) fl RDW Coeff of Mahesh (11.0-15.0) % Plt Count (150-400) K/uL MPV (7.40-12.00) fL Neut % (Auto) (48.0-80.0) % Lymph % (Auto) (16.0-40.0) % [place] % (Auto) (0.0-15.0) % Eos % (Auto) (0.0-7.0) % Baso % (Auto) (0.0-1.5) % Neut # (Auto) (1.4-5.7) K/uL Lymph # (Auto) (0.6-2.4) K/uL [place] # (Auto) (0.0-0.8) K/uL Eos # (Auto) (0.0-0.7) K/uL Baso # (Auto) (0.0-0.1) K/uL Nucleated RBC % /100WBC Nucleated RBCs # K/uL Sodium (136-146) mmol/L Potassium (3.5-5.1) mmol/L Chloride (98-110) mmol/L Carbon Dioxide (21-31) mmol/L BUN (6.0-23.0) mg/dL Creatinine (0.6-1.5) mg/dL Est Cr Clr Drug Dosing mL/min Estimated GFR (MDRD) ml/min Glucose (60-110) mg/dL POC Glucose 157 H (60-110) mg/dL Calcium (8.8-10.8) mg/dL Magnesium (1.5-2.3) mEq/L Total Bilirubin (0.1-1.5) mg/dL AST (5-40) IU/L ALT (8-54) IU/L Alkaline Phosphatase (40-150) Total Protein (6.0-8.0) g/dL Albumin (3.5-5.0) g/dL Globulin (2.0-3.5) g/dL Albumin/Globulin Ratio (1.3-2.8) Blood Type Antibody Screen Crossmatch Med Orders - Current: Current Medications Acetaminophen (Tylenol Extra Strength) 1,000 mg PO Q6H PRN PRN Reason: Pain Last Admin: 10/06/16 12:05 Dose: 1,000 mg Hydrocodone Bitart/Acetaminophen (Lamont 325-10 Mg) 1 - 2 tab PO Q4H PRN PRN Reason: Pain Last Admin: 10/09/16 14:33 Dose: 2 tab Diphenhydramine HCl (Benadryl) 25 mg PO Q6H PRN PRN Reason: Itching Last Admin: 10/08/16 21:25 Dose: 25 mg Docusate Sodium (Colace) 100 mg PO BID [facility] Last Admin: 10/09/16 08:01 Dose: 100 mg Hydromorphone HCl (Dilaudid) 1 mg IVPUSH Q2H PRN PRN Reason: Pain (severe 7-10) Last Admin: 10/09/16 02:58 Dose: 1 mg Pantoprazole Sodium 40 mg/ (Sodium Chloride) 10 mls @ 300 mls/hr IVPUSH Q12H [facility] Last Admin: 10/09/16 09:53 Dose: 300 mls/hr Prochlorperazine Edisylate 5 (mg/ Sodium Chloride) 51 mls @ 150 mls/hr IV Q6H PRN PRN Reason: Nausea/Vomiting Last Admin: 10/07/16 05:55 Dose: 150 mls/hr Sodium Chloride (Normal Saline) 1,000 mls @ 125 mls/hr IV ASDIRECTED [facility] Last Admin: 10/09/16 00:50 Dose: 125 mls/hr Levofloxacin/Dextrose 750 mg/ (Premix) 150 mls @ 100 mls/hr IV Q24H [facility] Last Admin: 10/09/16 09:53 Dose: 100 mls/hr Insulin Aspart (Novolog) 0 unit SUBCUT QIDACANDBED [facility] PRN Reason: Protocol Last Admin: 10/09/16 11:57 Dose: 2 units Insulin Glargine (Lantus Solostar) 30 units SUBCUT DAILY [facility] Last Admin: 10/09/16 08:02 Dose: 30 units Lorazepam (Ativan) 0 mg IVPUSH Q4H PRN; Protocol PRN Reason: Anxiety Multivit/Ca Carb/B Cmplx/FA/Prenat (Renal Caps Softgel) 1 cap PO DAILY [facility] Last Admin: 10/09/16 08:02 Dose: 1 cap Ondansetron HCl (Zofran) 4 mg IVPUSH Q4H PRN PRN Reason: Nausea Last Admin: 10/06/16 11:51 Dose: 4 mg Polyethylene Glycol (Miralax) 17 gm PO ONETIME PRN PRN Reason: Constipation Last Admin: 10/09/16 08:01 Dose: 17 gm Rivaroxaban (Xarelto) 10 mg PO DAILY [facility] Last Admin: 10/09/16 08:01 Dose: 10 mg Sodium Chloride (Saline Flush) 10 ml FLUSH ASDIRECTED PRN PRN Reason: Keep Vein Open Sodium Chloride (Saline Flush) 2.5 ml FLUSH ASDIRECTED PRN PRN Reason: Keep Vein Open Thiamine HCl (Vitamin B-1) 100 mg PO BEDTIME [facility] Last Admin: 10/08/16 21:25 Dose: 100 mg Discontinued Medications Diphenhydramine HCl (Benadryl) 25 mg IVPUSH ONETIME ONE Stop: 10/07/16 08:57 Last Admin: 10/07/16 09:19 Dose: 25 mg Fentanyl (Sublimaze) Confirm Administered Dose 100 mcg .ROUTE .STK-MED ONE Stop: 10/06/16 07:24 Furosemide (Lasix) 40 mg IVPUSH NOW ONE Stop: 10/06/16 21:27 Last Admin: 10/06/16 21:58 Dose: 40 mg Hydromorphone HCl (Dilaudid) 1 mg IVPUSH ONETIME ONE Stop: 10/04/16 23:45 Last Admin: 10/05/16 00:06 Dose: 1 mg Sodium Chloride (Normal Saline) 1,000 mls @ 125 mls/hr IV STAT [facility] Last Infusion: 10/05/16 12:56 Dose: 100 mls/hr Multivitamins/Minerals 10 ml/Thiamine HCl 100 mg/ Folic Acid 1 mg/ Sodium Chloride 1,011.2 mls @ 125 mls/hr IV DAILY ONE Stop: 10/05/16 08:42 Last Admin: 10/05/16 01:24 Dose: 125 mls/hr Vancomycin HCl 1 gm/ Sodium (Chloride) 250 mls @ 167 mls/hr IV ONETIME ONE Stop: 10/06/16 08:29 Last Admin: 10/06/16 07:00 Dose: 167 mls/hr Sodium Chloride (Normal Saline) 1,000 mls @ 100 mls/hr IV ASDIRECTED [facility] Last Admin: 10/06/16 03:14 Dose: 100 mls/hr Pantoprazole Sodium 40 mg/ (Sodium Chloride) 10 mls @ 300 mls/hr IVPUSH NOW ONE Stop: 10/05/16 12:46 Last Admin: 10/05/16 13:18 Dose: 300 mls/hr Vancomycin HCl 1 gm/ Sodium (Chloride) 250 mls @ 166.667 mls/hr IV ONETIME ONE Stop: 10/07/16 08:29 Vancomycin HCl 1 gm/ Sodium (Chloride) 250 mls @ 166.667 mls/hr IV ONETIME ONE Stop: 10/06/16 11:59 Vancomycin HCl 1 gm/ Sodium (Chloride) 250 mls @ 166.667 mls/hr IV ONETIME ONE Stop: 10/07/16 08:29 Last Admin: 10/07/16 06:16 Dose: 166.667 mls/hr Lactated Ringer's (Ringers, Lactated) 1,000 mls @ 125 mls/hr IV ASDIRECTED [facility] Last Admin: 10/06/16 19:02 Dose: 125 mls/hr Prochlorperazine Edisylate 5 (mg/ Sodium Chloride) 51 mls @ 150 mls/hr IV Q6H PRN PRN Reason: Nausea/Vomiting Multivitamins/Minerals 10 ml/Thiamine HCl 100 mg/ Folic Acid 1 mg/ Sodium Chloride 1,011.2 mls @ 100 mls/hr IV ONETIME ONE Stop: 10/07/16 06:49 Last Admin: 10/06/16 21:27 Dose: 100 mls/hr Magnesium Sulfate 4 gm/ Premix 100 mls @ 50 mls/hr IV ONETIME ONE Stop: 10/07/16 09:57 Last Admin: 10/07/16 08:30 Dose: 50 mls/hr Sodium Chloride (Normal Saline) 500 mls @ 500 mls/hr IV .BOLUS ONE Stop: 10/08/16 04:33 Last Admin: 10/08/16 04:03 Dose: 500 mls/hr Sodium Chloride (Normal Saline) 1,000 mls @ 125 mls/hr IV ASDIRECTED [facility] Ceftriaxone Sodium/Dextrose 1 (gm/ Premix) 50 mls @ 100 mls/hr IV Q24H [facility] Last Admin: 10/08/16 11:57 Dose: 100 mls/hr Insulin Aspart (Novolog) 0 unit SUBCUT Q6H [facility] PRN Reason: Protocol Last Admin: 10/05/16 06:47 Dose: Not Given Insulin Aspart (Novolog) 10 unit SUBCUT NOW ONE Stop: 10/07/16 12:11 Last Admin: 10/07/16 12:41 Dose: Not Given Insulin Human Regular (Novolin R) 10 unit IVPUSH ONETIME ONE PRN Reason: Protocol Stop: 10/07/16 12:10 Last Admin: 10/07/16 12:43 Dose: 10 units Midazolam HCl (Versed 1 Mg/Ml) Confirm Administered Dose 2 mg .ROUTE .STK-MED ONE Stop: 10/06/16 07:24 Ondansetron HCl (Zofran) 4 mg IVPUSH ONETIME ONE Stop: 10/04/16 23:45 Last Admin: 10/05/16 00:06 Dose: 4 mg Ondansetron HCl (Zofran) Confirm Administered Dose 4 mg .ROUTE .STK-MED ONE Stop: 10/06/16 07:23 Phenylephrine HCl (Ramiro-Synephrine) Confirm Administered Dose 10 mg .ROUTE .STK- MED ONE Stop: 10/06/16 08:42 Propofol (Diprivan 20 Ml) Confirm Administered Dose 1,200 mg .ROUTE .STK-MED ONE Stop: 10/06/16 07:24 Scopolamine (Transderm-Scop) Confirm Administered Dose 1.5 mg .ROUTE .STK-MED ONE Stop: 10/06/16 07:46 - Problem List & Annotations (1) Alcohol intoxication SNOMED Code(s): 21262412 Code(s): F10.929 - ALCOHOL USE, UNSPECIFIED WITH INTOXICATION, UNSPECIFIED Status: Resolved Current Visit: Yes Qualifiers: Complication of substance-induced condition: uncomplicated Qualified Code(s ): F10.920 - Alcohol use, unspecified with intoxication, uncomplicated (2) Intertrochanteric fracture, hip SNOMED Code(s): 132916847 Code(s): S72.143A - DISPLACED INTERTROCHANTERIC FRACTURE OF UNSP FEMUR, INIT Status: Acute Priority: High Current Visit: Yes (3) Diabetes mellitus SNOMED Code(s): 78442795 Code(s): E11.9 - TYPE 2 DIABETES MELLITUS WITHOUT COMPLICATIONS Status: Chronic Priority: Medium Current Visit: Yes Qualifiers: Diabetes mellitus type: type 2 Diabetes mellitus complication status: without complication Diabetes mellitus residential insulin use: with medical terminologist use Qualified Code(s): E11.9 - Type 2 diabetes mellitus without complications ; Z79.4 - correction (current) use of insulin (4) Alcohol withdrawal SNOMED Code(s): 828130827 Code(s): F10.239 - ALCOHOL DEPENDENCE WITH WITHDRAWAL, UNSPECIFIED Status: Suspected Priority: High Current Visit: Yes Qualifiers: Complication of substance-induced condition: uncomplicated Qualified Code(s ): F10.230 - Alcohol dependence with withdrawal, uncomplicated
[2016-10-09 18:42] VITALS: BP 135/72
--- NOTE | 2016-10-09 19:18 | PCM.DCSUM1 ---
Discharge Summary - Hospital Course HPI Initial Comments: 56-year-old female admitted 10/05/16 for right hip fracture IT and alcohol intoxication with past medical history of hypertension, type 2 diabetes on insulin, alcohol abuse, and depression. Brief History: Patient initially presented to emergency department on the evening of 10/04/16 after she had been dancing and her right hip suddenly gave out under her causing her to fall. She had immediate had right hip pain that radiated into her groin. She denied hitting her head or any other injuries. In the emergency department it was noted that the patient was intoxicated and does have a past history of alcohol abuse. In ED patient was found to be mildly hyponatremic with a sodium of 135 and had ETOH of 250.6. Right hip x-ray showed a comminuted right intertrochanteric femoral neck fracture with involvement of the grater and lesser trochanters. - Discharge Data Discharge Date: 10/09/16 Discharge Disposition: Home, Self-Care 01 Condition: Good - Discharge Diagnosis/Problem(s) (1) Alcohol withdrawal SNOMED Code(s): 043293654 ICD Code: F10.239 - ALCOHOL DEPENDENCE WITH WITHDRAWAL, UNSPECIFIED Status : Suspected Priority: High Current Visit: Yes Qualifiers: Complication of substance-induced condition: uncomplicated Qualified Code(s ): F10.230 - Alcohol dependence with withdrawal, uncomplicated (2) Diabetes mellitus SNOMED Code(s): 26544485 ICD Code: E11.9 - TYPE 2 DIABETES MELLITUS WITHOUT COMPLICATIONS Status: Chronic Priority: Medium Current Visit: Yes Qualifiers: Diabetes mellitus type: type 2 Diabetes mellitus complication status: without complication 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 Qualified Code(s): E11.9 - Type 2 diabetes mellitus without complications ; Z79.4 - retirement (current) use of insulin (3) Intertrochanteric fracture, hip SNOMED Code(s): 963387820 ICD Code: S72.143A - DISPLACED INTERTROCHANTERIC FRACTURE OF UNSP FEMUR, INIT Status: Acute Priority: High Current Visit: Yes - Patient Summary/Data Operative Procedure(s) Performed: CR R hip with insertion of CM nail Consults: Consultations 10/04/16 23:46 Consult to Physician [CONS] Routine 10/07/16 07:00 PT Evaluation and Treatment [CONS] Routine Hospital Course: In ED patient was found to be mildly hyponatremic with a sodium of 135 and had ETOH of 250.6. Right hip x-ray showed a comminuted right intertrochanteric femoral neck fracture with involvement of the grater and lesser trochanters. Patient was admitted and scheduled for surgery the following day once medically stable. Patient was taken to surgery on day one of admission once stabilized and hip fracture was reduced with insertion of a CM nail per Ortho. Patient was also found to have a UTI during her admission and was treated with Levaquin throughout her stay. She was placed on CIWA protocol for ETOH withdrawl but did not require ativan after first day of hospitalization Before discharge patient was transfused with two units pRBCs for an anemia of 7.9 likely multifactorial from acute surgey, dillusional from vol expansion with IVF and chronic anemia from ETOH abuse. Following transfusion Hgb increased to 10.9. - Patient Instructions Diet: Diabetic Diet Activity: Rest and Relax Today Driving: Do Not Drive Showering/Bathing: May Shower Wound/Incision Care: Keep Operative Site/Wound Site Clean and Dry, Do NOT Change Dressing Notify Provider of: Fever, Increased Pain, Swelling and Redness, Drainage, Nausea and/or Vomiting Other/Special Instructions: Follow-up with scheduled appointments. Take antibioics for 3 more days for UTI. Take other medications as prescribed. Return to ED if new or worsening symptoms. - Discharge Plan Prescriptions/Med Rec: Acetaminophen/HYDROcodone [[place] 325-10 MG] 1 tab PO Q4H PRN #80 tablet PRN Reason: Pain Levofloxacin [Levaquin] 750 mg PO DAILY #3 tablet Rivaroxaban [Xarelto] 10 mg PO DAILY #28 tablet Home Medications: Home Meds Humalog 2 units SQ ASDIRECTED PRN 09/06/13 [History] Insulin Glarg,Human.Rec.Analog [Lantus Solostar] 30 unit SUBCUT DAILY 09/06/13 [ History] Lisinopril 20 mg PO DAILY 09/06/13 [History] Escitalopram [Lexapro] 10 mg PO DAILY 11/06/13 [History] Metoprolol Succinate [Toprol XL] 25 mg PO DAILY 11/06/13 [History] Acetaminophen/HYDROcodone [[place] 325-10 MG] 1 tab PO Q4H PRN #80 tablet [Rx] Levofloxacin [Levaquin] 750 mg PO DAILY #3 tablet 10/09/16 [Rx] Rivaroxaban [Xarelto] 10 mg PO DAILY #28 tablet 10/09/16 [Rx] Patient Handouts: Acetaminophen; Hydrocodone tablets or capsules, Rivaroxaban oral tablets, Hip Fracture, Levofloxacin tablets Referrals: Andrey Dhillon PA-C [Physician Clinical Informatics Educator] - 10/16/16 9:30 am Chelsie Evans MD [Physician] - 11/14/16 9:30 am Sabas Sommer MD [Physician] - 10/25/16 9:30 am - Discharge Summary/Plan Comment DC Time >30 min.: Yes Discharge Summary/Plan Comment: 56-year-old female admitted 10/05/16 for right hip fracture IT and alcohol intoxication with past medical history of hypertension, type 2 diabetes on insulin, alcohol abuse, and depression. Patient initially presented to emergency department on the evening of 10/04/16 after she had been dancing and her right hip suddenly gave out under her causing her to fall. She had immediate had right hip pain that radiated into her groin. She denied hitting her head or any other injuries. In the emergency department it was noted that the patient was intoxicated and does have a past history of alcohol abuse. In ED patient was found to be mildly hyponatremic with a sodium of 135 and had ETOH of 250.6. Right hip x-ray showed a comminuted right intertrochanteric femoral neck fracture with involvement of the grater and lesser trochanters. Patient was admitted and scheduled for surgery the following day once medically stable. Patient was taken to surgery on day one of admission once stabilized and hip fracture was reduced with insertion of a CM nail per Ortho. Patient was also found to have a UTI during her admission and was treated with Levaquin throughout her stay. She was placed on CIWA protocol for ETOH withdrawl but did not require ativan after first day of hospitalization Before discharge patient was transfused with two units pRBCs for an anemia of 7.9 likely multifactorial from acute surgey, dillusional from vol expansion with IVF and chronic anemia from ETOH abuse. Following transfusion Hgb increased to 10.9. Patient was discharged in good condition on 10/09/16 with ortho follow-up and PCP follow-up with prescriptions for Xarelto 10 mg PO for 28 days, [place] 10-325 #80, and Levaquin for 3 days. - General Info Date of Service: 10/09/16 Admission Dx/Problem (Free Text: Right hip Fracture Subjective Update: Still having occasional shooting pains in right hip to her knee. Eating and eliminating without difficulty. Feeling a little short of breath when up and ambulating. No chest pain, palpitation, nausea, or vomiting. Functional Status: Reports: pain controlled, tolerating diet, ambulating, urinating - Review of Systems General: Denies: Fever, Weakness, Fatigue HEENT: Denies: dysphasia Pulmonary: Reports: shortness of breath. Denies: pleuritic chest pain, cough, hemoptysis Cardiovascular: Denies: Chest Pain, Palpitations Gastrointestinal: Denies: Abdominal pain, Constipation Genitourinary: Denies: dysuria Musculoskeletal: Denies: neck pain Skin: Denies: cyanosis Neurological: Denies: Confusion, Dizziness, Headache Psychiatric: Denies: confusion - Patient Data Vitals - Most Recent: Last Vital Signs Temp 37.4 C 10/09/16 18:05 Pulse 78 10/09/16 18:05 Resp 18 10/09/16 18:05 BP 135/72 10/09/16 18:05 Pulse Ox 94 L 10/09/16 18:05 Weight - Most Recent: 75 kg I&O - Last 24 hours: Intake & Output 10/09/16 10/09/16 10/09/16 06:59 14:59 22:59 Intake Total 2529 322 1018 Output Total 570 500 Balance 1959 322 518 Lab Results - Last 24 hrs: Laboratory Results - last 24 hr 10/08/16 10/09/16 10/09/16 Range/Units 21:33 04:45 04:45 WBC 12.61 H (4.0-11.0) K/uL RBC 2.61 L (4.30-5.90) M/uL Hgb 7.9 L (12.0-16.0) g/dL Hct 24.0 L (36.0-46.0) % MCV 92.0 (80.0-98.0) fL MCH 30.3 (27.0-32.0) pg MCHC 32.9 (31.0-37.0) g/dL RDW Std Deviation 42.7 (28.0-62.0) fl RDW Coeff of Mahesh 13 (11.0-15.0) % Plt Count 243 (150-400) K/uL MPV 10.40 (7.40-12.00) fL Neut % (Auto) 72.3 (48.0-80.0) % Lymph % (Auto) 13.1 L (16.0-40.0) % [place] % (Auto) 10.5 (0.0-15.0) % Eos % (Auto) 3.9 (0.0-7.0) % Baso % (Auto) 0.2 (0.0-1.5) % Neut # (Auto) 9.1 H (1.4-5.7) K/uL Lymph # (Auto) 1.7 (0.6-2.4) K/uL [place] # (Auto) 1.3 H (0.0-0.8) K/uL Eos # (Auto) 0.5 (0.0-0.7) K/uL Baso # (Auto) 0.0 (0.0-0.1) K/uL Nucleated RBC % 0.0 /100WBC Nucleated RBCs # 0 K/uL Sodium 133 L (136-146) mmol/L Potassium 4.7 (3.5-5.1) mmol/L Chloride 103 (98-110) mmol/L Carbon Dioxide 21 (21-31) mmol/L BUN 29 H (6.0-23.0) mg/dL Creatinine 0.9 (0.6-1.5) mg/dL Est Cr Clr Drug Dosing 71.53 mL/min Estimated GFR (MDRD) > 60.0 ml/min Glucose 103 (60-110) mg/dL POC Glucose 177 H (60-110) mg/dL Calcium 7.8 L (8.8-10.8) mg/dL Magnesium 1.8 (1.5-2.3) mEq/L Total Bilirubin 0.5 (0.1-1.5) mg/dL AST 30 (5-40) IU/L ALT 24 (8-54) IU/L Alkaline Phosphatase 79 (40-150) Total Protein 4.9 L (6.0-8.0) g/dL Albumin 2.9 L (3.5-5.0) g/dL Globulin 2.0 (2.0-3.5) g/dL Albumin/Globulin Ratio 1.5 (1.3-2.8) Blood Type Antibody Screen Crossmatch 10/09/16 10/09/16 10/09/16 Range/Units 06:10 08:45 11:55 WBC (4.0-11.0) K/uL RBC (4.30-5.90) M/uL Hgb (12.0-16.0) g/dL Hct (36.0-46.0) % MCV (80.0-98.0) fL MCH (27.0-32.0) pg MCHC (31.0-37.0) g/dL RDW Std Deviation (28.0-62.0) fl RDW Coeff of Mahesh (11.0-15.0) % Plt Count (150-400) K/uL MPV (7.40-12.00) fL Neut % (Auto) (48.0-80.0) % Lymph % (Auto) (16.0-40.0) % [place] % (Auto) (0.0-15.0) % Eos % (Auto) (0.0-7.0) % Baso % (Auto) (0.0-1.5) % Neut # (Auto) (1.4-5.7) K/uL Lymph # (Auto) (0.6-2.4) K/uL [place] # (Auto) (0.0-0.8) K/uL Eos # (Auto) (0.0-0.7) K/uL Baso # (Auto) (0.0-0.1) K/uL Nucleated RBC % /100WBC Nucleated RBCs # K/uL Sodium (136-146) mmol/L Potassium (3.5-5.1) mmol/L Chloride (98-110) mmol/L Carbon Dioxide (21-31) mmol/L BUN (6.0-23.0) mg/dL Creatinine (0.6-1.5) mg/dL Est Cr Clr Drug Dosing mL/min Estimated GFR (MDRD) ml/min Glucose (60-110) mg/dL POC Glucose 114 H 157 H (60-110) mg/dL Calcium (8.8-10.8) mg/dL Magnesium (1.5-2.3) mEq/L Total Bilirubin (0.1-1.5) mg/dL AST (5-40) IU/L ALT (8-54) IU/L Alkaline Phosphatase (40-150) Total Protein (6.0-8.0) g/dL Albumin (3.5-5.0) g/dL Globulin (2.0-3.5) g/dL Albumin/Globulin Ratio (1.3-2.8) Blood Type O POSITIVE Antibody Screen NEGATIVE Crossmatch See Detail 10/09/16 10/09/16 Range/Units 16:43 18:08 WBC 11.69 H (4.0-11.0) K/uL RBC 3.60 L (4.30-5.90) M/uL Hgb 10.9 L (12.0-16.0) g/dL Hct 33.1 L (36.0-46.0) % MCV 91.9 (80.0-98.0) fL MCH 30.3 (27.0-32.0) pg MCHC 32.9 (31.0-37.0) g/dL RDW Std Deviation 44.3 (28.0-62.0) fl RDW Coeff of Mahesh 13 (11.0-15.0) % Plt Count 270 (150-400) K/uL MPV 10.30 (7.40-12.00) fL Neut % (Auto) 71.4 (48.0-80.0) % Lymph % (Auto) 14.2 L (16.0-40.0) % [place] % (Auto) 10.1 (0.0-15.0) % Eos % (Auto) 4.1 (0.0-7.0) % Baso % (Auto) 0.2 (0.0-1.5) % Neut # (Auto) 8.4 H (1.4-5.7) K/uL Lymph # (Auto) 1.7 (0.6-2.4) K/uL [place] # (Auto) 1.2 H (0.0-0.8) K/uL Eos # (Auto) 0.5 (0.0-0.7) K/uL Baso # (Auto) 0.0 (0.0-0.1) K/uL Nucleated RBC % 0.0 /100WBC Nucleated RBCs # 0 K/uL Sodium (136-146) mmol/L Potassium (3.5-5.1) mmol/L Chloride (98-110) mmol/L Carbon Dioxide (21-31) mmol/L BUN (6.0-23.0) mg/dL Creatinine (0.6-1.5) mg/dL Est Cr Clr Drug Dosing mL/min Estimated GFR (MDRD) ml/min Glucose (60-110) mg/dL POC Glucose 124 H (60-110) mg/dL Calcium (8.8-10.8) mg/dL Magnesium (1.5-2.3) mEq/L Total Bilirubin (0.1-1.5) mg/dL AST (5-40) IU/L ALT (8-54) IU/L Alkaline Phosphatase (40-150) Total Protein (6.0-8.0) g/dL Albumin (3.5-5.0) g/dL Globulin (2.0-3.5) g/dL Albumin/Globulin Ratio (1.3-2.8) Blood Type Antibody Screen Crossmatch Med Orders - Current: Current Medications Acetaminophen (Tylenol Extra Strength) 1,000 mg PO Q6H PRN PRN Reason: Pain Last Admin: 10/06/16 12:05 Dose: 1,000 mg Hydrocodone Bitart/Acetaminophen ([place] 325-10 Mg) 1 - 2 tab PO Q4H PRN PRN Reason: Pain Last Admin: 10/09/16 18:55 Dose: 2 tab Diphenhydramine HCl (Benadryl) 25 mg PO Q6H PRN PRN Reason: Itching Last Admin: 10/08/16 21:25 Dose: 25 mg Docusate Sodium (Colace) 100 mg PO BID NILE Last Admin: 10/09/16 08:01 Dose: 100 mg Hydromorphone HCl (Dilaudid) 1 mg IVPUSH Q2H PRN PRN Reason: Pain (severe 7-10) Last Admin: 10/09/16 02:58 Dose: 1 mg Pantoprazole Sodium 40 mg/ (Sodium Chloride) 10 mls @ 300 mls/hr IVPUSH Q12H NILE Last Admin: 10/09/16 09:53 Dose: 300 mls/hr Prochlorperazine Edisylate 5 (mg/ Sodium Chloride) 51 mls @ 150 mls/hr IV Q6H PRN PRN Reason: Nausea/Vomiting Last Admin: 10/07/16 05:55 Dose: 150 mls/hr Sodium Chloride (Normal Saline) 1,000 mls @ 125 mls/hr IV ASDIRECTED [facility] Last Admin: 10/09/16 00:50 Dose: 125 mls/hr Levofloxacin/Dextrose 750 mg/ (Premix) 150 mls @ 100 mls/hr IV Q24H [facility] Last Admin: 10/09/16 09:53 Dose: 100 mls/hr Insulin Aspart (Novolog) 0 unit SUBCUT QIDACANDBED [facility] PRN Reason: Protocol Last Admin: 10/09/16 16:50 Dose: Not Given Insulin Glargine (Lantus Solostar) 30 units SUBCUT DAILY [facility] Last Admin: 10/09/16 08:02 Dose: 30 units Lorazepam (Ativan) 0 mg IVPUSH Q4H PRN; Protocol PRN Reason: Anxiety Multivit/Ca Carb/B Cmplx/FA/Prenat (Renal Caps Softgel) 1 cap PO DAILY [facility] Last Admin: 10/09/16 08:02 Dose: 1 cap Ondansetron HCl (Zofran) 4 mg IVPUSH Q4H PRN PRN Reason: Nausea Last Admin: 10/06/16 11:51 Dose: 4 mg Polyethylene Glycol (Miralax) 17 gm PO ONETIME PRN PRN Reason: Constipation Last Admin: 10/09/16 08:01 Dose: 17 gm Rivaroxaban (Xarelto) 10 mg PO DAILY [facility] Last Admin: 10/09/16 08:01 Dose: 10 mg Sodium Chloride (Saline Flush) 10 ml FLUSH ASDIRECTED PRN PRN Reason: Keep Vein Open Sodium Chloride (Saline Flush) 2.5 ml FLUSH ASDIRECTED PRN PRN Reason: Keep Vein Open Thiamine HCl (Vitamin B-1) 100 mg PO BEDTIME [facility] Last Admin: 10/08/16 21:25 Dose: 100 mg Discontinued Medications Diphenhydramine HCl (Benadryl) 25 mg IVPUSH ONETIME ONE Stop: 10/07/16 08:57 Last Admin: 10/07/16 09:19 Dose: 25 mg Fentanyl (Sublimaze) Confirm Administered Dose 100 mcg .ROUTE .STK-MED ONE Stop: 10/06/16 07:24 Furosemide (Lasix) 40 mg IVPUSH NOW ONE Stop: 10/06/16 21:27 Last Admin: 10/06/16 21:58 Dose: 40 mg Hydromorphone HCl (Dilaudid) 1 mg IVPUSH ONETIME ONE Stop: 10/04/16 23:45 Last Admin: 10/05/16 00:06 Dose: 1 mg Sodium Chloride (Normal Saline) 1,000 mls @ 125 mls/hr IV STAT NILE Last Infusion: 10/05/16 12:56 Dose: 100 mls/hr Multivitamins/Minerals 10 ml/Thiamine HCl 100 mg/ Folic Acid 1 mg/ Sodium Chloride 1,011.2 mls @ 125 mls/hr IV DAILY ONE Stop: 10/05/16 08:42 Last Admin: 10/05/16 01:24 Dose: 125 mls/hr Vancomycin HCl 1 gm/ Sodium (Chloride) 250 mls @ 167 mls/hr IV ONETIME ONE Stop: 10/06/16 08:29 Last Admin: 10/06/16 07:00 Dose: 167 mls/hr Sodium Chloride (Normal Saline) 1,000 mls @ 100 mls/hr IV ASDIRECTED [facility] Last Admin: 10/06/16 03:14 Dose: 100 mls/hr Pantoprazole Sodium 40 mg/ (Sodium Chloride) 10 mls @ 300 mls/hr IVPUSH NOW ONE Stop: 10/05/16 12:46 Last Admin: 10/05/16 13:18 Dose: 300 mls/hr Vancomycin HCl 1 gm/ Sodium (Chloride) 250 mls @ 166.667 mls/hr IV ONETIME ONE Stop: 10/07/16 08:29 Vancomycin HCl 1 gm/ Sodium (Chloride) 250 mls @ 166.667 mls/hr IV ONETIME ONE Stop: 10/06/16 11:59 Vancomycin HCl 1 gm/ Sodium (Chloride) 250 mls @ 166.667 mls/hr IV ONETIME ONE Stop: 10/07/16 08:29 Last Admin: 10/07/16 06:16 Dose: 166.667 mls/hr Lactated Ringer's (Ringers, Lactated) 1,000 mls @ 125 mls/hr IV ASDIRECTED [facility] Last Admin: 10/06/16 19:02 Dose: 125 mls/hr Prochlorperazine Edisylate 5 (mg/ Sodium Chloride) 51 mls @ 150 mls/hr IV Q6H PRN PRN Reason: Nausea/Vomiting Multivitamins/Minerals 10 ml/Thiamine HCl 100 mg/ Folic Acid 1 mg/ Sodium Chloride 1,011.2 mls @ 100 mls/hr IV ONETIME ONE Stop: 10/07/16 06:49 Last Admin: 10/06/16 21:27 Dose: 100 mls/hr Magnesium Sulfate 4 gm/ Premix 100 mls @ 50 mls/hr IV ONETIME ONE Stop: 10/07/16 09:57 Last Admin: 10/07/16 08:30 Dose: 50 mls/hr Sodium Chloride (Normal Saline) 500 mls @ 500 mls/hr IV .BOLUS ONE Stop: 10/08/16 04:33 Last Admin: 10/08/16 04:03 Dose: 500 mls/hr Sodium Chloride (Normal Saline) 1,000 mls @ 125 mls/hr IV ASDIRECTED [facility] Ceftriaxone Sodium/Dextrose 1 (gm/ Premix) 50 mls @ 100 mls/hr IV Q24H [facility] Last Admin: 10/08/16 11:57 Dose: 100 mls/hr Insulin Aspart (Novolog) 0 unit SUBCUT Q6H NILE PRN Reason: Protocol Last Admin: 10/05/16 06:47 Dose: Not Given Insulin Aspart (Novolog) 10 unit SUBCUT NOW ONE Stop: 10/07/16 12:11 Last Admin: 10/07/16 12:41 Dose: Not Given Insulin Human Regular (Novolin R) 10 unit IVPUSH ONETIME ONE PRN Reason: Protocol Stop: 10/07/16 12:10 Last Admin: 10/07/16 12:43 Dose: 10 units Midazolam HCl (Versed 1 Mg/Ml) Confirm Administered Dose 2 mg .ROUTE .STK-MED ONE Stop: 10/06/16 07:24 Ondansetron HCl (Zofran) 4 mg IVPUSH ONETIME ONE Stop: 10/04/16 23:45 Last Admin: 10/05/16 00:06 Dose: 4 mg Ondansetron HCl (Zofran) Confirm Administered Dose 4 mg .ROUTE .STK-MED ONE Stop: 10/06/16 07:23 Phenylephrine HCl (Ramiro-Synephrine) Confirm Administered Dose 10 mg .ROUTE .STK- MED ONE Stop: 10/06/16 08:42 Propofol (Diprivan 20 Ml) Confirm Administered Dose 1,200 mg .ROUTE .STK-MED ONE Stop: 10/06/16 07:24 Scopolamine (Transderm-Scop) Confirm Administered Dose 1.5 mg .ROUTE .STK-MED ONE Stop: 10/06/16 07:46 - Exam Quality Assessment: Reports: DVT prophylaxis General: Reports: alert, oriented, cooperative, no acute distress HEENT: Reports: Pupils equal, Pupils reactive, EOMI, Mucous membr. moist/pink Neck: Reports: supple Lungs: Reports: Clear to auscultation, Normal respiratory effort Cardiovascular: Reports: Regular Rate, Regular Rhythm Abdomen: Reports: bowel sounds present, soft, no tenderness, no distension Rectal (Female) Exam: Normal Exam Back Exam: Reports: Normal Inspection, Full Range of Motion Extremities: Reports: no edema, normal pulses Skin: Reports: warm, dry, intact Neurological: Reports: no new focal deficit Psy/Mental Status: Reports: alert, normal affect, normal mood *Q Meaningful Use (DIS) - VTE *Q VTE Criteria *Q: - Stroke *Q Stroke Criteria *Q: - AMI *Q AMI Criteria *Q:
== END 2016-10-09 19:25 | disposition home or self-care (01) | DRG 308 ==
LOC: MW.ED 23:07 → MW.MS 23:55 → MW.ICU 10-05 00:25 → MW.MS 10-07 09:45
PROVIDERS: ADMIT Family Medicine; ATTEND Family Medicine
PROC: 0QS634Z Reposition Right Upper Femur with Internal Fixation Device, Percutaneous Approach (ICD-10-PCS; principal; 2016-10-06)
DX: S72.144A Nondisplaced intertrochanteric fracture of right femur, initial encounter for closed fracture (principal); W18.39XA Other fall on same level, initial encounter; Y93.41 Activity, dancing; N39.0 Urinary tract infection, site not specified; E86.0 Dehydration; F10.230 Alcohol dependence with withdrawal, uncomplicated; E11.9 Type 2 diabetes mellitus without complications; F41.8 Other specified anxiety disorders; Z79.4 Long term (current) use of insulin; Z79.899 Other long term (current) drug therapy
CPT/HCPCS: 01210; 36415; 36430; 51703; 71010; 71010-26; 73502-26-RT; 73502-RT; 76001; 76001-26; 80053; 81001; 82962; 83735; 85025; 85610; 86850; 86900; 86901; 86920; 86921; 86922; 87086; 87088; 87186; 93005; 96361; 96374; 96375; 97110-GP; 97162-GP; 99285; 99285-25; A9270-GY; C1713; C1769; C9113; G0480; J0696; J0780; J1170; J1200; J1815-GY ×2; J1940; J1956; J2250; J2370; J2405; J2704; J3010; J3370; J3411; J3475; J7040; J7050; J7120; P9016

== ENCOUNTER 2016-10-19 11:33 | Emergency (ER) | payer BC, OTHER ==
[2016-10-19] MEDS ORDERED: Sodium Chloride 0.9% 1,000 ML IV ONE (12:13)
--- NOTE | 2016-10-19 12:29 | EDM.PDOC ---
ED HPI GENERAL MEDICAL PROBLEM - General Chief Complaint: Abdominal Pain Stated Complaint: UTI?? Time Seen by Provider: 10/19/16 12:00 Source of Information: Reports: Patient, Family History Limitations: Reports: No Limitations - History of Present Illness INITIAL COMMENTS - FREE TEXT/NARRATIVE: History of present illness: [36-year-old female comes in complaining of lower pelvic pressure with some radiating up into the right quadrant. Patient indicates that she feels like she might have a bladder infection but is uncertain if it might be more] Review of systems: As per history of present illness and below otherwise all systems reviewed and negative. Past medical history: As per history of present illness and as reviewed below otherwise noncontributory. Surgical history: As per history of present illness and as reviewed below otherwise noncontributory. Social history: No reported history of drug or alcohol abuse. Family history: As per history of present illness and as reviewed below otherwise noncontributory. Physical exam: HEENT: Atraumatic, normocephalic, pupils reactive, negative for conjunctival pallor or scleral icterus, mucous membranes moist, throat clear, neck supple, nontender, trachea midline. Lungs: Clear to auscultation, breath sounds equal bilaterally, chest nontender. Heart: S1S2, regular, negative for clicks, rubs, or JVD. Abdomen: Soft, lower bilateral abdominal tenderness that is diffuse and nonspecific save it is radiating from the suprapubic region, Negative for masses or hepatosplenomegaly. Negative for costovertebral tenderness. Pelvis: Stable nontender. Genitourinary: Deferred. Rectal: Deferred. Extremities: Atraumatic, negative for cords or calf pain. Neurovascular unremarkable. Neuro: Awake, alert, oriented. Cranial nerves II through XII unremarkable. Cerebellum unremarkable. Motor and sensory unremarkable throughout. Exam nonfocal. Diagnostics: [UA, CBC, CMP] Therapeutics: [IV fluid] Impression: [UTI] Plan: [Antibiotics follow-up with PCP] Definitive disposition and diagnosis as appropriate pending reevaluation and review of above. right lower quad Pain Score (Numeric/FACES): 7 - Related Data Allergies Allergy/AdvReac Type Severity Reaction Status Date / Time bee stings Allergy Swelling Uncoded 10/19/16 11:46 Home Meds: Home Meds Humalog 2 units SQ ASDIRECTED PRN 09/06/13 [History] Insulin Glarg,Human.Rec.Analog [Lantus Solostar] 30 unit SUBCUT DAILY 09/06/13 [ History] Lisinopril 20 mg PO DAILY 09/06/13 [History] Escitalopram [Lexapro] 10 mg PO DAILY 11/06/13 [History] Metoprolol Succinate [Toprol XL] 25 mg PO DAILY 11/06/13 [History] Acetaminophen/HYDROcodone [[place] 325-10 MG] 1 tab PO Q4H PRN #80 tablet [Rx] Levofloxacin [Levaquin] 750 mg PO DAILY #3 tablet 10/09/16 [Rx] Rivaroxaban [Xarelto] 10 mg PO DAILY #28 tablet 10/09/16 [Rx] Nitrofurantoin Monohyd/M-Cryst [Macrobid 100 mg Capsule] 100 mg PO BID #20 capsule 10/19/16 [Rx] Past Medical History HEENT History: Reports: None, Cataract Cardiovascular History: Reports: Arrhythmia, Hypertension Genitourinary History: Reports: None Musculoskeletal History: Reports: Arthritis, Other (See Below) Psychiatric History: Reports: Anxiety Endocrine/Metabolic History: Reports: Diabetes, Type I Oncologic (Cancer) History: Reports: None Dermatologic History: Reports: None - Infectious Disease History Infectious Disease History: Reports: Chicken Pox, MRSA (ankle wound ~5 years ago ) - Past Surgical History HEENT Surgical History: Reports: Cataract Surgery Female Surgical History: Reports: Tubal Ligation Dermatological Surgical History: Reports: Skin Graft Social & Family History - Family History Family Medical History: Noncontributory - Tobacco Use Smoking Status *Q: Never Smoker Second Hand Smoke Exposure: Yes - Caffeine Use Caffeine Use: Reports: None - Alcohol Use Days Per Week of Alcohol Use: 0 Number of Drinks Per Day: 4 Total Drinks Per Week: 0 - Recreational Drug Use Recreational Drug Use: No ED ROS GENERAL - Review of Systems Review Of Systems: See Below (See history of present illness) ED EXAM, GENERAL - Physical Exam Exam: See Below (See history of present illness) Course - Vital Signs Last Recorded V/S: Last Vital Signs Temp 37.1 C 10/19/16 15:30 Pulse 80 10/19/16 15:30 Resp 16 10/19/16 15:30 BP 169/75 H 10/19/16 15:30 Pulse Ox 95 10/19/16 15:30 - Orders/Labs/Meds Orders: Active Orders 24 hr Category Date Time Status Abdomen Pelvis w Cont [CT] Stat Exams 10/19/16 13:32 Taken Sodium Chloride 0.9% [Normal Saline] 1,000 ml Med 10/19/16 12:30 Active IV ASDIRECTED Medication Orders Sodium Chloride (Normal Saline) 1,000 mls @ 125 mls/hr IV ASDIRECTED NILE Last Admin: 10/19/16 12:40 Dose: 125 mls/hr Labs: Laboratory Tests 10/19/16 10/19/16 10/19/16 Range/Units 11:50 12:26 12:26 WBC 13.38 H (4.0-11.0) K/uL RBC 3.95 L (4.30-5.90) M/uL Hgb 12.2 (12.0-16.0) g/dL Hct 36.6 (36.0-46.0) % MCV 92.7 (80.0-98.0) fL MCH 30.9 (27.0-32.0) pg MCHC 33.3 (31.0-37.0) g/dL RDW Std Deviation 45.8 (28.0-62.0) fl RDW Coeff of Mahesh 14 (11.0-15.0) % Plt Count 588 H (150-400) K/uL MPV 9.50 (7.40-12.00) fL Neut % (Auto) 79.3 (48.0-80.0) % Lymph % (Auto) 13.0 L (16.0-40.0) % [place] % (Auto) 5.1 (0.0-15.0) % Eos % (Auto) 2.3 (0.0-7.0) % Baso % (Auto) 0.3 (0.0-1.5) % Neut # (Auto) 10.6 H (1.4-5.7) K/uL Lymph # (Auto) 1.7 (0.6-2.4) K/uL [place] # (Auto) 0.7 (0.0-0.8) K/uL Eos # (Auto) 0.3 (0.0-0.7) K/uL Baso # (Auto) 0.0 (0.0-0.1) K/uL Nucleated RBC % 0.0 /100WBC Nucleated RBCs # 0 K/uL Sodium 133 L (136-146) mmol/L Potassium 4.6 (3.5-5.1) mmol/L Chloride 98 (98-110) mmol/L Carbon Dioxide 23 (21-31) mmol/L BUN 26 H (6.0-23.0) mg/dL Creatinine 0.9 (0.6-1.5) mg/dL Est Cr Clr Drug Dosing 68.68 mL/min Estimated GFR (MDRD) > 60.0 ml/min Glucose 471 H (60-110) mg/dL POC Glucose (60-110) mg/dL Calcium 9.6 (8.8-10.8) mg/dL Total Bilirubin 0.8 (0.1-1.5) mg/dL AST 33 (5-40) IU/L ALT 56 H (8-54) IU/L Alkaline Phosphatase 144 (40-150) Total Protein 6.4 (6.0-8.0) g/dL Albumin 3.5 (3.5-5.0) g/dL Globulin 2.9 (2.0-3.5) g/dL Albumin/Globulin Ratio 1.2 L (1.3-2.8) Urine Color YELLOW Urine Appearance CLEAR Urine pH 6.5 (5.0-8.0) Ur Specific [place] 1.015 (1.001-1.035) Urine Protein 30 (NEGATIVE) mg/dL Urine Glucose (UA) >=1000 (NEGATIVE) mg/dL Urine Ketones TRACE H (NEGATIVE) mg/dL Urine Occult Blood TRACE-INTACT (NEGATIVE) Urine Nitrite NEGATIVE (NEGATIVE) Urine Bilirubin NEGATIVE (NEGATIVE) Urine Urobilinogen 0.2 (<2.0) EU/dL Ur Leukocyte Esterase TRACE (NEGATIVE) Urine RBC 0-1 (0-2/HPF) Urine WBC 1-3 (0-5/HPF) Ur Epithelial Cells FEW (NONE-FEW) Urine Bacteria FEW (NEGATIVE) 10/19/16 10/19/16 Range/Units 12:26 15:29 WBC (4.0-11.0) K/uL RBC (4.30-5.90) M/uL Hgb (12.0-16.0) g/dL Hct (36.0-46.0) % MCV (80.0-98.0) fL MCH (27.0-32.0) pg MCHC (31.0-37.0) g/dL RDW Std Deviation (28.0-62.0) fl RDW Coeff of Mahesh (11.0-15.0) % Plt Count (150-400) K/uL MPV (7.40-12.00) fL Neut % (Auto) (48.0-80.0) % Lymph % (Auto) (16.0-40.0) % [place] % (Auto) (0.0-15.0) % Eos % (Auto) (0.0-7.0) % Baso % (Auto) (0.0-1.5) % Neut # (Auto) (1.4-5.7) K/uL Lymph # (Auto) (0.6-2.4) K/uL [place] # (Auto) (0.0-0.8) K/uL Eos # (Auto) (0.0-0.7) K/uL Baso # (Auto) (0.0-0.1) K/uL Nucleated RBC % /100WBC Nucleated RBCs # K/uL Sodium (136-146) mmol/L Potassium (3.5-5.1) mmol/L Chloride (98-110) mmol/L Carbon Dioxide (21-31) mmol/L BUN (6.0-23.0) mg/dL Creatinine (0.6-1.5) mg/dL Est Cr Clr Drug Dosing mL/min Estimated GFR (MDRD) ml/min Glucose (60-110) mg/dL POC Glucose 394 H 274 H (60-110) mg/dL Calcium (8.8-10.8) mg/dL Total Bilirubin (0.1-1.5) mg/dL AST (5-40) IU/L ALT (8-54) IU/L Alkaline Phosphatase (40-150) Total Protein (6.0-8.0) g/dL Albumin (3.5-5.0) g/dL Globulin (2.0-3.5) g/dL Albumin/Globulin Ratio (1.3-2.8) Urine Color Urine Appearance Urine pH (5.0-8.0) Ur Specific [place] (1.001-1.035) Urine Protein (NEGATIVE) mg/dL Urine Glucose (UA) (NEGATIVE) mg/dL Urine Ketones (NEGATIVE) mg/dL Urine Occult Blood (NEGATIVE) Urine Nitrite (NEGATIVE) Urine Bilirubin (NEGATIVE) Urine Urobilinogen (<2.0) EU/dL Ur Leukocyte Esterase (NEGATIVE) Urine RBC (0-2/HPF) Urine WBC (0-5/HPF) Ur Epithelial Cells (NONE-FEW) Urine Bacteria (NEGATIVE) Meds: Medications Generic Name Dose Route Start Last Admin Trade Name Freq PRN Reason Stop Dose Admin Sodium Chloride 1,000 mls @ 125 mls/hr 10/19/16 12:30 10/19/16 12:40 Normal Saline IV 125 mls/hr ASDIRECTED NILE Administration Discontinued Medications Generic Name Dose Route Start Last Admin Trade Name Freq PRN Reason Stop Dose Admin Clonidine HCl 0.1 mg 10/19/16 13:57 10/19/16 14:19 Catapres PO 10/19/16 13:58 0.1 mg ONETIME ONE Administration Insulin Human Regular 10 unit 10/19/16 13:29 10/19/16 13:51 Novolin R IVPUSH 10/19/16 13:30 10 unit ONETIME ONE Administration Iopamidol 100 ml 10/19/16 15:05 10/19/16 15:09 Isovue Multipack-370 (76%) IVPUSH 10/19/16 15:06 100 ml ONETIME STA Administration Departure - Departure Time of Disposition: 16:01 Disposition: Home, Self-Care 01 Condition: Good Clinical Impression: UTI, Urinary tract infectious disease - Discharge Information Prescriptions: Nitrofurantoin Monohyd/M-Cryst [Macrobid 100 mg Capsule] 100 mg PO BID #20 capsule Forms: ED Department Discharge Additional Instructions: The following information is given to patients seen in the emergency department who are being discharged to home. This information is to outline your options for follow-up care. We provide all patients seen in our emergency department with a follow-up referral. The need for follow-up, as well as the timing and circumstances, are variable depending upon the specifics of your emergency department visit. If you don't have a primary care physician on staff, we will provide you with a referral. We always advise you to contact your personal physician following an emergency department visit to inform them of the circumstance of the visit and for follow-up with them and/or the need for any referrals to a consulting specialist. The emergency department will also refer you to a specialist when appropriate. This referral assures that you have the opportunity for follow-up care with a specialist. All of these measure are taken in an effort to provide you with optimal care, which includes your follow-up. Under all circumstances we always encourage you to contact your private physician who remains a resource for coordinating your care. When calling for follow-up care, please make the office aware that this follow-up is from your recent emergency room visit. If for any reason you are refused follow-up, please contact the [facility] Emergency Department at and asked to speak to the emergency department charge nurse. Take medication as directed Follow-up with PCP in 1-2 days Return to ED as needed as discussed - My Orders Last 24 Hours: My Active Orders 10/19/16 12:30 Sodium Chloride 0.9% [Normal Saline] 1,000 ml IV ASDIRECTED 10/19/16 13:32 Abdomen Pelvis w Cont [CT] Stat - Assessment/Plan Last 24 Hours: My Active Orders 10/19/16 12:30 Sodium Chloride 0.9% [Normal Saline] 1,000 ml IV ASDIRECTED 10/19/16 13:32 Abdomen Pelvis w Cont [CT] Stat
[2016-10-19] MEDS ORDERED: Sodium Chloride 0.9% 1,000 ML IV SCH (12:30)
[2016-10-19 13:08] LABS: CHLORIDE,CL 98 mmol/L (98-110); SODIUM,NA 133 mmol/L (136-146)
[2016-10-19] MEDS ORDERED: Insulin Regular, Human 100 Units/ML 10 ML Vial IVPUSH ONE (13:29)
[2016-10-19] MEDS ORDERED: cloNIDine 0.1 MG Tab PO ONE (13:57)
[2016-10-19] MEDS ORDERED: Iopamidol 755 MG/ML 500 ML Multipack Bottle IVPUSH STA (15:05)
[2016-10-19 16:32] VITALS: BP 157/70
--- NOTE | 2016-10-21 13:01 | CT ---
EXAM DATE: 10/19/16 PATIENT'S AGE: 56 Patient: АННА LR Facility: [place], [place] Site . Site : [id number] Study: CT Abdomen/Pelvis [id number] 3:15:22 PM Ordering Physician: Doctor Levine Final Report: INDICATION: Abdominal pain. TECHNIQUE: CT abdomen and pelvis acquired with 90 cc Isovue 370 IV contrast. COMPARISON: November 06, 2013. FINDINGS: LOWER CHEST: Unremarkable. LIVER: Unremarkable. Normal in size and attenuation. No masses. GALLBLADDER AND BILE DUCTS: Unremarkable. No stones or inflammation. No biliary dilatation. PANCREAS: Unremarkable. No mass or inflammation. SPLEEN: Unremarkable. Normal in size. No masses. ADRENAL GLANDS: Unremarkable. No nodules. KIDNEYS: Unremarkable. No masses, stones, or hydronephrosis. GI TRACT: Unremarkable. Normal in caliber. No sign of mass or inflammation. Normal appendix. VASCULATURE: Unremarkable. LYMPH NODES: No lymphadenopathy. OMENTUM/PERITONEUM: Unremarkable. No sign of mass or infiltration. No free air or significant free fluid. PELVIS: Unremarkable. BONES: There is hardware internal fixation of an intertrochanteric right hip fracture. Otherwise unremarkable. IMPRESSION: No acute or significant findings to explain abdominal pain. Please note that all CT scans at this facility use dose modulation, iterative reconstruction, and/or weight-based dosing when appropriate to reduce radiation dose to as low as reasonably achievable. Dictated by Rigoberto Gilbert MD @ Oct 19 2016 3:42PM (Electronic Signature) Report Signed by Proxy. MARGARITA
== END 2016-10-19 16:28 | disposition home or self-care (01) ==
LOC: MW.ED 11:33
DX: N39.0 Urinary tract infection, site not specified (principal); I10 Essential (primary) hypertension; E10.9 Type 1 diabetes mellitus without complications; Z91.030 Bee allergy status; Z79.899 Other long term (current) drug therapy; Z98.49 Cataract extraction status, unspecified eye
CPT/HCPCS: 36415; 74177; 80053; 81001; 82962; 85025; 96361; 96374; 99284; A9270; J7040; Q9967; 99283; J1815-GY

== ENCOUNTER 2016-10-21 12:49 | Emergency (ER) | payer BC, OTHER ==
[2016-10-21] MEDS ORDERED: Sodium Chloride 0.9% 1,000 ML IV ONE (12:58)
[2016-10-21] MEDS ORDERED: Ondansetron 4 MG/2 ML SDV IVPUSH ONE (12:58)
[2016-10-21] MEDS ORDERED: Ketorolac 30 MG/ML SDV IVPUSH ONE (12:58)
--- NOTE | 2016-10-21 13:01 | EDM.PDOC ---
ED HPI GENERAL MEDICAL PROBLEM - General Stated Complaint: ABDOMINAL PAIN Time Seen by Provider: 10/21/16 13:00 - History of Present Illness INITIAL COMMENTS - FREE TEXT/NARRATIVE: HISTORY AND PHYSICAL: History of present illness: []Patient presents with right lower quadrant pain from [facility] She was actually seen here Jose with similar symptoms and a negative evaluation other than UTI. CT abdomen pelvis performed along with CBC CMP and UA Today she states she has had some nausea and vomiting as well as loose stools with an increase of right lower quadrant pain and presented to [facility] as above with chest pain shortness breath headache dizziness or palpitation no bowel or urine symptoms Review of systems: As per history of present illness and below otherwise all systems reviewed and negative. Past medical history: As per history of present illness and as reviewed below otherwise noncontributory. Surgical history: As per history of present illness and as reviewed below otherwise noncontributory. Social history: No reported history of drug or alcohol abuse. Family history: As per history of present illness and as reviewed below otherwise noncontributory. Physical exam: HEENT: Atraumatic, normocephalic, pupils reactive, negative for conjunctival pallor or scleral icterus, mucous membranes moist, throat clear, neck supple, nontender, trachea midline. Lungs: Clear to auscultation, breath sounds equal bilaterally, chest nontender. Heart: S1S2, regular, negative for clicks, rubs, or JVD. Abdomen: Soft, nondistended, nontender. Negative for masses or hepatosplenomegaly. Negative for costovertebral tenderness. Pelvis: Stable nontender. Genitourinary: Deferred. Rectal: Deferred. Extremities: Atraumatic, negative for cords or calf pain. Neurovascular unremarkable. Neuro: Awake, alert, oriented. Cranial nerves II through XII unremarkable. Cerebellum unremarkable. Motor and sensory unremarkable throughout. Exam nonfocal. Diagnostics: []Lab as below EKG CT abdomen pelvis with contrast Therapeutics: []1 L normal saline bolus Zofran 8 mg IV Toradol 30 mg IV Continue antibiotics/Bactrim Impression: []Abdominal pain UTI Definitive disposition and diagnosis as appropriate pending reevaluation and review of above. Back Pain Score (Numeric/FACES): 9 - Related Data Allergies Allergy/AdvReac Type Severity Reaction Status Date / Time bee stings Allergy Swelling Uncoded 10/19/16 11:46 Home Meds: Home Meds Humalog 2 units SQ ASDIRECTED PRN 09/06/13 [History] Insulin Glarg,Human.Rec.Analog [Lantus Solostar] 30 unit SUBCUT DAILY 09/06/13 [ History] Lisinopril 20 mg PO DAILY 09/06/13 [History] Escitalopram [Lexapro] 10 mg PO DAILY 11/06/13 [History] Metoprolol Succinate [Toprol XL] 25 mg PO DAILY 11/06/13 [History] Acetaminophen/HYDROcodone [[place] 325-10 MG] 1 tab PO Q4H PRN #80 tablet [Rx] Levofloxacin [Levaquin] 750 mg PO DAILY #3 tablet 10/09/16 [Rx] Rivaroxaban [Xarelto] 10 mg PO DAILY #28 tablet 10/09/16 [Rx] Nitrofurantoin Monohyd/M-Cryst [Macrobid 100 mg Capsule] 100 mg PO BID #20 capsule 10/19/16 [Rx] Sulfamethoxazole/Trimethoprim [Sulfamethoxazole-Tmp Ds Tablet] 800 mg BID [History] Past Medical History HEENT History: Reports: None, Cataract Cardiovascular History: Reports: Arrhythmia, Hypertension Genitourinary History: Reports: None Musculoskeletal History: Reports: Arthritis, Other (See Below) Psychiatric History: Reports: Anxiety Endocrine/Metabolic History: Reports: Diabetes, Type I Oncologic (Cancer) History: Reports: None Dermatologic History: Reports: None - Infectious Disease History Infectious Disease History: Reports: Chicken Pox, MRSA (ankle wound ~5 years ago ) - Past Surgical History HEENT Surgical History: Reports: Cataract Surgery Female Surgical History: Reports: Tubal Ligation Dermatological Surgical History: Reports: Skin Graft Social & Family History - Family History Family Medical History: Noncontributory - Tobacco Use Smoking Status *Q: Never Smoker Second Hand Smoke Exposure: Yes - Caffeine Use Caffeine Use: Reports: None - Alcohol Use Days Per Week of Alcohol Use: 0 Number of Drinks Per Day: 4 Total Drinks Per Week: 0 - Recreational Drug Use Recreational Drug Use: No ED ROS GENERAL - Review of Systems Review Of Systems: ROS reveals no pertinent complaints other than HPI. ED EXAM, GENERAL - Physical Exam Exam: See Below Course - Vital Signs Last Recorded V/S: Last Vital Signs Temp 37.6 C 07/10/17 13:15 Pulse 80 10/21/16 13:15 Resp 20 10/21/16 13:15 BP 131/61 10/21/16 13:15 Pulse Ox 98 10/21/16 13:15 - Orders/Labs/Meds Orders: Active Orders 24 hr Category Date Time Status EKG Documentation Completion [RC] STAT Care 10/21/16 12:58 Active UA W/MICROSCOPIC [URIN] Stat Lab 10/21/16 14:55 Results Labs: Laboratory Tests 10/21/16 10/21/16 10/21/16 Range/Units 13:06 13:06 13:06 WBC 11.04 H (4.0-11.0) K/uL RBC 4.11 L (4.30-5.90) M/uL Hgb 12.6 (12.0-16.0) g/dL Hct 37.7 (36.0-46.0) % MCV 91.7 (80.0-98.0) fL MCH 30.7 (27.0-32.0) pg MCHC 33.4 (31.0-37.0) g/dL RDW Std Deviation 44.9 (28.0-62.0) fl RDW Coeff of Mahesh 14 (11.0-15.0) % Plt Count 603 H (150-400) K/uL MPV 9.50 (7.40-12.00) fL Neut % (Auto) 76.1 (48.0-80.0) % Lymph % (Auto) 11.0 L (16.0-40.0) % [place] % (Auto) 9.6 (0.0-15.0) % Eos % (Auto) 3.0 (0.0-7.0) % Baso % (Auto) 0.3 (0.0-1.5) % Neut # (Auto) 8.4 H (1.4-5.7) K/uL Lymph # (Auto) 1.2 (0.6-2.4) K/uL [place] # (Auto) 1.1 H (0.0-0.8) K/uL Eos # (Auto) 0.3 (0.0-0.7) K/uL Baso # (Auto) 0.0 (0.0-0.1) K/uL Nucleated RBC % 0.0 /100WBC Nucleated RBCs # 0 K/uL ABG pH (7.35-7.45) ABG pCO2 (35-45) mmHG ABG pO2 (75-100) mmHG ABG HCO3 (22-26) mEq/L ABG Total CO2 ABG Base Excess (-2.0-2.0) Sodium 138 (136-146) mmol/L Potassium 3.6 (3.5-5.1) mmol/L Chloride 102 (98-110) mmol/L Carbon Dioxide 24 (21-31) mmol/L BUN 30 H (6.0-23.0) mg/dL Creatinine 1.2 (0.6-1.5) mg/dL Est Cr Clr Drug Dosing TNP Estimated GFR (MDRD) 46.6 ml/min Glucose 101 (60-110) mg/dL Calcium 9.8 (8.8-10.8) mg/dL Total Bilirubin 0.5 (0.1-1.5) mg/dL AST 21 (5-40) IU/L ALT 36 (8-54) IU/L Alkaline Phosphatase 138 (40-150) Troponin I < 0.10 (0.0-0.29) NG/ML Total Protein 6.8 (6.0-8.0) g/dL Albumin 3.7 (3.5-5.0) g/dL Globulin 3.1 (2.0-3.5) g/dL Albumin/Globulin Ratio 1.2 L (1.3-2.8) Amylase (10-90) U/L Lipase (7-80) U/L Urine Color Urine Appearance Urine pH (5.0-8.0) Ur Specific [place] (1.001-1.035) Urine Protein (NEGATIVE) mg/dL Urine Glucose (UA) (NEGATIVE) mg/dL Urine Ketones (NEGATIVE) mg/dL Urine Occult Blood (NEGATIVE) Urine Nitrite (NEGATIVE) Urine Bilirubin (NEGATIVE) Urine Urobilinogen (<2.0) EU/dL Ur Leukocyte Esterase (NEGATIVE) 10/21/16 10/21/16 10/21/16 Range/Units 13:06 13:20 14:55 WBC (4.0-11.0) K/uL RBC (4.30-5.90) M/uL Hgb (12.0-16.0) g/dL Hct (36.0-46.0) % MCV (80.0-98.0) fL MCH (27.0-32.0) pg MCHC (31.0-37.0) g/dL RDW Std Deviation (28.0-62.0) fl RDW Coeff of Mahesh (11.0-15.0) % Plt Count (150-400) K/uL MPV (7.40-12.00) fL Neut % (Auto) (48.0-80.0) % Lymph % (Auto) (16.0-40.0) % [place] % (Auto) (0.0-15.0) % Eos % (Auto) (0.0-7.0) % Baso % (Auto) (0.0-1.5) % Neut # (Auto) (1.4-5.7) K/uL Lymph # (Auto) (0.6-2.4) K/uL [place] # (Auto) (0.0-0.8) K/uL Eos # (Auto) (0.0-0.7) K/uL Baso # (Auto) (0.0-0.1) K/uL Nucleated RBC % /100WBC Nucleated RBCs # K/uL ABG pH 7.495 H (7.35-7.45) ABG pCO2 32 L (35-45) mmHG ABG pO2 66 L (75-100) mmHG ABG HCO3 25 (22-26) mEq/L ABG Total CO2 22.1 ABG Base Excess 1.5 (-2.0-2.0) Sodium (136-146) mmol/L Potassium (3.5-5.1) mmol/L Chloride (98-110) mmol/L Carbon Dioxide (21-31) mmol/L BUN (6.0-23.0) mg/dL Creatinine (0.6-1.5) mg/dL Est Cr Clr Drug Dosing Estimated GFR (MDRD) ml/min Glucose (60-110) mg/dL Calcium (8.8-10.8) mg/dL Total Bilirubin (0.1-1.5) mg/dL AST (5-40) IU/L ALT (8-54) IU/L Alkaline Phosphatase (40-150) Troponin I (0.0-0.29) NG/ML Total Protein (6.0-8.0) g/dL Albumin (3.5-5.0) g/dL Globulin (2.0-3.5) g/dL Albumin/Globulin Ratio (1.3-2.8) Amylase 56 (10-90) U/L Lipase 60 (7-80) U/L Urine Color YELLOW Urine Appearance CLEAR Urine pH 5.5 (5.0-8.0) Ur Specific [place] <= 1.005 (1.001-1.035) Urine Protein TRACE (NEGATIVE) mg/dL Urine Glucose (UA) 100 H (NEGATIVE) mg/dL Urine Ketones NEGATIVE (NEGATIVE) mg/dL Urine Occult Blood TRACE-INTACT (NEGATIVE) Urine Nitrite NEGATIVE (NEGATIVE) Urine Bilirubin NEGATIVE (NEGATIVE) Urine Urobilinogen 0.2 (<2.0) EU/dL Ur Leukocyte Esterase SMALL (NEGATIVE) Meds: Medications Discontinued Medications Generic Name Dose Route Start Last Admin Trade Name Samiq PRN Reason Stop Dose Admin Sodium Chloride 1,000 mls @ 999 mls/hr 10/21/16 12:58 10/21/16 13:24 Normal Saline IV 10/21/16 13:58 999 mls/hr STAT ONE Administration Ketorolac Tromethamine 30 mg 10/21/16 12:58 10/21/16 13:23 Toradol IVPUSH 10/21/16 12:59 30 mg ONETIME ONE Administration Ondansetron HCl 8 mg 10/21/16 12:58 10/21/16 13:23 Zofran IVPUSH 10/21/16 12:59 8 mg ONETIME ONE Administration Departure - Departure Time of Disposition: 15:21 Disposition: Home, Self-Care 01 Condition: Good Clinical Impression: Abdominal pain - Discharge Information Additional Instructions: Continue medication as prescribed Follow-up with primary care in one week sooner as needed The following information is given to patients seen in the emergency department who are being discharged to home. This information is to outline your options for follow-up care. We provide all patients seen in our emergency department with a follow-up referral. The need for follow-up, as well as the timing and circumstances, are variable depending upon the specifics of your emergency department visit. If you don't have a primary care physician on staff, we will provide you with a referral. We always advise you to contact your personal physician following an emergency department visit to inform them of the circumstance of the visit and for follow-up with them and/or the need for any referrals to a consulting specialist. The emergency department will also refer you to a specialist when appropriate. This referral assures that you have the opportunity for follow-up care with a specialist. All of these measure are taken in an effort to provide you with optimal care, which includes your follow-up. Under all circumstances we always encourage you to contact your private physician who remains a resource for coordinating your care. When calling for follow-up care, please make the office aware that this follow-up is from your recent emergency room visit. If for any reason you are refused follow-up, please contact the [facility] emergency department at and asked to speak to the emergency department charge nurse. - My Orders Last 24 Hours: My Active Orders 10/21/16 12:58 EKG Documentation Completion [RC] STAT 10/21/16 14:55 UA W/MICROSCOPIC [URIN] Stat - Assessment/Plan Last 24 Hours: My Active Orders 10/21/16 12:58 EKG Documentation Completion [RC] STAT 10/21/16 14:55 UA W/MICROSCOPIC [URIN] Stat
[2016-10-21 13:48] LABS: CHLORIDE,CL 102 mmol/L (98-110); SODIUM,NA 138 mmol/L (136-146)
--- NOTE | 2016-10-21 14:34 | CT ---
CT of the abdomen and pelvis without contrast. HISTORY: Right lower quadrant pain TECHNIQUE: Axial CT images were obtained of the abdomen and pelvis without contrast. Coronal and sag ittal reconstructions obtained. FINDINGS: The lung bases are clear, no pleural effusion. The liver, spleen, adrenal glands, and pancreas appear unremarkable for noncontrast examination. The gallbladder appears normal. There is no bulky retroperitoneal lymphadenopathy. No abdominal ascite s. There are no calcifications noted within the kidneys or along the courses of the ureters bilaterally . The large and small bowel are normal in caliber without evidence of obstruction. The appendix appear s normal. Mild diverticulosis without evidence of diverticulitis. There is no bulky pelvic lymphaden opathy. No free fluid. No free air. The urinary bladder appears normal. Healing subacute right rib fractures noted. There is an intertrochanteric fracture involving the rig ht proximal femur with hardware fixation. IMPRESSION: 1. The appendix appears normal. 2. No acute intra-abdominal findings. 3. Healing posterior right rib fractures. 4. Hardware fixation of a right intertrochanteric fracture.
[2016-10-21 16:59] VITALS: BP 155/60
== END 2016-10-21 15:50 | disposition home or self-care (01) ==
LOC: MW.ED 12:49
DX: R10.31 Right lower quadrant pain (principal); R11.2 Nausea with vomiting, unspecified; E10.8 Type 1 diabetes mellitus with unspecified complications; I49.9 Cardiac arrhythmia, unspecified; I10 Essential (primary) hypertension; F41.9 Anxiety disorder, unspecified; Z79.899 Other long term (current) drug therapy; Z79.4 Long term (current) use of insulin
CPT/HCPCS: 36415; 36600; 74176; 80053; 81001; 82150; 82803; 83690; 84484; 85025; 93005; 96361; 96374; 96375; 99284; J1885; J2405; J7040

== ENCOUNTER 2017-03-13 12:14 | Emergency (ER) | payer BC ==
[2017-03-13] MEDS ORDERED: Sodium Chloride 0.9% 2.5 ML Syringe FLUSH PRN (12:35)
[2017-03-13] MEDS ORDERED: Sodium Chloride 0.9% 10 ML Syringe FLUSH PRN (12:35)
--- NOTE | 2017-03-13 12:37 | EDM.PDOC ---
ED HPI GENERAL MEDICAL PROBLEM - General Chief Complaint: Respiratory Problem Stated Complaint: INFECTED LEFT GREAT TOE Time Seen by Provider: 03/13/17 12:36 Source of Information: Reports: Patient History Limitations: Reports: No Limitations - History of Present Illness INITIAL COMMENTS - FREE TEXT/NARRATIVE: HISTORY AND PHYSICAL: [56-year-old female presenting with infected great toe History of Present Illness: []The sensation has been off and on for the last week his systolic went away she 's quite anxious Review of Systems: As per history of present illness and below otherwise all systems reviewed and negative. Past medical history: As per history of present illness and as reviewed below otherwise noncontributory. Surgical history: As per history of present illness and as reviewed below otherwise noncontributory. Social history: No reported history of drug or alcohol abuse. Family history: As per history of present illness and as reviewed below otherwise noncontributory. Physical exam: Skin is warm and dry HEENT: Atraumatic, normocehpalic, pupils reactive, negative for conjunctival pallor or scleral icterus, mucous membranes moist, throat clear, neck supple, nontender, trachea midline. PERRLA Lungs: Clear to auscultation, breath sounds equal bilaterally, chest non tender. Heart: S1S2, regular, negative for clicks, rubs, or JVD. Abdomen: Soft, nondistended, nontender. Negative for masses or hepatossplenmegaly. Negative for costovertebral tenderness. Pelvis: Stable nontender. Genitourinary: Deferred. Rectal: Deferred Extremities: Atraumatic, negative for cords or calf pain. Neurovascular unremarkable. Neuro: Awake, alert, oriented. Cranial nerves II through XII unremarkable. Cerebellum unremarkable. Motor and sensory unremarkable throughout. Exam nonfocal. Diagnostics: [] Therapeutics: [] Impression: [] Plan: [] Definitive disposition and diagnosis as appropriate pending reevaluation and review of above. Onset: Gradual Duration: Day(s): Severity: Moderate - Related Data Allergies Allergy/AdvReac Type Severity Reaction Status Date / Time bee stings Allergy Swelling Uncoded 03/13/17 12:52 Home Meds: Home Meds Aspirin 81 mg PO DAILY 03/13/17 [History] Carvedilol 12.5 mg PO DAILY 03/13/17 [History] Cephalexin 750 mg PO BID #20 capsule 03/13/17 [Rx] Escitalopram [Lexapro] 10 mg PO DAILY 03/13/17 [History] Gabapentin [Neurontin] 600 mg PO DAILY 03/13/17 [History] Hydrochlorothiazide 25 mg PO DAILY 03/13/17 [History] Insulin Detemir [Levemir] 30 units SQ DAILY 03/13/17 [History] Insulin Lispro [Humalog Kwikpen U-100] unit SQ PRN 03/13/17 [History] Losartan [Cozaar] 100 mg PO DAILY 03/13/17 [History] Nitrofurantoin Macrocrystal [Macrodantin] 500 ng PO DAILY 03/13/17 [History] Salsalate 1 tab PO BID PRN 03/13/17 [History] traMADol [Ultram] 1 tab PO Q4H PRN 03/13/17 [History] Past Medical History HEENT History: Reports: None, Cataract Cardiovascular History: Reports: Arrhythmia, Hypertension Genitourinary History: Reports: None Musculoskeletal History: Reports: Arthritis, Other (See Below) Psychiatric History: Reports: Anxiety Endocrine/Metabolic History: Reports: Diabetes, Type I Oncologic (Cancer) History: Reports: None Dermatologic History: Reports: None - Infectious Disease History Infectious Disease History: Reports: Chicken Pox, MRSA (ankle wound ~5 years ago ) - Past Surgical History HEENT Surgical History: Reports: Cataract Surgery Female Surgical History: Reports: Tubal Ligation Dermatological Surgical History: Reports: Skin Graft Social & Family History - Family History Family Medical History: Noncontributory - Tobacco Use Smoking Status *Q: Never Smoker Second Hand Smoke Exposure: Yes - Caffeine Use Caffeine Use: Reports: None - Alcohol Use Days Per Week of Alcohol Use: 0 Number of Drinks Per Day: 4 Total Drinks Per Week: 0 - Recreational Drug Use Recreational Drug Use: No ED ROS GENERAL - Review of Systems Review Of Systems: ROS reveals no pertinent complaints other than HPI. ED EXAM, GENERAL - Physical Exam Exam: See Below Course - Vital Signs Last Recorded V/S: Last Vital Signs Temp 37.1 C 03/13/17 12:49 Pulse 90 03/13/17 12:49 Resp 16 03/13/17 12:49 BP 127/62 03/13/17 12:49 Pulse Ox 97 03/13/17 12:49 - Orders/Labs/Meds Orders: Active Orders 24 hr Category Date Time Status Blood Glucose Check, Bedside [RC] ONETIME Care 03/13/17 12:35 Active EKG Documentation Completion [RC] STAT Care 03/13/17 12:35 Inactive CULTURE BLOOD [BC] Stat Lab 03/13/17 12:55 Received CULTURE BLOOD [BC] Stat Lab 03/13/17 13:06 Received CULTURE WOUND [RM] Stat Lab 03/13/17 13:18 Received Bacitracin [Bacitracin Oint 1 GM] Med 03/13/17 14:39 Once 1 dose TOP ONETIME ONE Insulin Regular, Human [NovoLIN R] Med 03/13/17 14:38 Once 3 unit IVPUSH ONETIME ONE Sodium Chloride 0.9% [Saline Flush] Med 03/13/17 12:35 Active 10 ml FLUSH ASDIRECTED PRN Sodium Chloride 0.9% [Saline Flush] Med 03/13/17 12:35 Active 2.5 ml FLUSH ASDIRECTED PRN Blood Culture x2 Reflex Set [OM.PC] Stat Oth 03/13/17 12:50 Ordered Saline Lock Insert [OM.PC] Stat Oth 03/13/17 12:35 Ordered Medication Orders Sodium Chloride (Saline Flush) 10 ml FLUSH ASDIRECTED PRN PRN Reason: Keep Vein Open Last Admin: 03/13/17 13:11 Dose: 10 ml Sodium Chloride (Saline Flush) 2.5 ml FLUSH ASDIRECTED PRN PRN Reason: Keep Vein Open Last Admin: 03/13/17 13:12 Dose: 2.5 ml Labs: Laboratory Tests 03/13/17 03/13/17 03/13/17 Range/Units 12:50 12:55 12:55 WBC 11.61 H (4.0-11.0) K/uL RBC 4.27 L (4.30-5.90) M/uL Hgb 12.8 (12.0-16.0) g/dL Hct 38.5 (36.0-46.0) % MCV 90.2 (80.0-98.0) fL MCH 30.0 (27.0-32.0) pg MCHC 33.2 (31.0-37.0) g/dL RDW Std Deviation 42.8 (28.0-62.0) fl RDW Coeff of Mahesh 13 (11.0-15.0) % Plt Count 288 (150-400) K/uL MPV 10.80 (7.40-12.00) fL Neut % (Auto) 78.1 (48.0-80.0) % Lymph % (Auto) 9.6 L (16.0-40.0) % Wolfe % (Auto) 7.7 (0.0-15.0) % Eos % (Auto) 4.4 (0.0-7.0) % Baso % (Auto) 0.2 (0.0-1.5) % Neut # (Auto) 9.1 H (1.4-5.7) K/uL Lymph # (Auto) 1.1 (0.6-2.4) K/uL Wolfe # (Auto) 0.9 H (0.0-0.8) K/uL Eos # (Auto) 0.5 (0.0-0.7) K/uL Baso # (Auto) 0.0 (0.0-0.1) K/uL Nucleated RBC % 0.0 /100WBC Nucleated RBCs # 0 K/uL Sodium 136 (136-146) mmol/L Potassium 3.8 (3.5-5.1) mmol/L Chloride 99 (98-110) mmol/L Carbon Dioxide 26 (21-31) mmol/L BUN 33 H (6.0-23.0) mg/dL Creatinine 1.0 (0.6-1.5) mg/dL Est Cr Clr Drug Dosing 61.81 mL/min Estimated GFR (MDRD) 57.6 ml/min Glucose 270 H (60-110) mg/dL POC Glucose 214 H (60-110) mg/dL Calcium 9.7 (8.8-10.8) mg/dL Total Bilirubin 0.6 (0.1-1.5) mg/dL AST 14 (5-40) IU/L ALT 17 (8-54) IU/L Alkaline Phosphatase 124 (40-150) Total Protein 7.4 (6.0-8.0) g/dL Albumin 3.7 (3.5-5.0) g/dL Globulin 3.7 H (2.0-3.5) g/dL Albumin/Globulin Ratio 1.0 L (1.3-2.8) Meds: Medications Generic Name Dose Route Start Last Admin Trade Name Cristofer PRN Reason Stop Dose Admin Sodium Chloride 10 ml 03/13/17 12:35 03/13/17 13:11 Saline Flush FLUSH 10 ml ASDIRECTED PRN Administration Keep Vein Open Sodium Chloride 2.5 ml 03/13/17 12:35 03/13/17 13:12 Saline Flush FLUSH 2.5 ml ASDIRECTED PRN Administration Keep Vein Open Discontinued Medications Generic Name Dose Route Start Last Admin Trade Name Cristofer PRN Reason Stop Dose Admin Sodium Chloride 1,000 mls @ 999 mls/hr 03/13/17 12:39 03/13/17 13:12 Normal Saline IV 03/13/17 13:39 999 mls/hr STAT ONE Administration Ceftriaxone Sodium/Dextrose 1 50 mls @ 100 mls/hr 03/13/17 13:18 03/13/17 13: 30 gm/ Premix IV 03/13/17 13:47 100 mls/hr ONETIME ONE Administration Insulin Human Regular 3 unit 03/13/17 14:38 Novolin R IVPUSH 03/13/17 14:39 ONETIME ONE Protocol Departure - Departure Time of Disposition: 14:40 Disposition: Home, Self-Care 01 Condition: Good Clinical Impression: Abrasion of great toe, left, infected Qualifiers: Encounter type: initial encounter Qualified Code(s): S90.412A - Abrasion, left great toe, initial encounter; L08.9 - Local infection of the skin and subcutaneous tissue, unspecified; L08.9 - Local infection of the skin and subcutaneous tissue, unspecified - Discharge Information Prescriptions: Cephalexin 750 mg PO BID #20 capsule Referrals: PCP,None [Primary Care Provider] - Mahendra Gibbons MD [Consulting Physician] - Forms: ED Department Discharge Additional Instructions: The following information is given to patients seen in the emergency department who are being discharged to home. This information is to outline your options for follow-up care. We provide all patients seen in our emergency department with a follow-up referral. The need for follow-up, as well as the timing and circumstances, are variable depending upon the specifics of your emergency department visit. If you don't have a primary care physician on staff, we will provide you with a referral. We always advise you to contact your personal physician following an emergency department visit to inform them of the circumstance of the visit and for follow-up with them and/or the need for any referrals to a consulting specialist. The emergency department will also refer you to a specialist when appropriate. This referral assures that you have the opportunity for followup care with a specialist. All of these measure are taken in an effort to provide you with optimal care, which includes your followup. Under all circumstances we always encourage you to contact your private physician who remains a resource for coordinating your care. When calling for followup care, please make the office aware that this follow-up is from your recent emergency room visit. If for any reason you are refused follow-up, please contact the [facility] emergency department at and asked to speak to the emergency department charge nurse. You have an infection in your great toe He received Rocephin antibiotic while in the emergency department You have elevated blood sugars while in the ER and were given insulin Recommend that you follow-up for possible discussion of a insulin pump Recommended to follow-up with a yarn conditioner and a sense you see Dr. Zee and I will make a referral to him Ascription has been sent to [address] [place] [address] for cephalexin 750 twice a day - My Orders Last 24 Hours: My Active Orders 03/13/17 12:35 Blood Glucose Check, Bedside [RC] ONETIME EKG Documentation Completion [RC] STAT Sodium Chloride 0.9% [Saline Flush] 10 ml FLUSH ASDIRECTED PRN Sodium Chloride 0.9% [Saline Flush] 2.5 ml FLUSH ASDIRECTED PRN Saline Lock Insert [OM.PC] Stat 03/13/17 12:50 Blood Culture x2 Reflex Set [OM.PC] Stat 03/13/17 12:55 CULTURE BLOOD [BC] Stat 03/13/17 13:06 CULTURE BLOOD [BC] Stat 03/13/17 13:18 CULTURE WOUND [RM] Stat 03/13/17 14:39 Bacitracin [Bacitracin Oint 1 GM] 1 dose TOP ONETIME ONE - Assessment/Plan Last 24 Hours: My Active Orders 03/13/17 12:35 Blood Glucose Check, Bedside [RC] ONETIME EKG Documentation Completion [RC] STAT Sodium Chloride 0.9% [Saline Flush] 10 ml FLUSH ASDIRECTED PRN Sodium Chloride 0.9% [Saline Flush] 2.5 ml FLUSH ASDIRECTED PRN Saline Lock Insert [OM.PC] Stat 03/13/17 12:50 Blood Culture x2 Reflex Set [OM.PC] Stat 03/13/17 12:55 CULTURE BLOOD [BC] Stat 03/13/17 13:06 CULTURE BLOOD [BC] Stat 03/13/17 13:18 CULTURE WOUND [RM] Stat 03/13/17 14:39 Bacitracin [Bacitracin Oint 1 GM] 1 dose TOP ONETIME ONE
[2017-03-13] MEDS ORDERED: Sodium Chloride 0.9% 1,000 ML IV ONE (12:39)
[2017-03-13] MEDS ORDERED: cefTRIAXone 1 GM in Premix Bag 1 BAG IV ONE (13:18)
--- NOTE | 2017-03-13 14:21 | CR ---
EXAMINATION: Left great toe HISTORY: Infection COMPARISON: 01/21/2016 TECHNIQUE: 3 views FINDINGS/IMPRESSION: Mild degenerative changes noted at the first interphalangeal joint and MTP joint without an acute osseous abdomen. Bone mineralization appears normal. Moderate soft tissue swelling is noted overlying the first digit without evidence of subcutaneous gas.
[2017-03-13] MEDS ORDERED: Insulin Regular, Human 100 Units/ML 10 ML Vial IVPUSH ONE (14:38)
[2017-03-13] MEDS ORDERED: Bacitracin Oint 1 GM U/D Packet TOP ONE (14:39)
[2017-03-13 15:39] VITALS: BP 151/68
== END 2017-03-13 15:35 | disposition home or self-care (01) ==
LOC: MW.ED 12:14
DX: S90.412A Abrasion, left great toe, initial encounter (principal); L08.9 Local infection of the skin and subcutaneous tissue, unspecified; I10 Essential (primary) hypertension; E10.9 Type 1 diabetes mellitus without complications; Z77.22 Contact with and (suspected) exposure to environmental tobacco smoke (acute) (chronic); Z79.82 Long term (current) use of aspirin; Z79.4 Long term (current) use of insulin; Z79.899 Other long term (current) drug therapy; Z91.030 Bee allergy status; X58.XXXA Exposure to other specified factors, initial encounter
CPT/HCPCS: 36415; 73660; 80053; 82962; 85025; 87040; 87070; 87077; 87186; 96361; 96365; 96375; 99284; J0696; J7040; J1815-GY

== ENCOUNTER 2018-08-29 00:38 | Emergency (ER) | payer BC ==
--- NOTE | 2018-08-29 01:06 | EDM.PDOC ---
ED HPI GENERAL MEDICAL PROBLEM - General Chief Complaint: Lower Extremity Injury/Pain Stated Complaint: AMB Time Seen by Provider: 08/29/18 01:03 - History of Present Illness INITIAL COMMENTS - FREE TEXT/NARRATIVE: HISTORY AND PHYSICAL: History of present illness: Patient's 58-year-old female presents with concern of right leg injury she denies any other complaint. Review of systems: As per history of present illness and below otherwise all systems reviewed and negative. Past medical history: As per history of present illness and as reviewed below otherwise noncontributory. Surgical history: As per history of present illness and as reviewed below otherwise noncontributory. Social history: No reported history of drug or alcohol abuse. Family history: As per history of present illness and as reviewed below otherwise noncontributory. Physical exam: HEENT: Atraumatic, normocephalic, pupils reactive, negative for conjunctival pallor or scleral icterus, mucous membranes moist, throat clear, neck supple, nontender, trachea midline. Lungs: Clear to auscultation, breath sounds equal bilaterally, chest nontender. Heart: S1S2, regular, negative for clicks, rubs, or JVD. Abdomen: Soft, nondistended, nontender. Negative for masses or hepatosplenomegaly. Negative for costovertebral tenderness. Pelvis: Stable nontender. Genitourinary: Deferred. Rectal: Deferred. Extremities: Patient has some small swelling noted proximal right leg is no crepitation localized tenderness noted mid right tibia and proximal fibula area neurovascular symptoms unremarkable she's got some scarring distally from prior trauma. Neuro: Awake, alert, oriented. Cranial nerves II through XII unremarkable. Cerebellum unremarkable. Motor and sensory unremarkable throughout. Exam nonfocal. Diagnostics: X-ray tib-fib CBC CMP PT/INR chest x-ray EKG EtOH Therapeutics: Long leg posterior mold Impression: #1 right lower extremity injury ( fracture tib-fib) Definitive disposition and diagnosis as appropriate pending reevaluation and review of above. Right Leg Pain Score (Numeric/FACES): 7 - Related Data Allergies Allergy/AdvReac Type Severity Reaction Status Date / Time bee stings Allergy Swelling Uncoded 08/29/18 01:01 Home Meds: Home Meds Carvedilol 12.5 mg PO DAILY 03/13/17 [History] Escitalopram [Lexapro] 10 mg PO DAILY 03/13/17 [History] Gabapentin [Neurontin] 600 mg PO DAILY 03/13/17 [History] Losartan [Cozaar] 100 mg PO DAILY 03/13/17 [History] Salsalate 1 tab PO BID PRN 03/13/17 [History] hydroCHLOROthiazide [Hydrochlorothiazide] 25 mg PO DAILY 03/13/17 [History] traMADol [Ultram] 1 tab PO ASDIRECTED PRN 03/13/17 [History] Insulin Lispro [HumaLOG] 1 unit SUBCUT ASDIRECTED 04/02/18 [History] Past Medical History HEENT History: Reports: None, Cataract Cardiovascular History: Reports: Arrhythmia, Hypertension Genitourinary History: Reports: None 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: Musculoskeletal History: Reports: Arthritis, Other (See Below) Psychiatric History: Reports: Anxiety Endocrine/Metabolic History: Reports: Diabetes, Type I Oncologic (Cancer) History: Reports: None Dermatologic History: Reports: None - Infectious Disease History Infectious Disease History: Reports: Chicken Pox, MRSA (ankle wound ~5 years ago ) - Past Surgical History HEENT Surgical History: Reports: Cataract Surgery Female Surgical History: Reports: Tubal Ligation Dermatological Surgical History: Reports: Skin Graft Social & Family History - Family History Family Medical History: Noncontributory - Caffeine Use Caffeine Use: Reports: None Review of Systems - Review of Systems Review Of Systems: ROS reveals no pertinent complaints other than HPI. ED EXAM, GENERAL - Physical Exam Exam: See Below (See dictation) Course - Vital Signs Last Recorded V/S: Last Vital Signs Temp 37.2 C 08/29/18 04:30 Pulse 83 08/29/18 05:40 Resp 18 08/29/18 05:40 BP 136/64 08/29/18 05:40 Pulse Ox 96 08/29/18 04:30 - Orders/Labs/Meds Meds: Medications Discontinued Medications Generic Name Dose Route Start Last Admin Trade Name Freq PRN Reason Stop Dose Admin Sodium Chloride 1,000 mls @ 999 mls/hr 08/29/18 04:38 08/29/18 04:45 Normal Saline IV 08/29/18 05:38 999 mls/hr .Bolus ONE Administration Departure - Departure Time of Disposition: 06:45 Disposition: DC/Tfer to Acute Hospital 02 Condition: Good Clinical Impression: Fractured tibia and fibula - Discharge Information Forms: ED Department Discharge
--- NOTE | 2018-08-29 02:28 | CR ---
INDICATION: Tibia pain following fall TECHNIQUE: Tibia-fibula radiograph 3 views right COMPARISON: None FINDINGS: Bone: There is a severely comminuted, segmental fracture involving the proximal tibia to the mid-diaphysis. A severely comminuted fracture of the proximal fibular head is also noted. Joint: The visualized knee and ankle joints are unremarkable. No significant joint effusion is seen. Soft tissue: Overlying fabric artifacts moderately limits the evaluation of the soft tissues. No radiopaque foreign bodies are seen. IMPRESSIONS: 1. There is a severely comminuted, segmental fracture involving the proximal tibia to the mid-diaphysis. 2. A severely comminuted fracture of the proximal fibular head is also noted. Dictated by Wilner Casiano MD @ 08/29/2018 2:25:58 AM Dictated by: Wilner Casiano MD @ 08/29/2018 02:26:05 (Electronically Signed)
[2018-08-29] MEDS ORDERED: Sodium Chloride 0.9% 1,000 ML IV ONE (04:38)
[2018-08-29] MEDS ORDERED: Piperacillin/Tazobactam 3.375 GM in Sodium Chloride 0.9% 50 ML IV ONE (07:22)
[2018-08-29 07:26] LABS: CHLORIDE,CL 108 mmol/L (98-107); SODIUM,NA 143 mmol/L (136-145)
--- NOTE | 2018-08-29 07:28 | CR ---
INDICATION: Shortness of breath. TECHNIQUE: AP portable chest x-ray. COMPARISON: Chest x-ray 10/08/2016. FINDINGS: Heart size is upper limits of normal and stable. No focal infiltrate or consolidation in either lung. Chest otherwise negative without acute disease. Dictated by Delvin Jose MD @ Aug 29 2018 7:26AM Signed by Dr. Delvin Jose @ Aug 29 2018 7:26AM
[2018-08-29] MEDS ORDERED: Sodium Chloride 0.9% 1,000 ML IV SCH (08:15)
[2018-08-29] MEDS ORDERED: Ondansetron 4 MG/2 ML SDV IVPUSH ONE (08:28)
[2018-08-29] MEDS ORDERED: Morphine 2 MG/ML Syringe IVPUSH ONE (08:28)
[2018-08-29 08:40] VITALS: BP 148/58
== END 2018-08-29 09:10 ==
LOC: MW.ED 00:38
DX: S82.831A Other fracture of upper and lower end of right fibula, initial encounter for closed fracture (principal); S82.101A Unspecified fracture of upper end of right tibia, initial encounter for closed fracture; F41.9 Anxiety disorder, unspecified; E10.9 Type 1 diabetes mellitus without complications; Z91.030 Bee allergy status; Z79.4 Long term (current) use of insulin; Z79.899 Other long term (current) drug therapy; Z98.49 Cataract extraction status, unspecified eye; Z98.51 Tubal ligation status; X58.XXXA Exposure to other specified factors, initial encounter
CPT/HCPCS: 29505; 36415; 71045; 73590; 80053; 81001; 82962; 83605; 85025; 85610; 87040; 93005; 96361; 96365; 96367; 96375; 99285; G0480; J2270; J2405; J2543; J3370; J7040; J7050; 99282

== ENCOUNTER 2019-08-15 09:34 | Emergency (ER) | payer BC, OTHER ==
[2019-08-15] MEDS ORDERED: Acetaminophen/HYDROcodone 325-10 MG Tab PO ONE (09:46)
--- NOTE | 2019-08-15 10:23 | EDM.PDOC ---
ED HPI GENERAL MEDICAL PROBLEM - General Chief Complaint: Lower Extremity Injury/Pain Stated Complaint: FALL Time Seen by Provider: 08/15/19 09:36 - History of Present Illness INITIAL COMMENTS - FREE TEXT/NARRATIVE: 59-year-old female with history of multiple medical problems as noted who is presenting with acute left hip pain that worsens with direct pressure and ambulation started after waking up from a alcohol related blackout. Patient states that last night she did go out and have a number of years as it was the first week and night that the bars were open again after the quarantine. Patient has a number of gaps in her memory she remembers going home she remembers ordering pizza. She remembers going to bed. However she woke up somewhere else in her home she not sure if it was on the floor on the couch. She was somewhat confused and could not recall events in the middle of the night. She went back to bed and has not persistent severe right hip pain. She does not recall a fall. No headache no lightheadedness no dizziness no chest pain no abdominal pain no other extremity pain. Right Upper Leg Pain Score (Numeric/FACES): 7 - Related Data Allergies Allergy/AdvReac Type Severity Reaction Status Date / Time bee stings Allergy Swelling Uncoded 08/15/19 09:51 Home Meds: Home Meds Escitalopram [Lexapro] 10 mg PO DAILY 03/13/17 [History] Gabapentin [Neurontin] 600 mg PO DAILY 03/13/17 [History] Losartan [Cozaar] 100 mg PO DAILY 03/13/17 [History] Salsalate 1 tab PO BID PRN 03/13/17 [History] carvediloL [Carvedilol] 12.5 mg PO DAILY 03/13/17 [History] hydroCHLOROthiazide [Hydrochlorothiazide] 25 mg PO DAILY 03/13/17 [History] traMADol [Ultram] 1 tab PO ASDIRECTED PRN 03/13/17 [History] Insulin Lispro [HumaLOG] 1 unit SUBCUT ASDIRECTED 04/02/18 [History] Past Medical History HEENT History: Reports: None, Cataract Cardiovascular History: Reports: Arrhythmia, Hypertension Respiratory History: Reports: None Gastrointestinal History: Reports: None Genitourinary History: Reports: None 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 History: Reports: Musculoskeletal History: Reports: Arthritis, Other (See Below) Neurological History: Reports: None Psychiatric History: Reports: Anxiety Endocrine/Metabolic History: Reports: Diabetes, Type I Hematologic History: Reports: None Immunologic History: Reports: None Oncologic (Cancer) History: Reports: None Dermatologic History: Reports: None - Infectious Disease History Infectious Disease History: Reports: Chicken Pox, MRSA - Past Surgical History Head Surgeries/Procedures: Reports: None HEENT Surgical History: Reports: Cataract Surgery Female Surgical History: Reports: Tubal Ligation Dermatological Surgical History: Reports: Skin Graft Social & Family History - Family History Family Medical History: Noncontributory - Tobacco Use Smoking Status *Q: Never Smoker - Caffeine Use Caffeine Use: Reports: Coffee, Soda - Recreational Drug Use Recreational Drug Use: No Review of Systems - Review of Systems Review Of Systems: Comprehensive ROS is negative, except as noted in HPI. ED EXAM, GENERAL - Physical Exam Exam: See Below Free Text/Narrative:: General Appearance: No acute distress, appears comfortable Skin: No rash HEENT: Normocephalic/atraumatic, sclera anicteric, mucous membranes moist Neck: Normal range of motion Chest and Lungs: Normal work of breathing Cardiovascular: Intact distal perfusion Abdomen: Soft, non-tender Back: Normal Musculoskeletal: Right lower extremity neurovascularly intact no focal tenderness swelling or deformity is noted in the right ankle of the right knee there is focal tenderness over the right greater trochanter of the femur. She has no significant discomfort with passive range of motion of the hip joint which is relatively full and easy. Neurologic: Awake, alert, no obvious deficits, moving all extremities Psychiatric: Appropriate, cooperative Course - Vital Signs Last Recorded V/S: Last Vital Signs Temp 98.6 F 08/15/19 09:53 Pulse 89 08/15/19 09:53 Resp 15 08/15/19 09:53 BP 137/65 08/15/19 09:53 Pulse Ox 92 L 08/15/19 09:53 - Orders/Labs/Meds Meds: Medications Discontinued Medications Generic Name Dose Route Start Last Admin Trade Name Freq PRN Reason Stop Dose Admin Hydrocodone Bitart/Acetaminophen 1 tab 08/15/19 09:46 08/15/19 10:18 Charlotte 325-10 Mg PO 08/15/19 09:47 1 tab ONETIME ONE Administration Departure - Departure Time of Disposition: 10:58 Disposition: Home, Self-Care 01 Condition: Good Clinical Impression: Hip pain - Discharge Information *PRESCRIPTION DRUG MONITORING PROGRAM REVIEWED*: Not Applicable *COPY OF PRESCRIPTION DRUG MONITORING REPORT IN PATIENT FATEMEH: Not Applicable Instructions: Hip Pain Referrals: Monique Lyn MD [Primary Care Provider] - Christos Aceves DO [Physician] - Forms: ED Department Discharge Additional Instructions: As we discussed I recommend that you use your walker for the next few days to provide better stability. As your symptoms improve you can transition to a cane. Please try and live your life as best you can. Laying around can prolong your recovery. I would not be surprised if you developed a bruise on the outside of your hip. But if you develop any other new concerning or worsening symptoms I encourage you to call your doctor or return to emergency department. If your symptoms gradually improve and you feel like you are back to normal you do not need to see the orthopedic surgeon. However, if you are still having symptoms I encourage you to follow-up with him. The following information is given to patients seen in the emergency department who are being discharged to home. This information is to outline your options for follow-up care. We provide all patients seen in our emergency department with a follow-up referral. The need for follow-up, as well as the timing and circumstances, are variable depending upon the specifics of your emergency department visit. If you don't have a primary care physician on staff, we will provide you with a referral. We always advise you to contact your personal physician following an emergency department visit to inform them of the circumstance of the visit and for follow-up with them and/or the need for any referrals to a consulting specialist. The emergency department will also refer you to a specialist when appropriate. This referral assures that you have the opportunity for follow-up care with a specialist. All of these measure are taken in an effort to provide you with optimal care, which includes your follow-up. Under all circumstances we always encourage you to contact your private physician who remains a resource for coordinating your care. When calling for follow-up care, please make the office aware that this follow-up is from your recent emergency room visit. If for any reason you are refused follow-up, please contact the [facility] Emergency Department at and asked to speak to the emergency department charge nurse. Sepsis Event Note - Evaluation Sepsis Screening Result: No Definite Risk - Focused Exam Vital Signs: Vital Signs Temp Pulse Resp BP Pulse Ox 08/15/19 09:53 98.6 F 89 15 137/65 92 L Date Exam was Performed: 08/15/19 Time Exam was Performed: 10:58 - Assessment/Plan Assessment:: 59-year-old female presenting with right hip pain after drinking heavily last night. I suspect unremembered fall with possible pelvic fracture given that range of motion of the hip joint itself is relatively good. Charlotte provided for pain and x-rays pending. There is no other sign of trauma her head is atraumatic chest abdomen atraumatic bilateral upper extremities and right lower extremity atraumatic. No findings to suggest DVT no findings to suggest acute arterial occlusion. Patient is relatively young for severe osteopenia. However , if severe osteopenia exists and she continues to have severe pain with negative x-ray could consider CT scan at that time. Patient is without severe and of osteopenia to justify CT scan x-rays without acute fracture. Patient symptoms have improved. She has a walker in the garage that she can use. We discussed using a walker for the next few days and then transition to a cane. She reports that her orthopedic surgeon from a few years ago was in town but is no longer at the practice. We discussed that if she has persistent improvement in symptoms that she does not necessarily have to see anybody for follow-up. However, if she has persistent symptoms she should follow-up with the orthopedist.
--- NOTE | 2019-08-15 10:52 | CR ---
Pelvis and right hip: AP view of the pelvis was obtained as well as AP and frog-leg lateral views of the right hip. Comparison: Previous pelvis and right hip study of 03/20/17. Previous fracture within the right hip with orthopedic hardware in place. Vascular calcification is noted. Mild joint space narrowing is seen superiorly with the left hip. Sacroiliac joints are unremarkable. Bony structures are otherwise unremarkable. Impression: 1. Nothing acute is seen on 2 view right hip exam or on AP pelvis study. 2. Vascular calcification and mild degenerative change is noted within the left hip. Diagnostic code #2 This report was dictated in MDT
[2019-08-15 11:09] VITALS: BP 148/59; PULSE 83
== END 2019-08-15 11:09 | disposition home or self-care (01) ==
LOC: MW.ED 09:34
DX: M25.551 Pain in right hip (principal); I10 Essential (primary) hypertension; E10.9 Type 1 diabetes mellitus without complications; F41.9 Anxiety disorder, unspecified; M19.90 Unspecified osteoarthritis, unspecified site; Z79.899 Other long term (current) drug therapy; Z91.030 Bee allergy status
CPT/HCPCS: 73502; 99284; A9270; 99283

== ENCOUNTER 2021-07-04 17:50 | Inpatient (IN) | payer MEDICARE, MEDICAID ==
[2021-07-04] MEDS ORDERED: Sodium Chloride 0.9% 1,000 ML IV ONE (18:38)
[2021-07-04] MEDS ORDERED: VANCOmycin 1.5 GM/300 ML 1.5 GM in Premix Bag 1 BAG IV ONE (19:00)
[2021-07-04 19:39] LABS: CARBON DIOXIDE,CO2 24.6 mmol/L (21.0-32.0); POTASSIUM,K 4.3 mmol/L (3.5-5.1)
[2021-07-04] MEDS ORDERED: traMADol 50 MG Tab PO ONE (19:40)
[2021-07-04 20:02] LABS: CORONAVIRUS COVID-19 NAA NEGATIVE (NEGATIVE); INFLUENZA A NAA NEGATIVE (NEGATIVE); INFLUENZA B NAA NEGATIVE (NEGATIVE)
[2021-07-04] MEDS ORDERED: Cefepime 1 GM in Premix Bag 1 BAG IV ONE (20:41)
[2021-07-04] MEDS ORDERED: 50% Dextrose in Water 50 ML Syringe IVPUSH PRN (22:24)
[2021-07-04] MEDS ORDERED: Glucagon,Human Recombinant 1 MG Vial IM PRN (22:24)
[2021-07-04] MEDS ORDERED: Albuterol/Ipratropium 3.0-0.5 MG/3 ML Neb Soln NEB PRN (22:24)
[2021-07-04] MEDS ORDERED: Ondansetron 4 MG/2 ML SDV IVPUSH PRN (22:24)
[2021-07-04] MEDS ORDERED: Lactated Ringers 1,000 ML IV SCH (22:30)
[2021-07-04] MEDS ORDERED: traMADol 50 MG Tab PO PRN (22:31)
[2021-07-05] MEDS: Enoxaparin 40 MG/0.4 ML Syringe SUBCUT SCH ×2 (03:43→22:39)
[2021-07-05] MEDS ORDERED: Cefepime 1 GM in Premix Bag 1 BAG IV SCH (04:00)
[2021-07-05 07:58] LABS: BLOOD UREA NITROGEN,BUN 27 mg/dL (7.0-18.0); CARBON DIOXIDE,CO2 21.7 mmol/L (21.0-32.0); CHLORIDE,CL 104 mmol/L (98-107); GLUCOSE RANDOM 148 mg/dL (74-106); POTASSIUM,K 3.9 mmol/L (3.5-5.1); SODIUM,NA 136 mmol/L (136-145)
[2021-07-05] MEDS: Insulin Aspart 100 Units/ML 3 ML Pen SUBCUT SCH ×3 (08:13→17:08)
[2021-07-05] MEDS: Gabapentin 300 MG Cap PO SCH ×2 (08:14→21:10)
[2021-07-05] MEDS: Carvedilol 12.5 MG Tab PO SCH ×2 (08:15→21:11)
[2021-07-05] MEDS: DULoxetine 30 MG Cap PO SCH (08:16)
[2021-07-05] MEDS ORDERED: LORazepam 0.5 MG Tab PO PRN (09:00)
[2021-07-05] MEDS: NORETHINDRONE PO SCH (09:58)
[2021-07-05] MEDS: ESTRADIOL PO SCH (09:58)
[2021-07-05] MEDS: Piperacillin/Tazobactam 3.375 GM in Sodium Chloride 0.9% 50 ML IV SCH ×3 (11:31→23:40)
[2021-07-05] MEDS: Loperamide 2 MG Cap PO PRN (11:44)
[2021-07-05] MEDS: atorvaSTATin 10 MG Tab PO SCH (21:10)
[2021-07-06] MEDS: Piperacillin/Tazobactam 3.375 GM in Sodium Chloride 0.9% 50 ML IV SCH ×4 (05:19→22:17)
[2021-07-06 07:51] LABS: POTASSIUM,K 3.9 mmol/L (3.5-5.1)
[2021-07-06] MEDS: Gabapentin 300 MG Cap PO SCH ×2 (08:56→20:27)
[2021-07-06] MEDS: Carvedilol 12.5 MG Tab PO SCH ×2 (08:56→20:27)
[2021-07-06] MEDS: DULoxetine 30 MG Cap PO SCH (08:56)
[2021-07-06] MEDS: NORETHINDRONE PO SCH (09:08)
[2021-07-06] MEDS: ESTRADIOL PO SCH (09:08)
[2021-07-06] MEDS: Loperamide 2 MG Cap PO PRN ×3 (11:26→20:35)
[2021-07-06] MEDS: Insulin Aspart 100 Units/ML 3 ML Pen SUBCUT SCH (12:11)
[2021-07-06] MEDS: atorvaSTATin 10 MG Tab PO SCH (20:27)
[2021-07-06] MEDS: Acetaminophen 325 MG Tab PO PRN (20:35)
[2021-07-06] MEDS: Enoxaparin 40 MG/0.4 ML Syringe SUBCUT SCH (22:17)
[2021-07-06] MEDS ORDERED: Lactated Ringers 1,000 ML IV SCH (23:00)
[2021-07-07] MEDS: Piperacillin/Tazobactam 3.375 GM in Sodium Chloride 0.9% 50 ML IV SCH ×3 (04:55→16:40)
[2021-07-07] MEDS: Loperamide 2 MG Cap PO PRN (05:01)
[2021-07-07 07:23] LABS: CARBON DIOXIDE,CO2 24.1 mmol/L (21.0-32.0); POTASSIUM,K 4.2 mmol/L (3.5-5.1)
[2021-07-07] MEDS: Carvedilol 12.5 MG Tab PO SCH ×2 (09:10→20:20)
[2021-07-07] MEDS: Gabapentin 300 MG Cap PO SCH ×3 (09:10→20:20)
[2021-07-07] MEDS: DULoxetine 30 MG Cap PO SCH (09:10)
[2021-07-07] MEDS: ESTRADIOL PO SCH (10:50)
[2021-07-07] MEDS: NORETHINDRONE PO SCH (10:50)
[2021-07-07] MEDS ORDERED: Acidophilus with Citrus Pectin/L.acidophilus Tab PO SCH (13:30)
[2021-07-07] MEDS ORDERED: guaiFENesin 100 MG/5 ML Soln 5 ML UD Cup PO PRN (13:30)
[2021-07-07] MEDS: Benzonatate 100 MG Cap PO PRN (14:51)
[2021-07-07] MEDS: Acidophilus with Citrus Pectin/L.acidophilus Tab PO SCH (14:51)
[2021-07-07] MEDS: atorvaSTATin 10 MG Tab PO SCH (20:19)
[2021-07-07] MEDS: Enoxaparin 40 MG/0.4 ML Syringe SUBCUT SCH (20:20)
[2021-07-08] MEDS: Piperacillin/Tazobactam 3.375 GM in Sodium Chloride 0.9% 50 ML IV SCH ×5 (04:31→23:07)
[2021-07-08] MEDS: Benzonatate 100 MG Cap PO PRN ×2 (05:09→21:21)
[2021-07-08 06:25] LABS: BLOOD UREA NITROGEN,BUN 17 mg/dL (7.0-18.0); CARBON DIOXIDE,CO2 22.1 mmol/L (21.0-32.0); CHLORIDE,CL 106 mmol/L (98-107); GLUCOSE RANDOM 208 mg/dL (74-106); POTASSIUM,K 4.4 mmol/L (3.5-5.1); SODIUM,NA 139 mmol/L (136-145)
[2021-07-08] MEDS: Acidophilus with Citrus Pectin/L.acidophilus Tab PO SCH (08:06)
[2021-07-08] MEDS: Gabapentin 300 MG Cap PO SCH ×2 (08:07→21:11)
[2021-07-08] MEDS: DULoxetine 30 MG Cap PO SCH (08:07)
[2021-07-08] MEDS: Carvedilol 12.5 MG Tab PO SCH ×2 (08:07→21:15)
[2021-07-08] MEDS: ESTRADIOL PO SCH (08:09)
[2021-07-08] MEDS: NORETHINDRONE PO SCH (08:09)
[2021-07-08] MEDS: atorvaSTATin 10 MG Tab PO SCH (21:11)
[2021-07-08] MEDS: Enoxaparin 40 MG/0.4 ML Syringe SUBCUT SCH (21:12)
[2021-07-08] MEDS: Acetaminophen 325 MG Tab PO PRN (21:21)
[2021-07-09] MEDS: Piperacillin/Tazobactam 3.375 GM in Sodium Chloride 0.9% 50 ML IV SCH ×3 (05:02→11:25)
[2021-07-09 07:07] LABS: BLOOD UREA NITROGEN,BUN 15 mg/dL (7.0-18.0); CARBON DIOXIDE,CO2 25.7 mmol/L (21.0-32.0); CHLORIDE,CL 106 mmol/L (98-107); GLUCOSE RANDOM 188 mg/dL (74-106); POTASSIUM,K 3.6 mmol/L (3.5-5.1); SODIUM,NA 142 mmol/L (136-145)
[2021-07-09] MEDS: Benzonatate 100 MG Cap PO PRN (07:46)
[2021-07-09] MEDS: Carvedilol 12.5 MG Tab PO SCH (08:28)
[2021-07-09] MEDS: Acidophilus with Citrus Pectin/L.acidophilus Tab PO SCH (08:28)
[2021-07-09] MEDS: Gabapentin 300 MG Cap PO SCH (08:29)
[2021-07-09] MEDS: DULoxetine 30 MG Cap PO SCH (08:29)
[2021-07-09] MEDS: NORETHINDRONE PO SCH (08:30)
[2021-07-09] MEDS: ESTRADIOL PO SCH (08:30)
[2021-07-09] MEDS ORDERED: Losartan 50 MG Tab PO SCH (09:45)
[2021-07-09] MEDS ORDERED: Amoxicillin/Clavulanate K 875-125 MG Tab PO SCH (11:15)
[2021-07-09] MEDS ORDERED: Sulfamethoxazole/Trimethoprim 800-160 MG Tab PO SCH (11:15)
[2021-07-09 12:18] VITALS: BP 157/62; PULSE 76
== END 2021-07-09 14:50 | disposition home or self-care (01) | DRG 638 ==
LOC: MW.ED 17:50 → MW.MS 20:31
PROVIDERS: ADMIT Student in an Organized Health Care Education/Training Program; ATTEND Student in an Organized Health Care Education/Training Program
DX: E11.621 Type 2 diabetes mellitus with foot ulcer (principal); L97.529 Non-pressure chronic ulcer of other part of left foot with unspecified severity; L97.525 Non-pressure chronic ulcer of other part of left foot with muscle involvement without evidence of necrosis; E10.621 Type 1 diabetes mellitus with foot ulcer; E10.40 Type 1 diabetes mellitus with diabetic neuropathy, unspecified; N39.0 Urinary tract infection, site not specified; E87.1 Hypo-osmolality and hyponatremia; L03.116 Cellulitis of left lower limb; F41.9 Anxiety disorder, unspecified; Z20.822 Contact with and (suspected) exposure to COVID-19; M25.462 Effusion, left knee; I49.9 Cardiac arrhythmia, unspecified; I10 Essential (primary) hypertension; M19.90 Unspecified osteoarthritis, unspecified site; Z98.49 Cataract extraction status, unspecified eye; Z79.899 Other long term (current) drug therapy; Z79.4 Long term (current) use of insulin; Z91.030 Bee allergy status; Z98.51 Tubal ligation status; Z86.19 Personal history of other infectious and parasitic diseases; Z86.14 Personal history of Methicillin resistant Staphylococcus aureus infection; E11.42 Type 2 diabetes mellitus with diabetic polyneuropathy
CPT/HCPCS: 0240U; 36415; 73630; 73718; 80048; 80053; 80202; 81001; 82947; 83036; 83605; 83735; 84100; 85025; 85652; 86140; 87040; 87045; 87046; 87070; 87075; 87086; 87205; 87324; 87328; 87329; 87449; 87899; 93971; 96365; 99284; 87077; 87186; A9270-GY; J0692; J1650; J2405; J2543; J3370; J7030; J7050; J7120

== ENCOUNTER 2021-07-30 13:40 | Inpatient (IN) | payer MEDICARE, MEDICAID ==
[2021-07-30] MEDS ORDERED: Sodium Chloride 0.9% 2.5 ML Syringe FLUSH PRN ×3 (13:43→19:13)
[2021-07-30] MEDS ORDERED: Sodium Chloride 0.9% 10 ML Syringe FLUSH PRN ×3 (13:43→19:13)
[2021-07-30] MEDS ORDERED: Sodium Chloride 0.9% 1,000 ML IV ONE ×2 (13:45→15:33)
[2021-07-30] MEDS ORDERED: Cefepime 2 GM in Sodium Chloride 0.9% 50 ML IV ONE (13:45)
[2021-07-30] MEDS ORDERED: Acetaminophen 500 MG Tab PO ONE (13:48)
[2021-07-30] MEDS ORDERED: VANCOmycin 1.25 GM/250 ML 250 ML IV ONE (14:00)
[2021-07-30 14:39] LABS: CARBON DIOXIDE,CO2 20.6 mmol/L (21.0-32.0); POTASSIUM,K 3.8 mmol/L (3.5-5.1)
[2021-07-30] MEDS ORDERED: Docusate Sodium 100 MG Cap PO PRN (16:56)
[2021-07-30] MEDS ORDERED: 50% Dextrose in Water 50 ML Syringe IVPUSH PRN ×2 (17:17→18:53)
[2021-07-30] MEDS ORDERED: Glucagon,Human Recombinant 1 MG Vial IM PRN ×2 (17:17→18:53)
[2021-07-30] MEDS ORDERED: Insulin Aspart 100 Units/ML 3 ML Pen SUBCUT SCH (17:18)
[2021-07-30] MEDS: Sodium Chloride 0.9% 1,000 ML IV SCH ×3 (18:14→22:30)
[2021-07-30] MEDS: metroNIDAZOLE/Normal Saline 500 MG in Premix Bag 1 BAG IV SCH (18:15)
[2021-07-30] MEDS: Pantoprazole 40 MG in Sodium Chloride 0.9% 10 ML IVPUSH SCH (18:15)
[2021-07-30] MEDS ORDERED: Bupivacaine 0.25% 30 ML SDV ONE (18:51)
[2021-07-30] MEDS ORDERED: Insulin Aspart 100 Units/ML 3 ML Pen SUBCUT ONE (19:00)
[2021-07-30] MEDS ORDERED: Midazolam 1 MG/ML 2 ML SDV IVPUSH ONE (19:02)
[2021-07-30] MEDS ORDERED: Midazolam 1 MG/ML 2 ML SDV ONE ×2 (19:02→19:18)
[2021-07-30] MEDS ORDERED: Sodium Chloride 0.9% 20 ML SDV IV PRN (19:13)
[2021-07-30] MEDS ORDERED: Sodium Chloride 0.9% 1,000 ML IV SCH (19:15)
[2021-07-30] MEDS ORDERED: Propofol 200 MG/20 ML SDV ONE (19:18)
[2021-07-30] MEDS ORDERED: Insulin Regular in 0.9 % NACL 100 ML IV SCH ×2 (19:30→19:54)
[2021-07-30] MEDS ORDERED: ePHEDrine 50 MG/ML SDV ONE (20:16)
[2021-07-30] MEDS ORDERED: Insulin Glargine,Human Rec. Analog 100 Units/ML 3 ML Pen SUBCUT SCH (21:00)
[2021-07-30 22:17] LABS: CARBON DIOXIDE,CO2 18.3 mmol/L (21.0-32.0); POTASSIUM,K 3.2 mmol/L (3.5-5.1)
[2021-07-30] MEDS: Morphine 2 MG/ML SYRINGE IVPUSH PRN (23:14)
[2021-07-30] MEDS ORDERED: Potassium Chloride Riders 40 MEQ in Premix Bag 1 BAG IV ONE (23:44)
[2021-07-30] MEDS ORDERED: Dextrose 5%-0.45% NaCl 1,000 ML IV SCH (23:45)
[2021-07-31] MEDS: Acetaminophen 325 MG Tab PO PRN ×2 (01:08→10:02)
[2021-07-31] MEDS: metroNIDAZOLE/Normal Saline 500 MG in Premix Bag 1 BAG IV SCH ×3 (01:50→16:08)
[2021-07-31 02:28] LABS: CARBON DIOXIDE,CO2 19.7 mmol/L (21.0-32.0); POTASSIUM,K 4.1 mmol/L (3.5-5.1)
[2021-07-31 06:27] LABS: CARBON DIOXIDE,CO2 19.2 mmol/L (21.0-32.0); POTASSIUM,K 3.4 mmol/L (3.5-5.1)
[2021-07-31] MEDS: Cefepime 2 GM in Sodium Chloride 0.9% 50 ML IV SCH ×2 (07:50→20:14)
[2021-07-31] MEDS ORDERED: Cefepime 2 GM in Sodium Chloride 0.9% 50 ML IV SCH (08:00)
[2021-07-31] MEDS ORDERED: Sodium Chloride 0.9% 1,000 ML IV ONE (08:36)
[2021-07-31] MEDS: Heparin Sodium 5,000 Units/ML Vial SUBCUT SCH ×2 (08:50→16:08)
[2021-07-31] MEDS: Morphine 2 MG/ML SYRINGE IVPUSH PRN ×3 (09:00→22:05)
[2021-07-31 10:20] LABS: CARBON DIOXIDE,CO2 18.6 mmol/L (21.0-32.0); POTASSIUM,K 3.7 mmol/L (3.5-5.1)
[2021-07-31] MEDS: Sodium Chloride 0.9% 1,000 ML IV SCH ×2 (10:39→21:51)
[2021-07-31] MEDS: DULoxetine 30 MG Cap PO SCH (10:58)
[2021-07-31] MEDS: Insulin Glargine,Human Rec. Analog 100 Units/ML 3 ML Pen SUBCUT SCH (10:59)
[2021-07-31] MEDS: Ondansetron 4 MG/2 ML SDV IVPUSH PRN (12:51)
[2021-07-31] MEDS: Pantoprazole 40 MG in Sodium Chloride 0.9% 10 ML IVPUSH SCH (16:08)
[2021-07-31] MEDS: Insulin Aspart 100 Units/ML 3 ML Pen SUBCUT SCH (16:35)
[2021-07-31] MEDS: atorvaSTATin 10 MG Tab PO SCH (20:13)
[2021-08-01] MEDS: Heparin Sodium 5,000 Units/ML Vial SUBCUT SCH ×3 (00:12→16:00)
[2021-08-01] MEDS: metroNIDAZOLE/Normal Saline 500 MG in Premix Bag 1 BAG IV SCH ×3 (00:12→16:00)
[2021-08-01] MEDS: Acetaminophen 325 MG Tab PO PRN ×2 (04:35→16:27)
[2021-08-01] MEDS: Sodium Chloride 0.9% 1,000 ML IV SCH ×2 (05:45→16:01)
[2021-08-01 06:08] LABS: CARBON DIOXIDE,CO2 16.8 mmol/L (21.0-32.0)
[2021-08-01] MEDS: Insulin Aspart 100 Units/ML 3 ML Pen SUBCUT SCH ×3 (07:25→16:26)
[2021-08-01] MEDS: Cefepime 2 GM in Sodium Chloride 0.9% 50 ML IV SCH ×2 (07:26→19:37)
[2021-08-01] MEDS: DULoxetine 30 MG Cap PO SCH (08:10)
[2021-08-01] MEDS: Insulin Glargine,Human Rec. Analog 100 Units/ML 3 ML Pen SUBCUT SCH (08:12)
[2021-08-01 08:37] LABS: HEMOGLOBIN A1C 8.8 %
[2021-08-01] MEDS: Morphine 2 MG/ML SYRINGE IVPUSH PRN ×2 (08:47→16:27)
[2021-08-01] MEDS: Ondansetron 4 MG/2 ML SDV IVPUSH PRN ×2 (10:14→16:26)
[2021-08-01] MEDS: Pantoprazole 40 MG in Sodium Chloride 0.9% 10 ML IVPUSH SCH (16:01)
[2021-08-01] MEDS: atorvaSTATin 10 MG Tab PO SCH (20:12)
[2021-08-02] MEDS: Sodium Chloride 0.9% 1,000 ML IV SCH ×3 (00:11→17:00)
[2021-08-02] MEDS: Morphine 2 MG/ML SYRINGE IVPUSH PRN ×4 (00:11→23:07)
[2021-08-02] MEDS: metroNIDAZOLE/Normal Saline 500 MG in Premix Bag 1 BAG IV SCH ×3 (01:00→17:02)
[2021-08-02] MEDS: Heparin Sodium 5,000 Units/ML Vial SUBCUT SCH (01:01)
[2021-08-02] MEDS: Ondansetron 4 MG/2 ML SDV IVPUSH PRN ×3 (04:48→23:13)
[2021-08-02 05:58] LABS: POTASSIUM,K 3.7 mmol/L (3.5-5.1)
[2021-08-02] MEDS: Cefepime 2 GM in Sodium Chloride 0.9% 50 ML IV SCH ×2 (08:00→21:28)
[2021-08-02] MEDS: Insulin Aspart 100 Units/ML 3 ML Pen SUBCUT SCH ×3 (08:57→17:37)
[2021-08-02] MEDS ORDERED: Insulin Glargine,Human Rec. Analog 100 Units/ML 3 ML Pen SUBCUT SCH (09:00)
[2021-08-02] MEDS: DULoxetine 30 MG Cap PO SCH (09:35)
[2021-08-02] MEDS: SODIUM CHLORIDE 0.9% IVPUSH SCH (10:13)
[2021-08-02] MEDS: DAPTOMYCIN IVPUSH SCH (10:13)
[2021-08-02] MEDS ORDERED: Bupivacaine 0.5% 10 ML SDV ONE (16:58)
[2021-08-02] MEDS ORDERED: Lidocaine 1% 20 ML MDV ONE (16:58)
[2021-08-02] MEDS ORDERED: EPINEPHrine 1 MG/ML SDV ONE (17:02)
[2021-08-02] MEDS: Pantoprazole 40 MG in Sodium Chloride 0.9% 10 ML IVPUSH SCH (17:02)
[2021-08-02] MEDS ORDERED: fentaNYL 100 MCG/2 ML SDV ONE (17:04)
[2021-08-02] MEDS ORDERED: Ketamine HCL/NACL, ISO-OSM 50 MG/5 ML Syringe ONE ×2 (18:05→18:20)
[2021-08-02] MEDS ORDERED: Midazolam 1 MG/ML 2 ML SDV ONE (18:06)
[2021-08-02] MEDS ORDERED: Propofol 200 MG/20 ML SDV ONE ×2 (18:20→19:32)
[2021-08-02] MEDS: atorvaSTATin 10 MG Tab PO SCH (21:28)
[2021-08-03] MEDS: metroNIDAZOLE/Normal Saline 500 MG in Premix Bag 1 BAG IV SCH ×3 (00:17→17:33)
[2021-08-03] MEDS ORDERED: Metoclopramide 10 MG/2 ML SDV IVPUSH PRN (01:28)
[2021-08-03] MEDS: Acetaminophen 325 MG Tab PO PRN (02:07)
[2021-08-03] MEDS: Sodium Chloride 0.9% 1,000 ML IV SCH ×4 (05:19→19:36)
[2021-08-03 06:28] LABS: BLOOD UREA NITROGEN,BUN 23 mg/dL (7.0-18.0); CARBON DIOXIDE,CO2 18.1 mmol/L (21.0-32.0); CHLORIDE,CL 108 mmol/L (98-107); GLUCOSE RANDOM 183 mg/dL (74-106); POTASSIUM,K 3.2 mmol/L (3.5-5.1); SODIUM,NA 139 mmol/L (136-145)
[2021-08-03] MEDS ORDERED: oxyCODONE 5 MG Tab PO PRN (08:00)
[2021-08-03] MEDS ORDERED: Potassium Chloride 10 MEQ Tab.ER PO ONE (08:00)
[2021-08-03] MEDS ORDERED: Magnesium Sulfate/Water 4 GM in Premix Bag 1 BAG IV ONE (08:00)
[2021-08-03] MEDS: DULoxetine 30 MG Cap PO SCH (08:49)
[2021-08-03] MEDS: Phosphorus #1 250 MG Tab PO SCH ×3 (08:49→17:33)
[2021-08-03] MEDS: Cefepime 2 GM in Sodium Chloride 0.9% 50 ML IV SCH ×2 (08:50→16:49)
[2021-08-03] MEDS: Carvedilol 12.5 MG Tab PO SCH ×2 (08:50→19:59)
[2021-08-03] MEDS: Insulin Aspart 100 Units/ML 3 ML Pen SUBCUT SCH ×3 (09:00→17:10)
[2021-08-03] MEDS: Insulin Glargine,Human Rec. Analog 100 Units/ML 3 ML Pen SUBCUT SCH (09:15)
[2021-08-03] MEDS: DAPTOMYCIN IVPUSH SCH (10:40)
[2021-08-03] MEDS: SODIUM CHLORIDE 0.9% IVPUSH SCH (10:40)
[2021-08-03] MEDS: Gabapentin 300 MG Cap PO SCH ×2 (12:29→19:59)
[2021-08-03] MEDS: Pantoprazole 40 MG in Sodium Chloride 0.9% 10 ML IVPUSH SCH (16:49)
[2021-08-03] MEDS ORDERED: Sodium Chloride 0.9% 1,000 ML IV SCH (19:15)
[2021-08-03] MEDS: atorvaSTATin 10 MG Tab PO SCH (19:59)
[2021-08-03] MEDS: Heparin Sodium 5,000 Units/ML Vial SUBCUT SCH (22:19)
[2021-08-04] MEDS: Cefepime 2 GM in Sodium Chloride 0.9% 50 ML IV SCH ×4 (00:03→23:32)
[2021-08-04] MEDS: Phosphorus #1 250 MG Tab PO SCH ×3 (00:03→13:32)
[2021-08-04] MEDS: traMADol 50 MG Tab PO PRN ×3 (00:07→18:17)
[2021-08-04] MEDS: metroNIDAZOLE/Normal Saline 500 MG in Premix Bag 1 BAG IV SCH ×3 (01:10→17:30)
[2021-08-04] MEDS: Heparin Sodium 5,000 Units/ML Vial SUBCUT SCH ×3 (05:06→21:43)
[2021-08-04 06:37] LABS: BLOOD UREA NITROGEN,BUN 17 mg/dL (7.0-18.0); CARBON DIOXIDE,CO2 18.4 mmol/L (21.0-32.0); CHLORIDE,CL 108 mmol/L (98-107); GLUCOSE RANDOM 191 mg/dL (74-106); POTASSIUM,K 3.2 mmol/L (3.5-5.1); SODIUM,NA 139 mmol/L (136-145)
[2021-08-04] MEDS: Insulin Aspart 100 Units/ML 3 ML Pen SUBCUT SCH ×3 (08:42→17:32)
[2021-08-04] MEDS: Carvedilol 12.5 MG Tab PO SCH ×2 (08:46→20:36)
[2021-08-04] MEDS: Gabapentin 300 MG Cap PO SCH ×2 (08:46→20:36)
[2021-08-04] MEDS: DULoxetine 30 MG Cap PO SCH (08:46)
[2021-08-04] MEDS: SODIUM CHLORIDE 0.9% IVPUSH SCH (08:55)
[2021-08-04] MEDS: DAPTOMYCIN IVPUSH SCH (08:55)
[2021-08-04] MEDS: Insulin Glargine,Human Rec. Analog 100 Units/ML 3 ML Pen SUBCUT SCH (09:08)
[2021-08-04] MEDS: Ondansetron 4 MG/2 ML SDV IVPUSH PRN (10:53)
[2021-08-04] MEDS ORDERED: Potassium Chloride Riders 40 MEQ in Premix Bag 1 BAG IV ONE (13:00)
[2021-08-04] MEDS: Pantoprazole 40 MG in Sodium Chloride 0.9% 10 ML IVPUSH SCH (17:30)
[2021-08-04] MEDS: Losartan 50 MG Tab PO SCH (17:31)
[2021-08-04] MEDS: Furosemide 20 MG Tab PO SCH (17:31)
[2021-08-04] MEDS ORDERED: Iopamidol 755 MG/ML 500 ML Multipack Bottle IVPUSH ONE (18:18)
[2021-08-04] MEDS: atorvaSTATin 10 MG Tab PO SCH (20:36)
[2021-08-04] MEDS ORDERED: Furosemide 20 MG/2 ML VIAL IVPUSH ONE (22:28)
[2021-08-05] MEDS: metroNIDAZOLE/Normal Saline 500 MG in Premix Bag 1 BAG IV SCH ×3 (00:33→17:54)
[2021-08-05] MEDS: Ondansetron 4 MG/2 ML SDV IVPUSH PRN (04:43)
[2021-08-05] MEDS: Heparin Sodium 5,000 Units/ML Vial SUBCUT SCH ×2 (06:08→13:36)
[2021-08-05 07:03] LABS: BLOOD UREA NITROGEN,BUN 17 mg/dL (7.0-18.0); CARBON DIOXIDE,CO2 22.2 mmol/L (21.0-32.0); CHLORIDE,CL 103 mmol/L (98-107); GLUCOSE RANDOM 252 mg/dL (74-106); POTASSIUM,K 3.1 mmol/L (3.5-5.1); SODIUM,NA 135 mmol/L (136-145)
[2021-08-05] MEDS: Insulin Aspart 100 Units/ML 3 ML Pen SUBCUT SCH ×3 (08:30→17:55)
[2021-08-05] MEDS: Cefepime 2 GM in Sodium Chloride 0.9% 50 ML IV SCH ×2 (09:02→16:45)
[2021-08-05] MEDS: Carvedilol 12.5 MG Tab PO SCH (09:02)
[2021-08-05] MEDS: Losartan 50 MG Tab PO SCH (09:03)
[2021-08-05] MEDS: DULoxetine 30 MG Cap PO SCH (09:03)
[2021-08-05] MEDS: Furosemide 20 MG Tab PO SCH (09:03)
[2021-08-05] MEDS: Insulin Glargine,Human Rec. Analog 100 Units/ML 3 ML Pen SUBCUT SCH (09:04)
[2021-08-05] MEDS: Gabapentin 300 MG Cap PO SCH (09:05)
[2021-08-05] MEDS ORDERED: Potassium Chloride 20 MEQ Tab.ER PO SCH (09:30)
[2021-08-05] MEDS ORDERED: Magnesium Oxide 400 MG Tab PO ONE (09:52)
[2021-08-05] MEDS ORDERED: Phosphorus #1 250 MG Tab PO ONE (09:52)
[2021-08-05] MEDS: traMADol 50 MG Tab PO PRN (09:59)
[2021-08-05] MEDS: DAPTOMYCIN IVPUSH SCH (09:59)
[2021-08-05] MEDS: SODIUM CHLORIDE 0.9% IVPUSH SCH (09:59)
[2021-08-05] MEDS ORDERED: Potassium Chloride Riders 40 MEQ in Premix Bag 1 BAG IV ONE (10:30)
[2021-08-05] MEDS ORDERED: amLODIPine 5 MG Tab PO SCH (13:15)
[2021-08-05] MEDS ORDERED: Insulin Glargine,Human Rec. Analog 100 Units/ML 3 ML Pen SUBCUT ONE (13:17)
[2021-08-05] MEDS: Acetaminophen 325 MG Tab PO PRN (13:36)
[2021-08-05 17:09] VITALS: BP 138/56; PULSE 75
[2021-08-05] MEDS: Pantoprazole 40 MG in Sodium Chloride 0.9% 10 ML IVPUSH SCH (17:50)
[2021-08-06] MEDS ORDERED: Insulin Glargine,Human Rec. Analog 100 Units/ML 3 ML Pen SUBCUT SCH (09:00)
== END 2021-08-05 19:30 | disposition home or self-care (01) | DRG 853 ==
LOC: MW.ED 13:40 → EEVIPCON 16:26 → MW.ICU 16:26 → MW.MS 08-05 15:50
PROVIDERS: ADMIT Internal Medicine; ATTEND Internal Medicine
PROC: 02HV33Z Insertion of Infusion Device into Superior Vena Cava, Percutaneous Approach (ICD-10-PCS; 2021-07-30)
PROC: 0JBR0ZZ Excision of Left Foot Subcutaneous Tissue and Fascia, Open Approach (ICD-10-PCS; 2021-07-30)
PROC: 3E033XZ Introduction of Vasopressor into Peripheral Vein, Percutaneous Approach (ICD-10-PCS; 2021-07-30)
PROC: 0QTP0ZZ Resection of Left Metatarsal, Open Approach (ICD-10-PCS; principal; 2021-08-02)
PROC: 0QBP0Z2 Excision of Left Metatarsal, Sesamoid Bone(s) 1st Toe, Open Approach (ICD-10-PCS; 2021-08-02)
DX: A41.9 Sepsis, unspecified organism (principal); A41.02 Sepsis due to Methicillin resistant Staphylococcus aureus; I33.0 Acute and subacute infective endocarditis; L97.529 Non-pressure chronic ulcer of other part of left foot with unspecified severity; R65.21 Severe sepsis with septic shock; L97.525 Non-pressure chronic ulcer of other part of left foot with muscle involvement without evidence of necrosis; N17.9 Acute kidney failure, unspecified; E10.621 Type 1 diabetes mellitus with foot ulcer; Z20.822 Contact with and (suspected) exposure to COVID-19; B95.62 Methicillin resistant Staphylococcus aureus infection as the cause of diseases classified elsewhere; F10.11 Alcohol abuse, in remission; I10 Essential (primary) hypertension; R65.20 Severe sepsis without septic shock; R10.32 Left lower quadrant pain; E10.40 Type 1 diabetes mellitus with diabetic neuropathy, unspecified; M19.90 Unspecified osteoarthritis, unspecified site; F41.9 Anxiety disorder, unspecified; D64.9 Anemia, unspecified; E87.8 Other disorders of electrolyte and fluid balance, not elsewhere classified; E78.5 Hyperlipidemia, unspecified; Z98.51 Tubal ligation status; Z79.899 Other long term (current) drug therapy; Z91.030 Bee allergy status
CPT/HCPCS: 01470; 01480; 36415; 36556; 51702; 70450; 70450-26; 71045; 71045-26; 73620-26-LT; 73620-LT; 73700-26-LT; 73700-LT; 73718-26-LT; 73718-LT; 74174; 74174-26; 80048; 80053; 80307; 81001; 82009; 82803; 82947; 83036; 83605; 83690; 83735; 84100; 85025; 85652; 86140; 87040; 87070; 87075; 87077; 87154; 87186; 87205; 93005; 93306; 96365; 96366; 96368; 97163-GP; 97530-GP; 99285-25; 99291; A9270-GY; C9113; J0171; J0692; J0878; J1644; J1815; J1815-GY; J1940; J2250; J2270; J2405; J2704; J2765; J3010; J3370; J3475; J3480; J3490; J7030; J7042; J7050; Q9967; U0002

== ENCOUNTER 2022-06-04 06:34 | Day surgery (SDC) | payer MEDICARE, MEDICAID ==
[~2022-06-04 06:34] MED LIST: Lactated Ringers 1,000 ML IV SCH; Sodium Chloride 0.9% 10 ML Syringe FLUSH PRN; Sodium Chloride 0.9% 2.5 ML Syringe FLUSH PRN; Sodium Chloride 0.9% 20 ML SDV IV PRN
[2022-06-04] MEDS ORDERED: Lidocaine 2% 5 ML SDV ONE (07:23)
[2022-06-04] MEDS ORDERED: fentaNYL 100 MCG/2 ML SDV ONE (07:24)
[2022-06-04] MEDS ORDERED: Propofol 200 MG/20 ML SDV ONE (07:24)
[2022-06-04 09:12] VITALS: BP 147/61; PULSE 84
== END 2022-06-04 09:21 | disposition home or self-care (01) ==
LOC: MW.SDS 06:34
PROVIDERS: ATTEND Surgery
DX: K57.30 Diverticulosis of large intestine without perforation or abscess without bleeding (principal); I10 Essential (primary) hypertension; F41.9 Anxiety disorder, unspecified; F32.A Depression, unspecified; E10.9 Type 1 diabetes mellitus without complications; E78.00 Pure hypercholesterolemia, unspecified; M54.2 Cervicalgia; G89.29 Other chronic pain; D64.9 Anemia, unspecified; Z91.030 Bee allergy status; Z98.890 Other specified postprocedural states; Z79.899 Other long term (current) drug therapy; Z79.4 Long term (current) use of insulin
CPT/HCPCS: 45380; 82947; J2704; J3010; J7120; 00811; J3490

== ENCOUNTER 2022-08-22 17:10 | Observation (INO) | payer MEDICARE, MEDICAID ==
[2022-08-22] MEDS ORDERED: Dextrose 10% in Water 500 ML ONE (17:17)
[2022-08-22] MEDS ORDERED: Sodium Chloride 23.4% 77 MEQ in Dextrose 10% in Water 500 ML IV STA ×2 (17:30)
[2022-08-22] MEDS ORDERED: Dextrose 10% in Water 500 ML IV STA (17:31)
[2022-08-22 17:34] LABS: BASOPHILS PERCENT AUTO 0.2 % (0.0-1.5); EOSINOPHILS ABSOLUTE AUTO 0.4 K/uL (0.0-0.7); EOSINOPHILS PERCENT AUTO 4.7 % (0.0-7.0); HEMATOCRIT 34.5 % (36.0-46.0); HEMOGLOBIN 11.4 g/dL (12.0-16.0); LYMPHOCYTES ABSOLUTE AUTO 2.8 K/uL (0.6-2.4); LYMPHOCYTES PERCENT AUTO 32.6 % (16.0-40.0); MEAN CORPUSCULAR HEMOGLOBIN 30.8 pg (27.0-32.0); MEAN CORPUSCULAR VOLUME 93.2 fL (80.0-98.0); MONOCYTES PERCENT AUTO 11.9 % (0.0-15.0); NEUTROPHILS ABSOLUTE AUTO 4.4 K/uL (1.4-5.7); NEUTROPHILS PERCENT AUTO 50.6 % (48.0-80.0); NRBC ABSOLUTE 0 K/uL; PLATELET COUNT,PLT 224 K/uL (150-400); WHITE BLOOD CELL COUNT,WBC 8.68 K/uL (4.0-11.0)
[2022-08-22 18:02] LABS: A/G RATIO 1.4 (0.9-1.6); ALANINE AMINOTRANSFERASE,ALT 38 IU/L (14-63); ALBUMIN 4.2 g/dL (3.4-5.0); ALKALINE PHOSPHATASE 80 U/L (46-116); ASPARTATE AMNIOTRANSFERASE,AST 22 IU/L (15-37); BILIRUBIN TOTAL 0.7 mg/dL (0.2-1.0); BLOOD UREA NITROGEN,BUN 55 mg/dL (7.0-18.0); CALCIUM 9.7 mg/dL (8.5-10.1); CHLORIDE,CL 103 mmol/L (98-107); CREATININE 1.6 mg/dL (0.6-1.0); EST CRCL DRUG DOSING (CG) 35.91 mL/min; GLUCOSE RANDOM 45 mg/dL (74-106); LIPASE 76 U/L (73-393); MAGNESIUM 2.5 mg/dL (1.8-2.4); POTASSIUM,K 4.6 mmol/L (3.5-5.1); PROTEIN TOTAL,TP 7.3 g/dL (6.4-8.2); SODIUM,NA 138 mmol/L (136-145)
[2022-08-22 18:11] LABS: ESTIMATED GFR 36 mL/min (>60); ETHANOL BLOOD MEDICAL < 3.0 mg/dL
[2022-08-22 18:45] LABS: APPEARANCE,URINE CLEAR; BILIRUBIN,URINE NEGATIVE (NEGATIVE); COLOR,URINE YELLOW; GLUCOSE,URINE NEGATIVE (NEGATIVE); KETONES,URINE NEGATIVE (NEGATIVE); LEUKOCYTE ESTERASE,URINE TRACE (NEGATIVE); NITRITE,URINE NEGATIVE (NEGATIVE); OCCULT BLOOD,URINE NEGATIVE (NEGATIVE); PROTEIN,URINE NEGATIVE (NEGATIVE); UROBILINOGEN,URINE 0.2 EU/dL (<2.0)
[2022-08-22 18:59] LABS: BACTERIA,URINE RARE (NEGATIVE); EPITHELIAL CELLS,URINE RARE (NONE-FEW); RBC,URINE 0-1 (0-2/HPF); WBC,URINE 0-4 (0-5/HPF)
[2022-08-22] MEDS ORDERED: Insulin Glargine,Hum.Rec.Anlog 100 UNIT/ML 3 ML Pen SUBCUT SCH (21:00)
[2022-08-22] MEDS ORDERED: Gabapentin 300 MG Cap PO SCH (21:27)
[2022-08-22] MEDS: Carvedilol 12.5 MG Tab PO SCH (22:54)
[2022-08-22] MEDS ORDERED: 50% Dextrose in Water 50 ML Syringe IVPUSH PRN (23:09)
[2022-08-22] MEDS ORDERED: Glucagon,Human Recombinant 1 MG Vial IM PRN (23:09)
[2022-08-23 06:19] LABS: BASOPHILS PERCENT AUTO 0.5 % (0.0-1.5); EOSINOPHILS ABSOLUTE AUTO 0.3 K/uL (0.0-0.7); EOSINOPHILS PERCENT AUTO 4.7 % (0.0-7.0); HEMATOCRIT 30.5 % (36.0-46.0); LYMPHOCYTES ABSOLUTE AUTO 1.7 K/uL (0.6-2.4); LYMPHOCYTES PERCENT AUTO 26.7 % (16.0-40.0); MEAN CORPUSCULAR HEMOGLOBIN 30.2 pg (27.0-32.0); MEAN CORPUSCULAR HGB CONC 32.8 g/dL (31.0-37.0); MEAN CORPUSCULAR VOLUME 92.1 fL (80.0-98.0); MONOCYTES ABSOLUTE AUTO 0.6 K/uL (0.0-0.8); MONOCYTES PERCENT AUTO 9.8 % (0.0-15.0); NEUTROPHILS ABSOLUTE AUTO 3.8 K/uL (1.4-5.7); NEUTROPHILS PERCENT AUTO 58.3 % (48.0-80.0); NRBC ABSOLUTE 0 K/uL; PLATELET COUNT,PLT 204 K/uL (150-400); RED BLOOD CELL COUNT 3.31 M/uL (4.30-5.90); WHITE BLOOD CELL COUNT,WBC 6.45 K/uL (4.0-11.0)
[2022-08-23 06:39] LABS: CARBON DIOXIDE,CO2 25.5 mmol/L (21.0-32.0); CREATININE 1.4 mg/dL (0.6-1.0); EST CRCL DRUG DOSING (CG) 41.04 mL/min; POTASSIUM,K 5.3 mmol/L (3.5-5.1)
[2022-08-23] MEDS: Carvedilol 12.5 MG Tab PO SCH (07:59)
[2022-08-23] MEDS: Insulin Aspart 100 Units/ML 3 ML Pen SUBCUT SCH ×2 (07:59→12:01)
[2022-08-23 11:47] VITALS: BP 124/60; PULSE 86
[2022-08-23] MEDS ORDERED: Insulin Aspart 100 Units/ML 3 ML Pen SUBCUT ONE (12:08)
== END 2022-08-23 14:25 | disposition home or self-care (01) ==
LOC: MW.ED 17:10 → MW.MS 18:36
PROVIDERS: ADMIT Internal Medicine; ATTEND Internal Medicine
DX: E10.65 Type 1 diabetes mellitus with hyperglycemia (principal); I10 Essential (primary) hypertension; E78.00 Pure hypercholesterolemia, unspecified; M54.2 Cervicalgia; G89.29 Other chronic pain; D64.9 Anemia, unspecified; F41.9 Anxiety disorder, unspecified; Z88.5 Allergy status to narcotic agent; Z91.030 Bee allergy status; Z79.899 Other long term (current) drug therapy; Z79.4 Long term (current) use of insulin; Z98.890 Other specified postprocedural states
CPT/HCPCS: 36415; 80048; 80053; 80307; 81001; 82947; 83690; 83735; 84484; 85025; 87086; 93005; 93010; 96360; 96361; 99221; 99239; 99284; 99285-25; A9270-GY; G0378; J1815-GY; J3490